=== PATIENT | female | born 1950 | race Caucasian/White ===

== ENCOUNTER 2025-02-17 14:26 | Outpatient (CLI) | payer MEDICARE, MEDICAID, SELFPAY ==
--- NOTE | ~2025-02-17 | XR_ITS ---
XR hip BI 2V w AP pelvis 02/17/2025 15:16 Indication: Radiculopathy and hip pain Procedure: AP pelvis and 2 views each hip Comparison: No prior studies for comparison. Findings: There is mild symmetric osteoarthritis of the hips. No fracture, subluxation or dislocation . Pelvic rings are intact. Sacral foramen are symmetric. Impression: 1: Mild bilateral symmetric osteoarthritis of the hips. Reviewed, dictated and finalized at location A. Impression: 1: Mild bilateral symmetric osteoarthritis of the hips.
--- NOTE | ~2025-02-17 | XR_ITS ---
EXAMINATION: XR lumbar spine 2-3V DATE: 02/17/2025 15:16 INDICATION: Lumbar radiculopathy. TECHNIQUE: 3 views of lumbar spine were obtained. COMPARISON: None. FINDINGS: There is 4 degrees levocurvature of lumbar spine. There are chronic compression fractures o f T12 and L1 with 2/5 loss of height. There is mildly decreased disc height at L3-L4. There are endpl ate osteophytes at all levels. There is multilevel facet joint osteoarthritis, severe in lower lumbar spine. IMPRESSION: 1. Mild lumbar spondylosis. Reviewed, dictated and finalized at location A. IMPRESSION: 1. Mild lumbar spondylosis.
--- NOTE | ~2025-02-17 | XR_ITS ---
HISTORY: Radiculopathy/pain in hips COMPARISON: None TECHNIQUE: 2 views of the cervical spine were performed. FINDINGS: Visualization of the cervical spine to the inferior endplate of T1. Anterior fixation is identified at the levels of C4 through C7. No prevertebral soft tissue swelling is appreciated. The dens is equidistant between the pillars, without asymmetry. Air column within the trachea is midline. The visualized portions of the bilateral upper lung rausch are unremarkable. IMPRESSION: Anterior fixation of the cervical spine, as detailed above. Reviewed, dictated and finalized at location A.
--- OUTSIDE RECORDS SUMMARY | 2025-02-17 15:58 | XMS_ITS | Encounter Summary ---
Author Organization [facility] Address [address] [place] [address] Care Team Providers Care Propagator Laborer Name Role Phone Doretha Quiros MD Primary Care Provider [phone] Encounter Details Date Type Department Care Team (Late st Contact Info) Description 07/25/2006 Orders Only [facility] Internal Medicine Medical [place] [facility] [address] [facility] [address] [address] Doretha Quiros MD [address] [place] [address] [address] [place] [address] Social History Tobacco Use Types Packs/Day Years Used Date Smoking Tobacco: Never Assessed Comments Unknown Sex and Gender Information Value Date Recorded Sex Assigned at Not on file Legal Sex Female 3:37 AM BATHROOM TILING PROFESSIONAL Gender Identity Not on file Sexual Orientation Not on file documented as of this encounter Progress Notes * Doretha Quiros MD - 09/02/2008 4:46 PM CDT TIME:09:05 am PATIENT`S HOME PHONE: PATIENT`S WORK PHONE: PATIENT`S INSURANCE: [facility] Open Lending [facility] WHO TOOK THE CALL: Angela Mckeon I GENERAL INFORMATION WHO CALLED: Patient called. CURRENT ALLERGY LIST: NKDA PHARMACY NUMBER: mail to pt PROBLEMS: celebrex not covered and needs to get something else mailed out to her today SECTION 1: DOCTOR`S RESPONSE: al 07/25/06 at 09:11 am MEDICATIONS: Call in to Pharmacy CELEBREX ORAL CAPSULE CONVENTIONAL 200 MG, 1 Every Day, 90 Dispensed, 3 Fills, status: DISCONTINUED, 07/25/2006. PIROXICAM ORAL CAPSULE CONVENTIONAL 20 MG, 1 Every Day, 90 Dispensed, 3 Fills, status: NEW PRESCRIPTION, 07/25/2006. FINAL ACTION: raymlm 07/25/06 at 09:[address] caballero printer to be mailed. ADDITIONAL COMMENTS: done Electronically Signed by: Angela Mckeon on Tuesday, July 25, 2006 documented in this encounter Plan of Treatment Not on file documented as of this encounter Visit Diagnoses Not on filedocumented in this encounter Care Teams Propagator Laborer Relationship Specialty Start Date End Date Doretha Quiros MD PCP - General 11/27/06 12/24/24 NO DME 08/13/18 documented as of this encounter
--- OUTSIDE RECORDS SUMMARY | 2025-02-17 15:58 | XMS_ITS | Encounter Summary ---
Author Organization [facility] Address [address] [place] [address] Care Team Providers Care Air Gun Operator Name Role Phone Doretha Quiros MD Primary Care Provider [phone] Encounter Details Date Type Department Care Team (Latest Contact Info) Description 07/06/2007 Outpatient Historical [facility] Internal Medicine Medical [place] [facility] [address] [facility] [address] [address] Doretha Quiros MD [address] [place] [address] [address] [place] [address] Cellulitis and Abscess of Upper Arm and Forearm (Primary Dx) Social History Tobacco Use Types Packs/Day Years Used Date Smoking Tobacco: Never Assessed Comments Unknown Sex and Gender Information Value Date Recorded Sex Assigned at Not on file Legal Sex Female 3:37 AM PATHOLOGY LABORATORY AIDE Gender Identity Not on file Sexual Orientation Not on file documented as of this encounter Plan of Treatment Not on file documented as of this encounter Visit Diagnoses Diagnosis Cellulitis and abscess of upper arm and forearm- Primary documented in this encounter Care Teams Air Gun Operator Relationship Specialty Start Date End Date Doretha Quiros MD PCP - General 11/27/06 12/24/24 NO DME 08/13/18 documented as of this encounter
--- OUTSIDE RECORDS SUMMARY | 2025-02-17 15:58 | XMS_ITS | Clinical Summary ---
Author Organization [facility] Address [address] [place] [address] Care Team Providers Care Loom Doffer Name Role Phone Doretha Quiros MD Primary Care Provider [phone] Source Comments [facility],non-owned Affiliates and Associated Physician Practices is amultiple site organization consisting of ambulatory clinics and hospital sitesin [place], [place], [place] and [place]. This disclosure is being madepursuant to the Care Everywhere program and may not contain all information available regarding this patient. Last updated 18.[facility] Allergies No known active allergies Medications * Be aware that medications may not be up to date on this document. Alwaysverify current medications with the patient. Medication Sig Dispensed Refills Start Date End Date Status lisinopril-hydroCHLOR Othiazide (PRINZIDE; ZESTORETIC) 20-12.5 MG tablet 01/27/2017 Active baclofen (LIORESAL) 10 MG tablet 02/27/2017 Active raNITIdine (ZANTAC) 150 MG tablet 01/27/2017 Active omeprazole (PRILOSEC) 20 MG capsule 01/22/2017 Active HYDROcodone-acetamino phen (NORCO) 10-325 MG tablet TK 1-2 TS PO Q 4-6 H PRN P 0 08/21/2018 Active metoprolol succinate XL 24hr (TOPROL XL) 100 MG tablet 08/13/2018 Active simvastatin (ZOCOR) 40 MG tablet 08/14/2018 Active traMADol (ULTRAM) 50 MG tablet Take 100 mg by mouth every 6 hours as needed Active Calcium Carbonate-Vit D-Min (CALCIUM 1200 PO) Active amLODIPine (NORVASC) 5 MG tablet 02/01/2019 Active anastrozole (ARIMIDEX) 1 MG tablet TAKE 1 TABLET BY MOUTH DAILY. START AFTER RADIATION IS COMPLETED.. 02/07/2019 Active traZODone (DESYREL) 100 MG tablet Take 100 mg by mouth at bedtime Active Active Problems Problem Noted Date Diagnosed Date Mixed conductive and sensori neural hearing loss of both ears 02/22/2019 Retraction of tympanic membrane of right ear 03/2019 Disturbance of skin sensation 08/31/2018 Acute pain of right knee 08/31/2018 Bilateral low back pain without sciatica 018 Cervicalgia 08/31/2018 Complex tear of medial menis cus of right knee as current injury 08/31/2018 Diffuse pain 08/31/2018 Enthesopathy of hip region 08/31/2018 Ganglion of joint 08/31/2018 Inflammatory polyarthropathy 08/31/2018 Low back pain 08/31/2018 Myopathy 08/31/2018 Other chronic postoperative pain 08/31/2018 Other internal derangements of right knee 2017 Other meniscus derangements, posterior horn of medial meniscus, right knee 08/31/2018 Pain, chronic postoperative 08/31/2018 Primary osteoarthritis of fi rst carpometacarpal joint of left hand 08/31/2018 Primary osteoarthritis of right knee 08/31/2018 Spinal stenosis in cervical region 08/31/2018 Spinal stenosis of cervical region 08/31/2018 Spinal stenosis of lumbar region 08/31/2018 Spondylosis of cervical brian 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 08/31/2018 Status post arthroscopy of right knee 08/31/2018 Strain of other muscle(s) an d tendon(s) at lower leg level, right leg, initial encounter 08/31/2018 Primary osteoarthritis of left knee 08/13/2018 Invasive ductal carcinoma of breast, stage 1, le ft 02/22/2018 Overview (08/31/2018): Overview: PATHOLOGY: Date: 02/08/18 bx; 02/19/18 lump with SLN Breast: Left Cell type: IDC, 1.1 cm ER: (+) 8/8 MT: (+) 8/8 Her2 homa: (not) amplified Grade: IG (NH7) Lymph node status:(-) 0/3 LVI: (-) not present Staging: T1c N0 Mx Stage: 1 Body mass index (bmi) 29.0-29.9, adult 8 Conductive hearing loss of r ight ear with restricted hearing of left ear 04/05/2017 Hyperparathyroidism, primary 01/16/2017 Chronic right mastoiditis 09/16/2016 Gastroesophageal reflux disease without esophagi tis 05/06/2016 PEDERSON (nonalcoholic steatohepatitis) 05/06/2016 Other specified disorders of eustachian tube, bi lateral 03/23/2016 Other specified disorders of tympanic membrane, bilateral 03/23/2016 ETD (Eustachian tube dysfunction), bilateral 02/2016 Retracted tympanic membrane, bilateral 6 Wet senile macular degeneration 10/21/2014 Spondylosis without myelopat hy or radiculopathy, lumbar region 12/26/2013 Overview (08/31/2018): Overview: Dr Canchola status post RFN lumbar nerves 2011. Allergic rhinitis 09/06/2010 Glaucoma of both eyes 01/29/2008 Essential hypertension 08/19/2005 Generalized osteoarthrosis, unspecified site Hypercholesteremia 08/19/2005 Prediabetes 08/19/2005 Immunizations Name Administration Dates Next Due PNEUMOCOCCAL PPSV23 08/01/2017,12/26/2013 Pneumococcal Pcv13 Conj 04/22/2015 Family History Medical History Relation Name Comments Arthritis - Rheumatoid Brother Cancer Father Hearing Loss Father High Cholesterol Father Arthritis - Rheumatoid Mother Diabetes Mother Glaucoma Mother Hypertension Mother Osteoporosis Mother Peptic Ulcer Disease Mother Relation Name Status Comments Brother Father Mother Social History Tobacco Use Types Packs/Day Years Used Date Smoking Tobacco: Never Smokeless Tobacco: Never Alcohol Use Standard Drinks/Week Comments No 0 (1 standard drink = 0.6 oz pur e alcohol) Sex and Gender Information Value Date Recorded Sex Assigned at Not on file Gender Identity Not on file Sexual Orientation Not on file Last Filed Vital Signs Vital Sign Reading Time Taken Comments Blood Pressure 118/70 02/22/2019 1:36 PM CDT Pulse 60 02/22/2019 1:36 PM CDT Temperature - - Respiratory Rate - - Oxygen Saturation - - Inhaled Oxygen Concentration - - Weight 74.8 kg (165 lb) 02/22/2019 1:36 PM CDT Height 157.5 cm (5' 2 ) 02/22/2019 1:36 PM CDT Body Mass Index 30.18 02/22/2019 1:36 PM CDT Plan of Treatment Health Maintenance Due Date Last Done Comments BONE DENSITY TESTING 1948 COLOGUARD (AGES 45-75) - COL ON CA SCREENING 1948 COLON MONITORING 1948 COLONOSCOPY - COLON CA SCREENING 1948 CT COLONOGRAPHY - COLON CA SCREENING 1950 Colorectal Cancer Screening 1948 FIT - COLON CA SCREENING 1948 FLEX SIG - COLON CA SCREENING 1948 MAMMOGRAM 1950 01/22/2019, 07/24/2018 HEPATITIS C SCREENING 11/20/1966 DTAP/TDAP/TD VACCINES (1 - Tdap) 1967 ZOSTER VACCINE (1 of 2) 1998 SCREENING FOR DIABETES 02/22/2019 Respiratory Syncytial Virus (RSV) Vaccine Pt: or over 60 yrs (1 - 1-dose 75+ series) 2023 COVID-19 VACCINE ( - 2023-2 5 season) 2024 INFLUENZA VACCINE (#1) 2024 DEPRESSION SCREENING 11/20/2024 MEDICARE AWV CALENDAR YEAR 2024 PNEUMOCOCCAL VACCINE 50+ Completed 017, 04/22/2015, 12/26/2013 HEPATITIS B VACCINE Aged Out No longe r eligible based on patient's age to complete this topic HIB VACCINE Aged Out No longer eligi ble based on patient's age to complete this topic HPV VACCINE Aged Out No longer eligi ble based on patient's age to complete this topic MENINGOCOCCAL (Group B) VACCINE SHARED DECISION-MAKING Aged Out No longer eligible based on patient's age to complete this topic MENINGOCOCCAL GROUPS A/C/Y/W VACCINE Aged Out No longer eligible b ased on patient's age to complete this topic Care Teams Loom Doffer Relationship Specialty Start Date End Date Doretha Quiros MD [address] [place] [address] PCP - General 03/16/16
--- OUTSIDE RECORDS SUMMARY | 2025-02-17 15:58 | XMS_ITS | Encounter Summary ---
Author Organization [facility] Address [address] [place] [address] Care Team Providers Care Correction Officer [place] Name Role Phone Doretha Quiros MD Primary Care Provider [phone] Encounter Details Date Type Department Care Team (Latest Contact Info) Description 09/09/2008 Outpatient Historical [facility] Doretha Morrison MD [address] [place] [address] Restless Legs Syndrome (RLS) Social History Tobacco Use Types Packs/Day Years Used Date Smoking Tobacco: Never Assessed Comments No Sex and Gender Information Value Date Recorded Sex Assigned at Not on file Legal Sex Female 3:37 AM RN PROCEDURE Gender Identity Not on file Sexual Orientation Not on file documented as of this encounter Plan of Treatment Not on file documented as of this encounter Visit Diagnoses Diagnosis Restless legs syndrome (RLS) documented in this encounter Care Teams Correction Officer [place] [facility] Relationship Specialty Start Date End Date Doretha Quiros MD PCP - General 11/27/06 12/24/24 NO DME 08/13/18 documented as of this encounter
--- OUTSIDE RECORDS SUMMARY | 2025-02-17 15:58 | XMS_ITS | Encounter Summary ---
Author Organization [facility] Address [address] [place] [address] Care Team Providers Care Associate Professor Of Art Name Role Phone Doretha Quiros MD Primary Care Provider [phone] Encounter Details Date Type Department Care Team (Late st Contact Info) Description 12/04/2006 Outpatient Historical [facility] Internal Medicine Medical [place] [facility] [address] [facility] [address] [address] Doretha Quiros MD [address] [place] [address] [address] [place] [address] Social History Tobacco Use Types Packs/Day Years Used Date Smoking Tobacco: Never Assessed Comments Unknown Sex and Gender Information Value Date Recorded Sex Assigned at Not on file Legal Sex Female 3:37 AM SENIOR LINUX UNIX ENGINEER Gender Identity Not on file Sexual Orientation Not on file documented as of this encounter Last Filed Vital Signs Vital Sign Reading Time Taken Comments Blood Pressure 140/70 12/04/2006 10:15 AM SENIOR LINUX UNIX ENGINEER Pulse 76 12/04/2006 10:15 AM SENIOR LINUX UNIX ENGINEER Temperature 36.4 C (97.6 F) 12/04/2006 10:15 AM SENIOR LINUX UNIX ENGINEER Respiratory Rate - - Oxygen Saturation - - Inhaled Oxygen Concentration - - Weight 90.7 kg (200 lb) 12/04/2006 10:15 AM SENIOR LINUX UNIX ENGINEER Height - - Body Mass Index 36.58 07/18/2006 1:00 PM CDT documented in this encounter Plan of Treatment Not on file documented as of this encounter Visit Diagnoses Not on filedocumented in this encounter Care Teams Associate Professor Of Art Relationship Specialty Start Date End Date Doretha Quiros MD PCP - General 11/27/06 12/24/24 NO DME 08/13/18 documented as of this encounter
--- OUTSIDE RECORDS SUMMARY | 2025-02-17 15:58 | XMS_ITS | Encounter Summary ---
Author Organization [facility] Address [address] [place] [address] Care Team Providers Care Plumbing Installer Name Role Phone Doretha Quiros MD Primary Care Provider [phone] Encounter Details Date Type Department Care Team (Late st Contact Info) Description 01/29/2007 Outpatient Historical [facility] Internal Medicine Medical [place] [employer] [facility] [address] [facility] [address] [address] Doretha Quiros MD [address] [place] [address] [address] [place] [address] Social History Tobacco Use Types Packs/Day Years Used Date Smoking Tobacco: Never Assessed Comments Unknown Sex and Gender Information Value Date Recorded Sex Assigned at Not on file Legal Sex Female 3:37 AM INSURANCE BUSINESS ANALYST Gender Identity Not on file Sexual Orientation Not on file documented as of this encounter Last Filed Vital Signs Vital Sign Reading Time Taken Comments Blood Pressure 140/70 01/29/2007 10:15 AM CDT Pulse 64 01/29/2007 10:15 AM CDT Temperature 36.7 C (98 F) 01/29/2007 10:15 AM CDT Respiratory Rate - - Oxygen Saturation - - Inhaled Oxygen Concentration - - Weight 83.5 kg (184 lb) 01/29/2007 10:15 AM CDT Height - - Body Mass Index 33.65 07/18/2006 1:00 PM CDT documented in this encounter Plan of Treatment Not on file documented as of this encounter Visit Diagnoses Not on filedocumented in this encounter Care Teams Plumbing Installer Relationship Specialty Start Date End Date Doretha Quiros MD PCP - General 11/27/06 12/24/24 NO DME 08/13/18 documented as of this encounter
--- OUTSIDE RECORDS SUMMARY | 2025-02-17 15:58 | XMS_ITS | Encounter Summary ---
Author Organization [facility] Address [address] [place] [address] Care Team Providers Care Tire Finisher Name Role Phone Doretha Quiros MD Primary Care Provider [phone] Encounter Details Date Type Department Care Team (Latest Contact Info) Description 12/15/2008 Outpatient Historical [facility], [address] Doretha Quiros MD [address] [place] [address] Routine Gynecological Examination Social History Tobacco Use Types Packs/Day Years Used Date Smoking Tobacco: Never Alcohol Use Standard Drinks/Week Comments Not Asked 0 (1 standard drink = 0.6 oz pur e alcohol) Comments No Sex and Gender Information Value Date Recorded Sex Assigned at Not on file Legal Sex Female 3:37 AM LAMP ASSEMBLER Gender Identity Not on file Sexual Orientation Not on file documented as of this encounter Plan of Treatment Not on file documented as of this encounter Procedures Procedure Name Priority Date/Time Associated Diagnosis Comments CERV/VAG CYTOPATH, THIN PREP MATERIALS MANAGEMENT CLERK AND HPV Routine 12/15/2008 8:45 AM LAMP ASSEMBLER documented in this encounter Results * CERV/VAG CYTOPATH, THIN PREP MATERIALS MANAGEMENT CLERK AND HPV (12/15/2008 8:45 AM LAMP ASSEMBLER) SOURCE Information not provided [facility] LAST MENSTRUAL PERIOD Information not provided [facility] HPV HIGH RISK DNA DETECTION NOT DETECTED [facility] Comment: REFERENCE RANGE: NOT DETECTED TESTED FOR HIGH RISK TYPES 16,18,31,33,35,39,45,51,52, 56,58,59,68. THE ANALYTICAL PERFORMANCE CHARACTERISTICS OF THIS ASSAY, WHEN USED TO TEST SUREPATH OR VAGINAL SPECIMENS, HAVE BEEN DETERMINED BY [facility]. METHODOLOGY: HYBRID CAPTURE WITH SIGNAL AMPLIFICATION Lab test performed by: [facility] [place] [address] [employer] [place] [address] JAMILA BALDWIN MD PREV BX: Information not provided [facility] ENTERPRISE SECURITY ARCHITECT: LM, CT(ASCP) [facility] Comment: Lab test performed by: [facility] [address] [place] [address] JAMILA BALDWIN MD PAP INTERP Negative for intraepithelial lesion or malignancy. Atrophic pattern; predominantly parabasal cells [facility] REPORT STATUS FINAL [facility] PREV PAP: Information not provided [facility] Concrete Mixing Plant Laborer Pap Comment This Pap test has been evaluated with computer assisted technology. [facility] CLINICAL INFORMATION Information not provided [facility] ADEQUACY: SATISFACTORY FOR EVALUATION [facility] Specimen from uterine cervix (specimen) 12/15/2008 8:45 AM LAMP ASSEMBLER 12/16/2008 8:51 AM LAMP ASSEMBLER us Doretha Quiros MD PATHOLOGY/CYTOLOGY ORDERABLE S Edited INTERFACE SYSTEM Refer to clinic/hospital department [facility] CLIA# [id number] [address] [facility] [address] documented in this encounter Visit Diagnoses Diagnosis Routine gynecological examination documented in this encounter Care Teams Tire Finisher Relationship Specialty Start Date End Date Doretha Quiros MD PCP - General 11/27/06 12/24/24 NO DME 08/13/18 documented as of this encounter
--- OUTSIDE RECORDS SUMMARY | 2025-02-17 15:58 | XMS_ITS | Encounter Summary ---
Author Organization [facility] Address [address] [place] [address] Care Team Providers Care Family Support Worker Name Role Phone Doretha Quiros MD Primary Care Provider [phone] Encounter Details Date Type Department Care Team (Late st Contact Info) Description 09/06/2007 Outpatient Historical [facility] Internal Medicine Medical [place] [facility] [address] [facility] [address] [address] Jovon Fernandes MD [address] [place] [address] Social History Tobacco Use Types Packs/Day Years Used Date Smoking Tobacco: Never Assessed Comments Unknown Sex and Gender Information Value Date Recorded Sex Assigned at Not on file Legal Sex Female 3:37 AM CUTTER AND PASTER PRESS CLIPPINGS Gender Identity Not on file Sexual Orientation Not on file documented as of this encounter Last Filed Vital Signs Vital Sign Reading Time Taken Comments Blood Pressure 130/72 09/06/2007 2:00 PM CDT Pulse 88 09/06/2007 2:00 PM CDT Temperature 36.8 C (98.2 F) 09/06/2007 2:00 PM CDT Respiratory Rate - - Oxygen Saturation - - Inhaled Oxygen Concentration - - Weight 80.7 kg (178 lb) 09/06/2007 2:00 PM CDT Height - - Body Mass Index 32.56 07/06/2007 9:45 AM CDT documented in this encounter Plan of Treatment Not on file documented as of this encounter Visit Diagnoses Not on filedocumented in this encounter Care Teams Family Support Worker Relationship Specialty Start Date End Date Doretha Quiros MD PCP - General 11/27/06 12/24/24 NO DME 08/13/18 documented as of this encounter
--- OUTSIDE RECORDS SUMMARY | 2025-02-17 15:58 | XMS_ITS | Encounter Summary ---
Author Organization [facility] Address [address] [place] [address] Care Team Providers Care Oracle Business Analyst Name Role Phone Doretha Quiros MD Primary Care Provider [phone] Encounter Details Date Type Department Care Team (Latest Contact Info) Description 11/28/2007 Outpatient Historical [facility] Doretha Morrison MD [address] [place] [address] Other Screening Mammogram Social History Tobacco Use Types Packs/Day Years Used Date Smoking Tobacco: Never Assessed Comments Unknown Sex and Gender Information Value Date Recorded Sex Assigned at Not on file Legal Sex Female 3:37 AM HOST/HOSTESS HEAD Gender Identity Not on file Sexual Orientation Not on file documented as of this encounter Plan of Treatment Not on file documented as of this encounter Visit Diagnoses Diagnosis Other screening mammogram documented in this encounter Care Teams Oracle Business Analyst Relationship Specialty Start Date End Date Doretha Quiros MD PCP - General 11/27/06 12/24/24 NO DME 08/13/18 documented as of this encounter
--- OUTSIDE RECORDS SUMMARY | 2025-02-17 15:58 | XMS_ITS | Encounter Summary ---
Author Organization [facility] Address [address] [place] [address] Care Team Providers Care Ship'S Carpenter Name Role Phone Doretha Quiros MD Primary Care Provider [phone] Encounter Details Date Type Department Care Team (Late st Contact Info) Description 06/17/2008 Outpatient Historical [facility] Iveth Cool MD [address] [place] [address] Social History Tobacco Use Types Packs/Day Years Used Date Smoking Tobacco: Never Assessed Comments Unknown Sex and Gender Information Value Date Recorded Sex Assigned at Not on file Legal Sex Female 3:37 AM REGIONAL GUIDE Gender Identity Not on file Sexual Orientation Not on file documented as of this encounter Plan of Treatment Not on file documented as of this encounter Procedures Procedure Name Priority Date/Time Associated Diagnosis Comments PATHOLOGY Routine 06/17/2008 3:18 PM CDT documented in this encounter Results * PATHOLOGY (06/17/2008 3:18 PM CDT) FINAL REPORT [address] [address] Patient: YESENIA REILLY : 1950 Procedure Date: 06/17/2008 Accession Date: 06/17/2008 Case No: [id number] Ordering Dr: IVETH COOL Case types AW, BW, FW, NW and SH are performed by [facility], [place], [place] SURGICAL PATHOLOGY & NON-GYNECOLOGIC CYTOPATHOLOGY REPORT DIAGNOSIS STOMACH, BIOPSY: - MILDLY ACTIVE CHRONIC GASTRITIS. Specimen Description: Gastric biopsy. Operative Procedure: Colonoscopy. Patient Information/History/Di agnosis: Gastritis. Rule out H. pylori infection. Duodenal ulcer. Gross: Received in one container labeled Yesenia Reilly., gastric biopsy are three briggs tissue fragments ranging from 0.2 to 0.4 cm in greatest dimension, which are submitted in block A1. [facility] 06.17.2008 07:03 pm Microscopic: The slides are labeled [id number], Yesenai Reilly. Sections of the gastric biopsy show gastric mucosa with diffuse, mild lamina propria of chronic inflammation, associated with elongation, tortuosity, and mucin depletion of the foveolae. Neutrophils are rare, and H. pylori organisms are not identified on H&E; immunohistochemical stain for H. pylori is negative. Note on use of immunocytochemistry reagents: This test was developed and its performance characteristic determined by [facility], Department of Laboratory Medicine. It has not been cleared or approved by the U.S. Food and Drug Administration. The FDA has determined that such clearance or approval is not necessary. The test is used for clinical purpose. It should not be regarded as investigational or for research. This laboratory is certified to perform high complexity clinical testing. /[facility] 06.18.2008 01:26 pm Staging Form: No. ELECTRONIC SIGNATURE FOR AJEL BRAVO MD- 06/18/08 03:30 pm INTERFACE SYSTEM 06/17/2008 3:18 PM CDT us Iveth Cool MD PATHOLOGY/CYTOLOGY ORDERABLE S Final Result INTERFACE SYSTEM Refer to clinic/hospital department documented in this encounter Visit Diagnoses Not on filedocumented in this encounter Care Teams Ship'S Carpenter Relationship Specialty Start Date End Date Doretha Quiros MD PCP - General 11/27/06 12/24/24 NO DME 08/13/18 documented as of this encounter
--- OUTSIDE RECORDS SUMMARY | 2025-02-17 15:58 | XMS_ITS | Encounter Summary ---
Author Organization [facility] Address [address] [place] [address] Care Team Providers Care Installment Loan Collector Name Role Phone Doretha Quiros MD Primary Care Provider [phone] Encounter Details Date Type Department Care Team (Late st Contact Info) Description 07/31/2007 Orders Only [facility] Internal Medicine Medical [place] [facility] [address] [address] Doretha Quiros MD [address] [place] [address] [address] [place] [address] Social History Tobacco Use Types Packs/Day Years Used Date Smoking Tobacco: Never Assessed Comments Unknown Sex and Gender Information Value Date Recorded Sex Assigned at Not on file 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
--- OUTSIDE RECORDS SUMMARY | 2025-02-17 15:58 | XMS_ITS | Encounter Summary ---
Author Organization [facility] Address [address] [place] [address] Care Team Providers Care Associate Justice Name Role Phone Doretha Quiros MD Primary Care Provider [phone] Encounter Details Date Type Department Care Team (Latest Contact Info) Description 12/19/2006 Outpatient Historical [facility] Doretha Quiros MD [address] [place] [address] Observation for Other Specified Suspected Conditions (Primary Dx) Social History Tobacco Use Types Packs/Day Years Used Date Smoking Tobacco: Never Assessed Comments Unknown Sex and Gender Information Value Date Recorded Sex Assigned at Not on file Legal Sex Female 3:37 AM SAW BOSS Gender Identity Not on file Sexual Orientation Not on file documented as of this encounter Plan of Treatment Not on file documented as of this encounter Visit Diagnoses Diagnosis Observation for other specified suspected conditions- Primary documented in this encounter Care Teams Associate Justice Relationship Specialty Start Date End Date Doretha Quiros MD PCP - General 11/27/06 12/24/24 NO DME 08/13/18 documented as of this encounter
--- OUTSIDE RECORDS SUMMARY | 2025-02-17 15:58 | XMS_ITS | Encounter Summary ---
Author Organization [facility] Address [address] [place] [address] Care Team Providers Care Residential Treatment Staff Name Role Phone Doretha Quiros MD Primary Care Provider [phone] Reason for Visit * Reason Comments Medication Refill Encounter Details Date Type Department Care Team (Late st Contact Info) Description 03/09/2020 Refill [facility] Internal Medicine Medical [facility] [address] [address] Doretha Quiros MD [facility] [address] [place] [address] Essential hypertension; Primary insomnia Social History Tobacco Use Types Packs/Day Years Used Date Smoking Tobacco: Never Smokeless Tobacco: Never Alcohol Use Standard Drinks/Week Comments No 0 (1 standard drink = 0.6 oz pur e alcohol) Comments No Sex and Gender Information Value Date Recorded Sex Assigned at Not on file Legal Sex Female 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 If so would change simvastatin to rosuvastatin or atorvastatin Also needs 6 mo f/u done as video visit please schedule- suggest JF or I can do documented in this encounter Plan of Treatment Not on file documented as of this encounter Visit Diagnoses Diagnosis Essential hypertension Unspecified essential hypertension Primary insomnia Persistent disorder of initiating or maintaining sleep documented in this encounter Additional Health Concerns Assessment Noted Time PHQ-9 Depression Total Score: 2 08/09/20 19 10:00 AM CDT documented as of this encounter Care Teams Residential Treatment Staff Relationship Specialty Start Date End Date Doretha Quiros MD PCP - General 11/27/06 12/24/24 NO DME 08/13/18 documented as of this encounter
--- OUTSIDE RECORDS SUMMARY | 2025-02-17 15:58 | XMS_ITS | Encounter Summary ---
Author Organization [facility] Address [address] [place] [address] Care Team Providers Care Cyber Workforce Developer And Manager Name Role Phone Doretha Quiros MD Primary Care Provider [phone] Reason for Visit * Reason Comments Medication Refill Encounter Details Date Type Department Care Team (Late st Contact Info) Description 05/20/2018 Refill [facility] Internal Medicine Medical [place] [facility] [address] [address] Leigha Long, ANP [address] [place] [address] Gastroesophageal reflux disease without esophagitis; Essential hypertension Social History Tobacco Use Types Packs/Day Years Used Date Smoking Tobacco: Never Smokeless Tobacco: Never Alcohol Use Standard Drinks/Week Comments No 0 (1 standard drink = 0.6 oz pur e alcohol) Comments No Sex and Gender Information Value Date Recorded Sex Assigned at Not on file Legal Sex Female 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 Gender Identity Not on file Sexual Orientation Not on file Occupation Industry Job Start Date Job End Date Not on file Not on file Not on file Not on file documented as of this encounter Plan of Treatment Not on file documented as of this encounter Visit Diagnoses Diagnosis Gastroesophageal reflux disease without esophagitis Esophageal reflux Essential hypertension Unspecified essential hypertension documented in this encounter Additional Health Concerns Assessment Noted Time PHQ-9 Depression Total Score: 2 01/19/20 18 10:00 AM BALL 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 documented as of this encounter Care Teams Cyber Workforce Developer And Manager Relationship Specialty Start Date End Date Doretha Quiros MD PCP - General 11/27/06 12/24/24 NO DME 08/13/18 documented as of this encounter
--- OUTSIDE RECORDS SUMMARY | 2025-02-17 15:58 | XMS_ITS | Encounter Summary ---
Author Organization [facility] Address [address] [place] [address] Care Team Providers Care Senior Portfolio Manager Name Role Phone Doretha Quiros MD Primary Care Provider [phone] Encounter Details Date Type Department Care Team (Late st Contact Info) Description 01/29/2008 Outpatient Historical [facility] Internal Medicine Medical [place] [facility] [address] [address] Doretha Quiros MD [address] [place] [address] [address] [place] [address] Social History Tobacco Use Types Packs/Day Years Used Date Smoking Tobacco: Never Assessed Comments Unknown Sex and Gender Information Value Date Recorded Sex Assigned at Not on file 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
--- OUTSIDE RECORDS SUMMARY | 2025-02-17 15:58 | XMS_ITS | Encounter Summary ---
Author Organization [facility] Address [address] [place] [address] Care Team Providers Care Hospital Superintendent Name Role Phone Doretha Quiros MD Primary Care Provider [phone] Encounter Details Date Type Department Care Team (Late st Contact Info) Description 07/18/2006 Outpatient Historical [facility] Internal Medicine [facility] [place] [facility] [address] [address] Doretha Quiros MD [address] [place] [address] [address] [place] [address] Social History Tobacco Use Types Packs/Day Years Used Date Smoking Tobacco: Never Assessed Comments Unknown Sex and Gender Information Value Date Recorded Sex Assigned at Not on file 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 Gender Identity Not on file Sexual Orientation Not on file documented as of this encounter Last Filed Vital Signs Vital Sign Reading Time Taken Comments Blood Pressure 140/80 07/18/2006 1:00 PM CDT Pulse 80 07/18/2006 1:00 PM CDT Temperature - - Respiratory Rate - - Oxygen Saturation - - Inhaled Oxygen Concentration - - Weight 90.7 kg (200 lb) 07/18/2006 1:00 PM CDT Height 157.5 cm (5' 2 ) 07/18/2006 1:00 PM CDT Body Mass Index 36.58 07/18/2006 1:00 PM CDT documented in this encounter Plan of Treatment Not on file documented as of this encounter Visit Diagnoses Not on filedocumented in this encounter Care Teams Hospital Superintendent Relationship Specialty Start Date End Date Doretha Quiros MD PCP - General 11/27/06 12/24/24 NO DME 08/13/18 documented as of this encounter
--- OUTSIDE RECORDS SUMMARY | 2025-02-17 15:58 | XMS_ITS | Encounter Summary ---
Author Organization [facility] Address 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
--- OUTSIDE RECORDS SUMMARY | 2025-02-17 15:58 | XMS_ITS | Clinical Summary ---
Author Organization [facility] Address [address] [place] [address] Care Team Providers Care Brand Communications Manager Name Role Phone Doretha Quiros MD Primary Care Provider [phone] Social History Tobacco Use Types Packs/Day Years Used Date Smoking Tobacco: Never Assessed Comments Unknown Sex and Gender Information Value Date Recorded Sex Assigned at Not on file Legal Sex Female 4:17 PM CDT Gender Identity Not on file Sexual Orientation Not on file Plan of Treatment Health Maintenance Due Date Last Done Comments Hepatitis C 1966 DTaP, Tdap and Td Vaccines ( 1 - Tdap) 1967 Zoster Vaccines (1 of 2) 1998 Annual Medicare Wellness Visit 2013 Dexa Scan (General) 2013 Pneumococcal Vaccine: 65+ Ye ars (1 of 1 - PCV) 2013 RSV Immunization or 60+ Years (1 - 1-dose 75+ series) 2023 COVID-19 Vaccine ( - 2023-2 5 season) 2024 Meningococcal B Vaccine Aged Out No l onger eligible based on patient's age to complete this topic Meningococcal Vaccine Aged Out No addy annie eligible based on patient's age to complete this topic RSV Immunizations Under 20 Months Aged Out No longer eligible based on patient's age to complete this topic Insurance [facility] Care Teams Brand Communications Manager Relationship Specialty Start Date End Date Doretha Quiros MD PCP - General INTERNAL MEDICINE 11/20/22
--- OUTSIDE RECORDS SUMMARY | 2025-02-17 15:58 | XMS_ITS | Encounter Summary ---
Author Organization [facility] Address 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 Gender Identity Not on file Sexual Orientation Not on file documented as of this encounter Plan of Treatment Not on file documented as of this encounter Procedures Procedure Name Priority Date/Time Associated Diagnosis Comments XR ESOPHAGUS BARIUM SWALLOW Timed Study 02/11/2008 8:30 AM CDT documented in this encounter Results * XR ESOPHAGUS BARIUM SWALLOW (02/11/2008 8:30 AM CDT) Anatomical Region Laterality Modality Abdomen Other 02/11/2008 8:30 AM CDT Narrative 02/11/2008 11:48 AM CDT [address] [address] Admit Date: 02/11/2008 YESENIA REILLY Sex: F Admit Prov: MARK CEVALLOS Date: 1950 Primary Care Prov: MARK CEVALLOS CMRN: [id number] [facility] [address] [place] [address] IMAGING SERVICES Ordering Prov: N/A Accession Number: [id number] Interpretation Esophagram barium swallow 02/11/2008 Clinical history: History of gastroesophageal reflux disease, chest pain Barium evaluation of the esophagus demonstrates normal deglutition. The esophagus is normal in caliber and smooth in outline but shows a moderate degree of distal presbyesophageal change in motility with tertiary waves observed. The esophagus is somewhat slow to clear with air swallowing. However definite reflux was not observed at the time of the exam. Anatomical abnormality of the gastroesophageal junction is not seen and there is no evidence of stricture or obstruction. No extrinsic abnormalities are present. Impression: Moderate distal presbyesophageal change in motility with some tertiary waves observed and otherwise negative esophageal findings. . Dictated by: JULI CABRERA 02/11/2008 09:20 Electronically signed by: JULI CABRERA 02/11/2008 11:48 Transcribed: 02/11/2008 11:47 AMK Procedure Note Provider, Historical - 02/11/2008 [facility] [address] [place], [place] [address] Admit Date: 02/11/2008 YESENIA REILLY Sex: F Admit Prov: MARK CEVALLOS Date: 1950 Primary Care Prov: MARK CEVALLOS CMRN: [id number] [facility] [address] [place] [address] IMAGING SERVICES Ordering Prov: N/A Interpretation Esophagram barium swallow 02/11/2008 Clinical history: History of gastroesophageal reflux disease, chestpain Barium evaluation of the esophagus demonstrates normal deglutition.The esophagus is normal in caliber and smooth in outline but shows amoderate degree of distal presbyesophageal change in motility with tertiarywaves observed. The esophagus is somewhat slow to clear with airswallowing. However definite reflux was not observed at the time of the exam. Anatomical abnormality of the gastroesophageal junction is not seenand there is no evidence of stricture or obstruction. No extrinsic abnormalities are present. Impression: Moderate distal presbyesophageal change in motility withsome tertiary waves observed and otherwise negative esophageal findings. . Dictated by: JULI CABRERA 02/11/2008 09:20 Electronically signed by: JULI CABRERA 02/11/2008 11:48 Transcribed: 02/11/2008 11:47 AMK us Mark Cevallos MD DIAGNOSTIC IMAGING ORDERABLE S Final Result documented in this encounter Visit Diagnoses Diagnosis Abdominal pain, right upper quadrant documented in this encounter Care Teams Sales And Marketing Associate Relationship Specialty Start Date End Date Mark Cevallos MD PCP - General 11/27/06 12/24/24 NO DME 08/13/18 documented as of this encounter
--- OUTSIDE RECORDS SUMMARY | 2025-02-17 15:58 | XMS_ITS | Encounter Summary ---
Author Organization [facility] Address [address] [place] [address] Care Team Providers Care Spray Gun Operator Name Role Phone Doretha Quiros MD Primary Care Provider [phone] Encounter Details Date Type Department Care Team (Latest Contact Info) Description 01/28/2008 Outpatient Historical HIS [facility] Doretha Morrison MD [facility] [address] Other and Unspecified Hyperlipidemia Social History Tobacco Use Types Packs/Day Years Used Date Smoking Tobacco: Never Assessed Comments Unknown Sex and Gender Information Value Date Recorded Sex Assigned at Not on file Legal Sex Female 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 Gender Identity Not on file Sexual Orientation Not on file documented as of this encounter Plan of Treatment Not on file documented as of this encounter Procedures Procedure Name Priority Date/Time Associated Diagnosis Comments TSH Routine 01/28/2008 8:25 AM CDT HEMOGLOBIN A1C Routine 01/28/2008 8:25 AM CDT LIPID PANEL Routine 01/28/2008 8:25 AM CDT COMPREHENSIVE METABOLIC PANEL Routine 01/28/2008 8:25 AM CDT documented in this encounter Results * (ABNORMAL) LIPID PANEL (01/28/2008 8:25 AM CDT) CHOL/HDL RATIO 3.6 2.0 - 5.0 [facility] HDL 35(L) 40 - 59 mg/dL [facility] CHOLESTEROL 125 100 - 199 mg/dL [facility] TRIGLYCERIDE 90 10 - 149 mg/dL [facility] LDL CALCULATED 72 <=99 mg/dL [facility] LIPID PANEL COMMENT See Below [facility] Comment: The adult ATP and pediatric NCEP classifications for lipids are available on the [facility] Intranet at: [email or web address] Select: Lab Policies and Procedures,Current Select: Lipid Panel Interpretation Blood specimen (specimen) 01/28/2008 8:25 AM CDT 01/28/2008 8:45 AM CDT Narrative [facility] - 01/29/2008 4:53 PM CDT add on blood in lab Doretha Quiros MD CHEMISTRY ORDERABLES Edited [facility] [address] [place], [place] [address] * (ABNORMAL) COMPREHENSIVE METABOLIC PANEL (01/28/2008 8:25 AM CDT) GLUCOSE 112(H) 65 - 99 mg/dL [facility] ALKALINE PHOSPHATASE 57 35 - 104 U/L [facility] CO2 26 22 - 30 mmol/L [facility] BILIRUBIN TOTAL 0.4 0.2 - 1.0 mg/dL [facility] POTASSIUM 3.6 3.5 - 4.9 mmol/L [facility] TOTAL PROTEIN 7.4 6.3 - 8.6 g/dL [facility] CREATININE 0.74 0.51 - 0.95 mg/dL [facility] AST 21 12 - 32 U/L [facility] BUN 23(H) 6 - 20 mg/dL [facility] CALCIUM 8.9 8.4 - 10.2 mg/dL [facility] ALBUMIN 4.4 3.4 - 4.8 g/dL [facility] CHLORIDE 106 96 - 108 mmol/L [facility] ALT 21 0 - 31 U/L [facility] SODIUM 142 135 - 145 mmol/L [facility] GFR, >60 >=60 mL/min/1. 7 sq meter [facility] GFR >60 >=60 mL/min/1. 7 sq meter [facility] Comment: Estimated GFR rate interpretative information for both Americans and non- Americans is available on the [facility] Intranet at: [email or web address] Select: Lab Policies and Procedures Select: Reference Ranges - GFR Blood specimen (specimen) 01/28/2008 8:25 AM CDT 01/28/2008 8:45 AM CDT us Doretha Quiros MD CHEMISTRY ORDERABLES Edited [facility] [address] [place] [address] * HEMOGLOBIN A1C (01/28/2008 8:25 AM CDT) GLUCOSE, MEAN BLOOD 140 mg/dL [facility] HEMOGLOBIN A1C 6.1 4.1 - 6.1 % of Hgb [facility] Blood specimen (specimen) 01/28/2008 8:25 AM CDT 01/28/2008 8:45 AM CDT us Doretha Quiros MD CHEMISTRY ORDERABLES Final R esult Performing Organization Address City/[facility]/ZIP Co de Phone Number [facility] [address] [place] [address] * TSH (01/28/2008 8:25 AM CDT) TSH 2.48 0.27 - 4.20 uU/mL [facility] Blood specimen (specimen) 01/28/2008 8:25 AM CDT 01/28/2008 8:45 AM CDT us Doretha Quiros MD CHEMISTRY ORDERABLES Final R esult [facility] [address] [place] [address] documented in this encounter Visit Diagnoses Diagnosis Other and unspecified hyperlipidemia documented in this encounter Care Teams Spray Gun Operator Relationship Specialty Start Date End Date Doretha Quiros MD PCP - General 11/27/06 12/24/24 NO DME 08/13/18 documented as of this encounter
--- OUTSIDE RECORDS SUMMARY | 2025-02-17 15:58 | XMS_ITS | Encounter Summary ---
Author Organization [facility] Address [address] [place] [address] Care Team Providers Care Public Health Officer Name Role Phone Doretha Quiros MD Primary Care Provider [phone] Encounter Details Date Type Department Care Team (Late st Contact Info) Description 07/06/2007 Outpatient Historical [facility] Internal Medicine Medical [place] A [facility] [address] [address] Doretha Quiros MD [address] [place] [address] [address] [place] [address] Social History Tobacco Use Types Packs/Day Years Used Date Smoking Tobacco: Never Assessed Comments Unknown Sex and Gender Information Value Date Recorded Sex Assigned at Not on file Legal 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 Female 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 SUPERVISOR 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 Gender Identity Not on file Sexual Orientation Not on file documented as of this encounter Last Filed Vital Signs Vital Sign Reading Time Taken Comments Blood Pressure 150/90 07/06/2007 9:45 AM CDT Pulse 64 07/06/2007 9:45 AM CDT Temperature - - Respiratory Rate - - Oxygen Saturation - - Inhaled Oxygen Concentration - - Weight 78.5 kg (173 lb) 07/06/2007 9:45 AM CDT Height 157.5 cm (5' 2 ) 07/06/2007 9:45 AM CDT Body Mass Index 31.64 07/06/2007 9:45 AM CDT documented in this encounter Plan of Treatment Not on file documented as of this encounter Visit Diagnoses Not on filedocumented in this encounter Care Teams Public Health Officer Relationship Specialty Start Date End Date Doretha Quiros MD PCP - General 11/27/06 12/24/24 NO DME 08/13/18 documented as of this encounter
--- OUTSIDE RECORDS SUMMARY | 2025-02-17 15:58 | XMS_ITS | Encounter Summary ---
Author Organization [facility] Address [address] [place] [address] Care Team Providers Care Blocking Machine Operator Second Name Role Phone Doretha Quiros MD Primary Care Provider [phone] Encounter Details Date Type Department Care Team (Late st Contact Info) Description 12/04/2006 Orders Only [facility] Internal Medicine Medical [place] A [facility] [address] [address] Doretha Quiros MD [address] [place] [address] [address] [place] [address] Social History Tobacco Use Types Packs/Day Years Used Date Smoking Tobacco: Never Assessed Comments Unknown Sex and Gender Information Value Date Recorded Sex Assigned at Not on file Legal Sex Female 3:37 AM DUCK 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 MEDICATIONS: Medication list current. CHIEF COMPLAINT Seen for a PAP smear. HISTORY: Here for pap. No problems- just had mammogram. CURRENT PROBLEM LIST: 244.9 HYPOTHYROIDISM 272.4 HYPERLIPIDEMIA 401.9 HYPERTENSION, UNSPECIFIED 462 PHARYNGITIS 571.8 CHRONIC LIVER DISEASE AND CIRRHOSIS 599.0 URINARY TRACT INFECTION 715.00 OSTEOARTHROSIS AND ALLIED DISORDERS 780.52 INSOMNIA 790.21 ABNORMAL FASTING BLOOD GLUCOSE 794.8 ELEVATED LFT V72.31 ROUTINE GYNECOLOGICAL EXAMINATION CURRENT MEDICATION LIST: LISINOPRIL-HYDROCHLOROTHIAZIDE ORAL TABLET 20-12.5 MG, 1 Every Day PIROXICAM ORAL CAPSULE CONVENTIONAL 20 MG, 1 Every Day CURRENT ALLERGY LIST: NKDA ROS: : She is postmenopausal, no postmenopausal bleeding noted. PHYSICAL EXAMINATION: CONSTITUTIONAL: GENERAL APPEARANCE: Healthy appearing patient in no distress. BREAST/CHEST: Breasts without tenderness, discharge or masses. No axillary adenopathy. GENITOURINARY: EXTERNAL/VAGINAL: Normal in appearance with good hair distribution. No vulvar irritation or discharge. Normal clitoris and labia. Mucosa clear without lesions. Pelvic support normal. CERVIX: The cervix is clear, firm and closed. No visible lesions. No abnormal discharge. ADNEXA/PARAMETRIA: No masses, organomegaly or local guarding. ASSESSMENT/PLAN: 244.9-HYPOTHYROIDISM LAB ORDERS: Order number: [id number] Test Ordered: TSH 1720 272.4-HYPERLIPIDEMIA LAB ORDERS: Order number: [id number] Test Ordered: LIPID PANEL 1078 401.9-HYPERTENSION, UNSPECIFIED LAB ORDERS: Order number: [id number] Test Ordered: COMPREHENSIVE METABOLIC PANEL & GFR 1112 790.21-ABNORMAL FASTING BLOOD GLUCOSE LAB ORDERS: Order number: [id number] Test Ordered: HEMOGLOBIN A1C 1814 V72.31-ROUTINE GYNECOLOGICAL EXAMINATION ASSESSMENT: no problems found- will order BMD given family history and see back for check up next month. LAB ORDERS: Order number: [id number] Test Ordered: THINPREP RFX HPV 02577 V76.10-SCREENING FOR CA OF BREAST LAB ORDERS: Order number: [id number] Test Ordered: MAMMOGRAM BI-LATERAL (2 VIEWS) V82.81-SPECIAL SCREENING FOR OTHER CONDITIONS LAB ORDERS: Order number: [id number] Test Ordered: BONE DENSITY (HIP & SPINE) HEALTH MAINTENANCE: LAST PAP DATE: 11/26. LAST MAMMOGRAM DATE: 11/26. RETURN VISIT : Patient instructed to return in 1 month. Electronically Signed by: Doretha Quiros MD on Monday, December 04, 2006 documented in this encounter Plan of Treatment Not on file documented as of this encounter Visit Diagnoses Not on filedocumented in this encounter Care Teams Blocking Machine Operator Second Relationship Specialty Start Date End Date Doretha Quiros MD PCP - General 11/27/06 12/24/24 NO DME 08/13/18 documented as of this encounter
--- OUTSIDE RECORDS SUMMARY | 2025-02-17 15:58 | XMS_ITS | Encounter Summary ---
Author Organization [facility] Address [address] [place] [address] Care Team Providers Care Army Manager Name Role Phone Doretha Quiros MD Primary Care Provider [phone] Encounter Details Date Type Department Care Team (Late st Contact Info) Description 01/29/2008 Orders Only [facility] Internal Medicine Medical [place] A [facility] [address] [place] [phone] Nikos Recinos MD [address] [place] [address] [address] [place] [address] Social History Tobacco Use Types Packs/Day Years Used Date Smoking Tobacco: Never Assessed Comments Unknown Sex and Gender Information Value Date Recorded Sex Assigned at Not on file Legal Sex Female 3:37 AM HOME SERVICE DEMONSTRATOR Gender Identity Not on file Sexual Orientation Not on file documented as of this encounter Plan of Treatment Not on file documented as of this encounter Visit Diagnoses Not on filedocumented in this encounter Care Teams Army Manager Relationship Specialty Start Date End Date Doretha Quiros MD PCP - General 11/27/06 12/24/24 NO DME 08/13/18 documented as of this encounter
--- OUTSIDE RECORDS SUMMARY | 2025-02-17 15:58 | XMS_ITS | Encounter Summary ---
Author Organization [facility] Address [address] [place] [address] Care Team Providers Care Lighting Fixture Installer Name Role Phone Doretha Quiros MD Primary Care Provider [phone] Encounter Details Date Type Department Care Team (Late st Contact Info) Description 02/28/2018 Chart Note [facility] Radiation Therapy [address] [place] [address] [place] [address] [place] [address] Social History Tobacco Use Types Packs/Day Years Used Date Smoking Tobacco: Never Smokeless Tobacco: Never Alcohol Use Standard Drinks/Week Comments No 0 (1 standard drink = 0.6 oz pur e alcohol) Comments No Sex and Gender Information Value Date Recorded Sex Assigned at Not on file Legal Sex Female 3:37 AM BUSINESS CONTINUITY STRATEGY DIRECTOR Gender Identity Not on file Sexual Orientation Not on file Occupation Industry Job Start Date Job End Date Not on file Not on file Not on file Not on file documented as of this encounter Plan of Treatment Not on file documented as of this encounter Visit Diagnoses Not on filedocumented in this encounter Additional Health Concerns Assessment Noted Time PHQ-9 Depression Total Score: 2 01/19/20 18 10:00 AM BUSINESS CONTINUITY STRATEGY DIRECTOR documented as of this encounter Care Teams Lighting Fixture Installer Relationship Specialty Start Date End Date Doretha Quiros MD PCP - General 11/27/06 12/24/24 NO DME 08/13/18 documented as of this encounter
--- OUTSIDE RECORDS SUMMARY | 2025-02-17 15:58 | XMS_ITS | Encounter Summary ---
Author Organization [facility] Address [address] [place] [address] Care Team Providers Care Furnace Combustion Analyst Name Role Phone Mark Cevallos MD Primary Care Provider [phone] Encounter Details Date Type Department Care Team (Latest Contact Info) Description 12/15/2008 Outpatient Historical HIS [facility] Mark Morrison MD [facility] [address] Other Screening Mammogram Social History Tobacco Use Types Packs/Day Years Used Date Smoking Tobacco: Never Alcohol Use Standard Drinks/Week Comments Not Asked 0 (1 standard drink = 0.6 oz pur e alcohol) Comments No Sex and Gender Information Value Date Recorded Sex Assigned at Not on file Legal Sex Female 3:37 AM SPECIALIZED DEVELOPER Gender Identity Not on file Sexual Orientation Not on file documented as of this encounter Plan of Treatment Not on file documented as of this encounter Procedures Procedure Name Priority Date/Time Associated Diagnosis Comments MAMMO SCREEN BILAT W OR WO CAD Routine 12/15/2008 9:00 AM SPECIALIZED DEVELOPER documented in this encounter Results * MAMMO DIGITAL SCREEN BILAT (12/15/2008 9:00 AM SPECIALIZED DEVELOPER) Anatomical Region Laterality Modality Breast Bilateral Other 12/15/2008 9:00 AM SPECIALIZED DEVELOPER Narrative 12/15/2008 9:46 AM SPECIALIZED DEVELOPER [address] [address] Admit Date: 12/15/2008 YESENIA REILLY Sex: F Admit Prov: MARK CEVALLOS Date: 1950 Primary Care Prov: MARK CEVALLOS CMRN: [id number] Room: Carlita N: [address] [place] [address] IMAGING SERVICES Ordering Prov: MARK CEVALLOS Accession Number: [id number] Interpretation DIGITAL SCREENING MAMMOGRAM WITH COMPUTER-ASSISTED DIAGNOSIS Findings: The breasts were imaged with digital mammographic technique. The breasts are almost entirely fat. No significant mass, malignant calcification or architectural distortion is noted. The CAD system does not highlight any suspicious areas. Summary: No mammographic evidence of malignancy. There has been no significant change from prior study of 11/27. Recommendations: Bilateral yearly screening mammogram is recommended. Assessment BIRADS: 1-Negative Recommendation: Normal interval follow-up Dictated by: KIERRA SAWYER Electronically signed by: KIERRA SAWYER 12/15/2008 09:46 Transcribed: 12/15/2008 09:46 CXZ Procedure Note Kierra Sawyer - 12/15/2008 [facility] [address] [place], [place] [address] Admit Date: 12/15/2008 YESENIA REILLY Sex: F Admit Prov: MARK CEVALLOS Date: 1950 Primary Care Prov: MARK CEVALLOS CMRN: [id number] [facility] [address] [place] [address] IMAGING SERVICES Ordering Prov: MARK CEVALLOS Interpretation DIGITAL SCREENING MAMMOGRAM WITH COMPUTER-ASSISTED DIAGNOSIS Findings: The breasts were imaged with digital mammographictechnique. The breasts are almost entirely fat. No significant mass, malignant calcification or architectural distortion is noted. The CAD system does not highlight any suspicious areas. Summary: No mammographic evidence of malignancy. There has been no significant change from prior study of 11/27. Recommendations: Bilateral yearly screening mammogram is recommended. Assessment BIRADS: 1-Negative Recommendation: Normal interval follow-up Dictated by: KIERRA SAWYER Electronically signed by: KIERRA SAWYER 12/15/2008 09:46 Transcribed: 12/15/2008 09:46 CXZ us Mark Cevallos MD MAMMO ORDERABLES Final Resul t documented in this encounter Visit Diagnoses Diagnosis Other screening mammogram documented in this encounter Care Teams Furnace Combustion Analyst Relationship Specialty Start Date End Date Mark Cevallos MD PCP - General 11/27/06 12/24/24 NO DME 08/13/18 documented as of this encounter
--- OUTSIDE RECORDS SUMMARY | 2025-02-17 15:58 | XMS_ITS | Encounter Summary ---
Author Organization [facility] Address [address] [place] [address] Care Team Providers Care Boat Driver Name Role Phone Doretha Quiros MD Primary Care Provider [phone] Encounter Details Date Type Department Care Team (Latest Contact Info) Description 11/27/2006 Outpatient Historical HIS [facility] RUDDY Lu, Ирина Lee MD NO ADDRESS ON FILE Other Screening Mammogram (Primary Dx) Social History Tobacco Use Types Packs/Day Years Used Date Smoking Tobacco: Never Assessed Comments Unknown Sex and Gender Information Value Date Recorded Sex Assigned at Not on file Legal Sex Female 3:37 AM BAND AID MACHINE OPERATOR Gender Identity Not on file Sexual Orientation Not on file documented as of this encounter Plan of Treatment Not on file documented as of this encounter Visit Diagnoses Diagnosis Other screening mammogram- Primary documented in this encounter Care Teams Boat Driver Relationship Specialty Start Date End Date Doretha Quiros MD PCP - General 11/27/06 12/24/24 NO DME 08/13/18 documented as of this encounter
--- OUTSIDE RECORDS SUMMARY | 2025-02-17 15:58 | XMS_ITS | Encounter Summary ---
Author Organization [facility] Address [address] [place] [address] Care Team Providers Care Endocrinology Specialist Name Role Phone Doretha Quiros MD Primary Care Provider [phone] Encounter Details Date Type Department Care Team (Late st Contact Info) Description 01/29/2008 Outpatient Historical [facility] Internal Medicine Medical [place] A [facility] [address] [address] Doretha Quiros MD [address] [place] [address] [address] [place] [address] Social History Tobacco Use Types Packs/Day Years Used Date Smoking Tobacco: Never Assessed Comments Unknown Sex and Gender Information Value Date Recorded Sex Assigned at Not on file Legal Sex Female 3:37 AM CHIEF ORTHOPTIST Gender Identity Not on file Sexual Orientation Not on file documented as of this encounter Plan of Treatment Not on file documented as of this encounter Visit Diagnoses Not on filedocumented in this encounter Care Teams Endocrinology Specialist Relationship Specialty Start Date End Date Doretha Quiros MD PCP - General 11/27/06 12/24/24 NO DME 08/13/18 documented as of this encounter
--- OUTSIDE RECORDS SUMMARY | 2025-02-17 15:58 | XMS_ITS | Encounter Summary ---
Author Organization [facility] Address [address] [place] [address] Care Team Providers Care Felt Machine Mechanic Name Role Phone Doretha Quiros MD Primary Care Provider [phone] Encounter Details Date Type Department Care Team (Late st Contact Info) Description 03/24/2006 Outpatient Historical [facility] Internal Medicine Medical [place] A [facility] [address] [address] Doretha Quiros MD [address] [place] [address] [address] [place] [address] Social History Tobacco Use Types Packs/Day Years Used Date Smoking Tobacco: Never Assessed Comments Unknown Sex and Gender Information Value Date Recorded Sex Assigned at Not on file Legal Sex Female 3:37 AM CONTROLLER MECHANIC Gender Identity Not on file Sexual Orientation Not on file documented as of this encounter Plan of Treatment Not on file documented as of this encounter Visit Diagnoses Not on filedocumented in this encounter Care Teams Felt Machine Mechanic Relationship Specialty Start Date End Date Doretha Quiros MD PCP - General 11/27/06 12/24/24 NO DME 08/13/18 documented as of this encounter
--- OUTSIDE RECORDS SUMMARY | 2025-02-17 15:59 | XMS_ITS | Encounter Summary ---
Author Organization [facility] Address [address] [place] [address] Care Team Providers Care Watch Train Assembler Name Role Phone Doretha Quiros MD Primary Care Provider [phone] Encounter Details Date Type Department Care Team (Late st Contact Info) Description 12/01/2005 Orders Only [facility] Internal Medicine Medical [place] A [facility] [address] [address] Doretha Quiros MD [facility]5 [facility] [address] [place] [address] Social History Tobacco Use Types Packs/Day Years Used Date Smoking Tobacco: Never Assessed Comments Unknown Sex and Gender Information Value Date Recorded Sex Assigned at Not on file Legal Sex Female 3:37 AM JEWELRY CUTTER Gender Identity Not on file Sexual Orientation Not on file documented as of this encounter Progress Notes * Doretha Quiros MD - 08/28/2008 11:14 AM CDT WEIGHT: 200lbs BLOOD PRESSURE: 140/78 Left Arm Sitting TEMPERATURE: 97.8??f Oral PULSE: 72 Left Radial, Regular LAST EJECTION FRACTION VALUE: normal ( 08/22 stress echo) NURSE NAME: Sue Jose A ALLERGIES: No known drug allergies. MEDICATIONS: RN/MA reviewed medications. CHIEF COMPLAINT BILAT ANKLE/LEG EDEMA BP UP AND DOWN HISTORY: HISTORY: 401.9-HYPERTENSION, UNSPECIFIED The blood pressure readings taken outside the office since the lastvisit are as follows: the systolic range has been 160's to 120's. The patient has pedal edema. HISTORY OF PRESENT ILLNESS: notices lexi LE edema last few days. no other symptoms. Denies excess salt but has been drinking more water. Had mammo and pap. Mammo abnormal and u/s results inconclusive. Need breast bx CURRENT PROBLEM LIST: 244.9 HYPOTHYROIDISM 272.4 HYPERLIPIDEMIA 401.9 HYPERTENSION, UNSPECIFIED 599.0 URINARY TRACT INFECTION 715.00 OSTEOARTHROSIS AND ALLIED DISORDERS 790.21 ABNORMAL FASTING BLOOD GLUCOSE CURRENT MEDICATION LIST: HYDROCHLOROTHIAZIDE ORAL CAPSULE CONVENTIONAL 12.5 MG, 1 Every Day LIPITOR ORAL TABLET 20 MG, 1 Every Day PROCARDIA XL ORAL TABLET 24 HR 30 MG, 1qd NAPROXEN ORAL TABLET 500 MG, 1 Two Times A Day, As Needed CURRENT ALLERGY LIST: NKDA ROS: GENERAL: Normal activity and energy level, no change in appetite. No major weight gain or loss. No malaise, chills, fever, diaphoresis. ENT: SNORES. CARDIAC: No chest discomfort noted, EDEMA NOTED. RESPIRATORY: No dyspnea, cough, hemoptysis or wheezing. : No frequency, urgency, hematuria or dysuria. GI: HAS ABDOMINAL PAIN WHICH IS LOCATED IN THE RIGHT UPPER QUADRANT, HAS CHRONIC ABDOMINAL PAIN, nochange in bowel movements, no heartburn. PSYCHIATRIC: No depressive symptoms, AWAKENS IN THE MIDDLE OF THE NIGHT. FAMILY HISTORY: GENERAL FAMILY ILLNESS: No history of ischemic heart disease. SOCIAL HISTORY: TOBACCO USE: Has no significant smoking history. ALCOHOL: Does not give any significant history of alcohol usage. PHYSICAL EXAMINATION: CONSTITUTIONAL: GENERAL APPEARANCE: Healthy appearing patient in no distress. NECK/THYROID: Trachea midline. No thyroid enlargement, tenderness, or mass. No supraclavicular or cervical adenopathy. RESPIRATORY: Clear to auscultation and percussion. Normal respiratory effort. CARDIOVASCULAR: CARDIAC: Regular rhythm. No murmurs, rubs, or gallops. ARTERIAL: Aortic pulses of normal amplitude with no bruits. EDEMA/VARICOSITIES OF EXTREMITIES: TRACE EDEMA BILATERALLY. GASTROINTESTINAL: ABDOMEN: Soft, non-tender, without masses. Bowel sounds active. LIVER/SPLEEN/KIDNEY: MILD LIVER TENDERNESS. PSYCHIATRIC: Judgment appropriate. Oriented. Normal memory. Mood and affect appropriate. ASSESSMENT/PLAN: 244.9-HYPOTHYROIDISM TSH up and down but w/ symptoms LAB ORDERS: Order number: [id number] Test Ordered: TSH W/REFLEX TO FT4 53978 Order number: [id number] Test Ordered: THYROID PEROXIDASE ANTIBODIES 5081 401.9-HYPERTENSION, UNSPECIFIED +edema , ? From procardia ASSESSMENT: The blood pressure has worsened. Will increase medication dosage, current medication iscausing side effects, will change medication. Will check laboratory. MEDICATIONS: HYDROCHLOROTHIAZIDE ORAL CAPSULE CONVENTIONAL 12.5 MG, 1 Every Day, 90 Dispensed, 3 Fills, 90 Duration/Days Supply, status: DISCONTINUED, 12/01/2005. PROCARDIA XL ORAL TABLET 24 HR 30 MG, 1qd, 90 Dispensed, 3 Fills, 90 Duration/Days Supply, status: DISCONTINUED, 12/01/2005. LISINOPRIL-HYDROCHLOROTHIAZIDE ORAL TABLET 20-12.5 MG, 1 Every Day, 90 Dispensed, 3 Fills, status: NEW PRESCRIPTION, 12/01/2005. LAB ORDERS: 794.8-ELEVATED LFT thought 2/2 fatty liver by bx- LAB ORDERS: Order number: [id number] Test Ordered: COMPREHENSIVE METABOLIC PANEL 94508 Order number: [id number] Test Ordered: FERRITIN 457 780.52-INSOMNIA some signs of MARY ANN LAB ORDERS: Order number: [id number] Test Ordered: SLEEP STUDY SPECIALTY REFERRAL: GENERAL SURGERY Dr. Ирина Lu ph: [phone]. HEALTH MAINTENANCE: LAST PAP DATE: 09.24. LAST MAMMOGRAM DATE: 09.24. LAST DATE COLONOSCOPY: 10.21. ( 10y) Electronically Signed by: Doretha Quiros MD on November documented in this encounter Plan of Treatment Not on file documented as of this encounter Visit Diagnoses Not on filedocumented in this encounter Care Teams Watch Train Assembler Relationship Specialty Start Date End Date Doretha Quiros MD PCP - General 11/27/06 12/24/24 NO DME 08/13/18 documented as of this encounter
--- OUTSIDE RECORDS SUMMARY | 2025-02-17 15:59 | XMS_ITS | Encounter Summary ---
Author Organization [facility] Address [address] [place] [address] Care Team Providers Care Quartz Miner Name Role Phone Doretha Quiros MD Primary Care Provider [phone] Encounter Details Date Type Department Care Team (Late st Contact Info) Description 03/24/2006 Outpatient Historical [facility] Internal Medicine Medical [place] A [facility] [address] [address] Doretha Quiros MD [address] [place] [address] [address] [place] [address] Social History Tobacco Use Types Packs/Day Years Used Date Smoking Tobacco: Never Assessed Comments Unknown Sex and Gender Information Value Date Recorded Sex Assigned at Not on file Legal Sex Female 3:37 AM TREKKING GUIDE Gender Identity Not on file Sexual Orientation Not on file documented as of this encounter Plan of Treatment Not on file documented as of this encounter Visit Diagnoses Not on filedocumented in this encounter Care Teams Quartz Miner Relationship Specialty Start Date End Date Doretha Quiros MD PCP - General 11/27/06 12/24/24 NO DME 08/13/18 documented as of this encounter
--- OUTSIDE RECORDS SUMMARY | 2025-02-17 16:01 | XMS_ITS ---
Author Organization [facility] Address [address] [place] [address] Phone Care Team Providers Care Linotypist Name Role Phone Unavailable Primary Care Provider Unavailabl e Active Problems Patient Care Coordination No te Formatting of this note migh t be different from the original. Primary Care: Doretha Quiros MD Referring Provider: No referring provider defined for this encounter. Other: Dr. Cayla Sarabia MD Ophthalmology Dr Loyola PMR- Dr Canchola Problem Noted Date Diagnosed Date Complication of surgical procedure 05/23/2022 Type 2 diabetes mellitus wit h diabetic peripheral angiopathy without gangrene, without long-term current use of insulin 02/18/2021 Overview (08/16/2021): Based on [facility] Home viist results 07/2021 Moderate episode of recurrent major depressive d isorder 10/20/2020 Age-related osteoporosis wit h current pathological fracture with routine healing 01/30/2020 Overview (03/16/2023): 02/09- fragility fracture spine on Arimidex till 05/12 Spine: +1.0 Left Femoral Neck: -1.1 Right Femoral Neck: -1.1 FRAX: Major: 9%; Hip: 1.1% Mixed conductive and sensori neural hearing loss of both ears 02/22/2019 Primary osteoarthritis of left knee 08/13/2018 Invasive ductal carcinoma of breast, stage 1, le ft 02/22/2018 Overview (03/01/2018): PATHOLOGY: Date: 02/08/18 bx; 02/19/18 lump with SLN Breast: Left Cell type: IDC, 1.1 cm ER: (+) 88 NH: (+) 06/27 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 Allergic rhinitis 09/06/2010 Glaucoma of both eyes 01/29/2008 Primary insomnia 12/01/2005 Essential hypertension 08/19/2005 Generalized osteoarthrosis, unspecified site Hypercholesteremia 08/19/2005 Current Treatment and Therapy Plans No current plan information found. Past Treatment and Therapy Plans No past plan information found. Lifetime Dose Tracking * Chemical Lifetime Dose Automatic Entry Manual Entr y Effective Dose 3.2 mSv 3.2 mSv 0 mSv Total DLP 1,002 DLP 1,002 DLP 0 DLP CTDIvol Max 150 mGy 150 mGy 0 mGy CTDIvol Min 150 mGy 150 mGy 0 mGy Resolved Problems Problem Noted Date Diagnosed Date Resolved Date Sacroiliitis, not elsewhere classified 03/13/2020 05/24/2022 Peptic ulcer 06/25/2008 11/07/2012 Abdominal pain, right upper quadrant 01/29/2008 01/08/2010 Synovial cyst, unspecified 09/06/2007 1 01/08/2012 Cellulitis and abscess of up per arm and forearm 07/06/2007 09/09/2008 Rash and other nonspecific skin eruption 01/29/2007 09/09/2008 Routine gynecological examination 12/04/2006 01/08/2010 Breast screening, unspecified 12/04/2006 01/08/2010 Special screening for osteoporosis 12/04/2006 01/08/2010 Acute pharyngitis 03/24/2006 09/09/2008 Nonspecific abnormal results of liver function study 12/01/2005 08/03/2011 CHRONIC LIVER DIS NEC 12/01/20052011 HYPOTHYROIDISM NOS 08/30/2005 2 Urinary tract infection, site not specified 08/19/2005 01/08/2010 Prediabetes 08/19/2005 10/20/2020
--- OUTSIDE RECORDS SUMMARY | 2025-02-17 16:01 | XMS_ITS | Encounter Summary ---
Author Organization [facility] Address [address] [place] [address] Care Team Providers Care Filing Machine Operator Name Role Phone Doretha Quiros MD Primary Care Provider [phone] Encounter Details Date Type Department Care Team (Late st Contact Info) Description 08/11/2003 Outpatient Historical [facility] Internal Medicine Medical [place] A [facility] [address] [address] Jace Greenwood MD [address] [place], [place] [id number] Social History Tobacco Use Types Packs/Day Years Used Date Smoking Tobacco: Never Assessed Comments Unknown Sex and Gender Information Value Date Recorded Sex Assigned at Not on file 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
--- OUTSIDE RECORDS SUMMARY | 2025-02-17 16:01 | XMS_ITS | Encounter Summary ---
Author Organization [facility] Address 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
--- OUTSIDE RECORDS SUMMARY | 2025-02-17 16:01 | XMS_ITS | Encounter Summary ---
Author Organization [facility] Address 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
--- OUTSIDE RECORDS SUMMARY | 2025-02-17 16:01 | XMS_ITS | Encounter Summary ---
Author Organization [facility] [employer] [facility] Address [address] [place] [address] Care Team Providers Care Retail Selling Specialist Name Role Phone Doretha Quiros MD Primary Care Provider [phone] Encounter Details Date Type Department Care Team (Latest Contact Info) Description 12/20/2002 Outpatient Historical [facility] CARD SLOT SHIFT SUPERVISOREleuterio Rogel MD Department of Radiology [address] [place] [address] Nic Cool MD [address] [place] [address] [address] [place] [address] CHRONIC LIVER DIS NEC (Primary Dx) Social History Tobacco Use Types Packs/Day Years Used Date Smoking Tobacco: Never Assessed Comments Unknown Sex and Gender Information Value Date Recorded Sex Assigned at Not on file Legal 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
--- OUTSIDE RECORDS SUMMARY | 2025-02-17 16:01 | XMS_ITS | Encounter Summary ---
Author Organization [facility] Address 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
--- OUTSIDE RECORDS SUMMARY | 2025-02-17 16:01 | XMS_ITS | Encounter Summary ---
Author Organization [facility] Address [address] [place] [address] Care Team Providers Care Retoucher Photoengraving Name Role Phone Doretha Quiros MD Primary Care Provider [phone] Encounter Details Date Type Department Care Team (Late st Contact Info) Description 10/10/2003 Outpatient Historical [facility] Internal Medicine Medical [place] A [facility] [address] [address] Jace Greenwood MD [address] [place], [place] [id number] Social History Tobacco Use Types Packs/Day Years Used Date Smoking Tobacco: Never Assessed Comments Unknown Sex and Gender Information Value Date Recorded Sex Assigned at Not on file Legal 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
--- OUTSIDE RECORDS SUMMARY | 2025-02-17 16:01 | XMS_ITS | Encounter Summary ---
Author Organization [facility] Address [address] [place] [address] Care Team Providers Care Riveting Machine Operator Tape Control Name Role Phone Doretha Quiros MD Primary Care Provider [phone] Encounter Details Date Type Department Care Team (Late st Contact Info) Description 08/19/2005 Outpatient Historical [facility] Internal Medicine Medical [place] A [facility] [address] [address] Doretha Quiros MD [address] [place] [address] [address] [place] [address] Social History Tobacco Use Types Packs/Day Years Used Date Smoking Tobacco: Never Assessed Comments Unknown Sex and Gender Information Value Date Recorded Sex Assigned at Not on file 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
--- OUTSIDE RECORDS SUMMARY | 2025-02-17 16:01 | XMS_ITS | Data Portability ---
Author Organization [facility], Main Office Address [address] [place] [address] Care Team Providers Care Electric Melt Operator Name Role Phone MARK CEVALLOS Primary Care Provider Unavailabl e MARK CEVALLOS Referring Provider Unavailable Assessment Encounter Date Assessment Date Assessment LastModified by Organization Details LastModified Time 04/28/2023 04/28/2023 The impression: Patient has moderate medial compartment osteoarthritis of her right knee. She has had 3 prior arthroscopic meniscal debridements. 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 I showed her the x-rays and explained the findings to her. She states she is asymptomatic and therefore observation is appropriate. She does not feel that any treatment is necessary at this point. I am happy to see her back if she has further problems. 30 minutes were spent in total care this patient with more than half of this time spent in zizu-no-caay care. [email or web address] Not available 05/21/2023 10:25:26 05/30/2023 05/30/2023 BLE varicocities . Has tried compression stockings for years, aching pain worsening in BLEs, L > R. Will order venous duplex US bilaterally and rx new compression socks. f/u here after US. Not available 05/30/2023 11:44:50 06/27/2023 06/27/2023 Duplex showed no reflux, but R SFJ diameter is 0.6cm and L SFJ diameter of 0.8 cm. Continuing to have aching lower extremities, L > R despite compression stockings. Patient wishes to undergo ambulatory phlebectomies. Not available 06/27/2023 11:36:06 Plan of Treatment Reminders Order Date Submit Date Provider Last Modified By Organization Details Last Modified Time Details Appointments None record ed. Lab None record ed. Referral None record ed. Procedures None record ed. Surgeries None record ed. Imaging None record ed. Medication Orders None record ed. Patient TargetsNo targets recorded. Patient InstructionsNo instructions recorded. Reason for Referral None Reported. Results Created Date Observation Date Name Description Value Unit Range Abnormal Flag Note LastModifiedBy Organization Detail LastModifiedTime 01/20/20 22 10/08/2021 zahraa tavarez am No observ ation record ed. [id number] Not Available 01/18/2023 22:05:49 04/28/20 23 01/16/2023 XR, knee No observ ation record ed. [email or web address] Not Available 2022 15:31:18 Result Notes None recorded. Problems Name Problem SNOMED Code Status Onset Date Resolution Date Notes Provider Name and Address Organization Details Recorded Time Pain of right knee joint 33677320652396 0 Active 2022 LELE Dunaway null, [place] [employer] [facility] 3 11:38:52 Pain due to varicose veins of lower extremity 156862472 Active 2022 Omid blanc MD [address] [facility], [address], [address], [facility] 3 13:57:40 Varicose veins of lower extremity 34869243 Active 2022 Omid blanc MD [address] [facility], [address], [address], [facility] 3 14:02:41 Problem Notes None recorded. Procedures Surgical History Date Name Laterality Status Provider Name and Address Organization Details Recorded Time Breast Surgery completed Not Available [facility] 01/18/2023 22:04:44 Neck Surgeries completed Not Available [facility] 01/18/2023 22:04:44 Knee Surgery completed Not Available [facility] 01/18/2023 22:04:44 operation on retina completed Not Available [facility] 01/18/2023 22:04:44 procedure on skin completed Not Available [facility] 01/18/2023 22:04:44 Knee Replacement completed Not Available [facility] 01/18/2023 22:04:44 Knee Surgery completed Not Available [facility] 22:04:44 Imaging Results Imaging Date Name Status LastModified by Organization Details LastModified Time 10/08/2021 electrocardiogram completed [id number] Information not available 01/18/2023 22:05:49 01/16/2023 XR, knee completed [email or web address] Information no t available 04/28/2023 15:31:18 Procedure Notes None recorded. Medical Equipment None Reported. Allergies No known drug allergies Medications Name Sig Start Date Stop Date Status Note LastModified by Organization Details LastModified Time latanoprost 0.005 % eye drops INSTILL 1 DROP IN BOTH EYES EVERY DAY AT BEDTIME active Not Available Not Available No t Available atorvastati n 40 mg tablet TAKE 1 TABLET BY MOUTH DAILY active Not Available Not Available No t Available anastrozole 1 mg tablet TAKE 1 TABLET BY MOUTH EVERY DAY active Not Available Not Available No t Available lisinopril 20 mg-hydrochl orothiazide 12.5 mg tablet Take 1 tablet every day by oral route. 2020 active Not Available Not Available Not Avai lable metoprolol succinate ER 100 mg tablet,exte nded release 24 hr 04/28 completed Not Available Not Available Not Available sertraline 100 mg tablet active Not Available Not Available Not Available hydrocodone 10 mg-acetamin ophen 325 mg tablet TAKE 1 TABLET BY MOUTH FOUR TIMES DAILY NEEDED active Not Available Not Available No t Available tramadol 50 mg tablet TAKE 2 TABLETS BY MOUTH THREE TIMES DAILY NEEDED active Not Available Not Available No t Available trazodone 100 mg tablet Take 1 tablet twice a day by oral route. active Not Available Not Available No t Available Kenalog 10 mg/mL suspension for injection In office injection administe red by the provider 04/[address] [facility]: 0003- [phone]- [phone] Not Available Not Available Not Available amlodipine 10 mg tablet TAKE 1 TABLET BY MOUTH DAILY active Not Available Not Available No t Available cephalexin 500 mg capsule TAKE 1 CAPSULE BY MOUTH EVERY 6 HOURS 04/28 completed Not Available Not Available Not Available pantoprazol e 40 mg tablet,raquel yed release Take 1 tablet every day by oral route. active Not Available Not Available No t Available omeprazole 20 mg capsule,del ayed release 07/22 completed Not Available Not Available Not Available escitalopra m 10 mg tablet 04/28 completed Not Available Not Available Not Available duloxetine 30 mg capsule,del ayed release TAKE ONE CAPSULE BY MOUTH DAILY. TAKE WHILE STARTING SERTRALIN E 04/28 completed Not Available Not Available Not Available duloxetine 60 mg capsule,del ayed release 04/28 completed Not Available Not Available Not Available trazodone 50 mg once daily 10/28 completed Not Available Not Available Not Available lidocaine (PF) 10 mg/mL (1 %) injection solution In office injection administe red by the provider 04/[address] [facility]: [phone]- [phone]- [phone] Not Available Not Available Not Available amlodipine besylate (bulk) 25 mg once daily 07/22 completed Not Available Not Available Not Available metoprolol suc 100 mg-hydrochl orothiazide 12.5 mg tablet,ext. rel 24 hr Take 1 tablet every day by oral route. 07/22 completed Not Available Not Available Not Available Calci-Max 600 mg-1 mg-500 unit-30 unit capsule Take by oral route. 04/28 completed Not Available Not Available Not Available omeprazole 20 mg delayed release,dis integrating tablet Take by oral route. 07/22 completed Not Available Not Available Not Available Vitals Date Recorded Body height Provider Name an d Address Organization Details Last Updated DateTime 10/28/2021 152.4 cm Not Available [facility] 3 22:05:01 Date Recorded Body height Provider Name an d Address Organization Details Last Updated DateTime 11/18/2021 152.4 cm Not Available [facility] 3 22:05:01 Date Recorded Body height Body mass index (BMI) Body weight Provider Name and Address Organization Details Last Updated DateTime 04/28/2023 154.94 cm 24.2 kg/m2 77371.82 g LELE Dunaway [place] [employer] [facility] 04/28/2023 12:03:16 Date Recorded Body height Body mass index (BMI) Body weight Heart rate Body temperature Respiratory rate Oxygen saturation Oxygen saturation in Arterial blood by Pulse oximetry Systolic blood pressure Diastolic blood pressure Provider Name and Address Organization Details Last Updated DateTime 3 154.94 cm 24.2 kg/m2 66773.8 2 g 100 /min 97.9 [degF] 14 /min 97 % 97 % 130 mm[Hg] 78 mm[Hg] Cindy Bishop [facility] Rewarding Return [facility] 3 11:11:49 Date Recorded Body height Body mass index (BMI) Body weight Body temperature Respiratory rate Oxygen saturation Oxygen saturation in Arterial blood by Pulse oximetry Systolic blood pressure Diastolic blood pressure Provider Name and Address Organization Details Last Updated DateTime 3 154.94 cm 24.2 kg/m2 47073.8 2 g 98.6 [degF] 14 /min 98 % 98 % 130 mm[Hg] 76 mm[Hg] Jenny Jackson [place] - [facility] [employer] Return [facility] 3 10:27:23 Social History Question Answer Notes LastModified by Kwestr ion Details LastModified Time Tobacco Smoking Status Never Smoker Not Available [facility] 01/18/2023 22:04:43 What Is Your Level Of Alcohol Consumption? None [id number] Information not available 01/18/2023 Sex: Unknown Functional Status None recorded. Mental Status None recorded. Family History Relationship Description Onset Age of this Age Resolved Age Notes LastModified by Organization Details LastModified Time Unspecified Relation Family history of malignant neoplasm [id number] Not available 01/18/2023 22:04:45 Unspecified Relation Hypertensive disorder [id number] Not available 01/18/2023 22:04:45 Medical History Condition Response BLINDNESS N KIDNEY STONES N MRSA N CARPAL TUNNEL SYNDROME N LUNG DISEASE/DISORDER N HISTORY OF DRUG ABUSE N RADIATION / CHEMOTHERAPY N COPD N SPORTS INJURY N ANKLE PAIN N BLOOD DISEASES N PAST SPINAL SURGERY N SCHIZOPHRENIA N SHINGLES N SHOULDER PAIN N DEPRESSION (INCLUDING POST ) N BOWEL PROBLEMS N FAILED BACK SYNDROME N STROKE/TIA N ULCERS N OTHER MODALITIES N KNEE PAIN N BENIGN PROSTATIC HYPERPLASIA N OBESITY N GERD/NAUSEA N ANEURYSM N URINARY/BLADDER/KIDNEY PROBLEMS N CORONARY ARTERY DISEASE (CAD) N Do you have Advance directive? N ADDICTION CONCERNS N USE OF BLOOD THINNERS N SKIN PROBLEMS N EMPHYSEMA N MUSCLE,JOINT OR BONE PROBLEMS N DVT N STOMACH ULCERS N BLOOD CLOTS N PAST HISTORY OF VEHICULAR ACCIDENT N USE OF NSAIDS N CONCUSSION OR SPINAL TRAUMA N ARTERIAL INSUFFICIENCY N NEUROPATHY N AIDS/HIV N FRACTURES N HYPERTENSION Y ELBOW PAIN N TOURETTE'S N Metal allergy N ANXIETY DISORDER N BLOOD TRANSFUSION N ANEMIA/BLOOD DISORDER N BIPOLAR DISORDER N BRONCHITIS N OSTEOARTHRITIS N TUBERCULOSIS N FOOT PROBLEM N HEART VALVE DISORDERS N SLEEP APNEA N SOFT TISSUE INJURY N BACK INJECTIONS N ALLERGIES/HAYFEVER N INFECTIOUS DISEASE N HEART ARRHYTHMIA N INSOMNIA N ESRD N PAST INTERVENTIONAL PAIN MANAGEMENT HIST ORY N RHEUMATOID ARTHRITIS N PAST MEDICATION HISTORY N HIGH CHOLESTEROL / HYPERLIPIDEMIA Y PVD N EDEMA N CHRONIC PAIN SYNDROME N CAROTID BLOCKAGE N BACK / NECK PROBLEMS N HAVE YOU BEEN HOSPITALIZED OR SEEN IN [facility] ER IN THE PAST YEAR ? N BURSITIS N HERNIATED DISC N DIALYSIS N POLYCYSTIC OVARIES N FIBROMYALGIA N OSTEOPOROSIS N ARTHRITIS Y RESPIRATORY PROBLEMS N PAST HISTORY OF FALL N NO SIGNIFICANT PAST MEDICAL HISTORY N PERIPHERAL NEUROPATHY N DIABETES, TYPE N VON WILLIBRAND'S DISEASE N HEARTBURN / REFLUX N POST LAMINECTOMY SYNDROME N HEPATITIS / LIVER DISEASE N GOUT N SLEEP DISORDER N ALZHEIMER'S DISEASE N HERPES N SEIZURES/EPILEPSY N HEADACHES/MIGRAINES N VASCULAR DISEASE N HIP PAIN N Blood Disorder N DIZZINESS N HEAD TRAUMA OR INJURY N HEART DISEASE/HEART PROBLEMS N MULTIPLE SCLEROSIS N NEUROPSYCHOLOGICAL N CARDIAC ARRHYTHMIA N CANCER: SPECIFY Y ANESTHESIA COMPLICATIONS N ATRIAL FIBRILLATION N AUTOIMMUNE DISEASE N Gynecological HistoryNo gynecological history recorded. Obstetrics History GPAL:G 0 P 0 0 0 0 Past Encounters Encounter ID Performer Location Encounter Start Date Encounter Closed Date Diagnosis/Indication Diagnosis SNOMED-CT Code Diagnosis ICD10 Code Diagnosis Note [id number] [facility] [address] [address] 07/22/2021 00:00:00 07/22/2021 11:03:36 [id number] [facility] [address] [address] 08/19/2021 00:00:00 08/29/2021 20:46:49 [id number] [facility] [address] [address] 10/28/2021 00:00:00 11/28/2021 18:55:28 [id number] [facility] [address] [address] 11/18/2021 00:00:00 11/18/2021 14:22:39 [id number] Felipe Cantrell MD [facility] Ortho Rajendra Rai [address] [place] [address] 04/28/2023 11:11:22 05/22/2023 09:28:17 Pain of right knee joint 4037272071 78138 M25.561 [id number] Omid crawford MD [facility] General Surgery [address] [facility] [address] [place] [address] 05/30/2023 10:55:04 05/30/2023 13:41:17 Pain due to varicose veins of lower extremity 176813580 I83.813 Bilateral Legs [id number] Omid crawford MD [facility] General Surgery [address] [address] 06/27/2023 10:25:46 06/28/2023 10:34:08 Varicose veins of lower extremity 38432744 I83.893 Bilat Legs Health Concerns Section Related Observation LastModified by Organization Detai ls LastModified Time None Recorded Concern Status LastModified by Organization Details LastModified Time None Recorded Advance Directives Directive None Recorded Payers Encounter Date Sequence Insurance Name Policy Number Policy Hansen Covered Member ID Hansen Member ID Guarantor Name 04/28/2023 1 [facility] (MEDICARE REPLACEMENT/A DVANTAGE - HMO) [id number] Daniela E Yosefee [id number] Daniela Ozjuan 04/28/2023 2 [place]ARE OR MEDICARE REPLACEMENT PRIMARY) Daniela Ozjuan [id number] Daniela Ozee 05/30/2023 1 [facility] (MEDICARE REPLACEMENT/A DVANTAGE - HMO) [id number] Daniela E Ozee [id number] Daniela Ozee 05/30/2023 2 [place] OR MEDICARE REPLACEMENT PRIMARY) Daniela Ozjuan [id number] Daniela Ozee 06/27/2023 1 [facility] (MEDICARE REPLACEMENT/A DVANTAGE - HMO) [id number] Daniela E Ozee [id number] Daniela Wells 06/27/2023 2 [place]ARE OR MEDICARE REPLACEMENT PRIMARY) Daniela Wells [id number] Dnaiela Wells Notes Date Note Type Note Provider Name and Address Organization Details Recorded Time 04/28/2023 text/html Patient returns at this time for evaluation of her right knee. We performed an arthroscopic debridement of a synovial curtain getting caught in her left knee replacement back in July 2021 and she did well with that. She still has mild symptoms of soreness in the left knee is not experiencing the patellar clunk problem anymore. She has been seeing Dr. garcía to put he for pain management. She had x-rays both knees on 01/16/2023 showed left total knee arthroplasty without radiographic complication and showed right knee medial and patellofemoral marginal osteophytes with moderate joint space narrowing of the medial compartment as well as an ovoid Ossified mass approximately 9 x 12 mm projecting in the region of the right infrapatellar fat pad region likely anterior to the anterior cruciate ligament insertion and this location might block full extension. It has the appearance heterotopic ossification with corticated margin. The radiologist noted in his report that orthopedic surgery consultation was recommended on a nonemergent basis and that is why she is here today. However, she is having no symptoms in her right knee this time. She filled out the questionnaire and said no pain. She is only here because of the concern by the radiologist. She does have soreness in her hips and lower back and left knee. She gets injections in her neck and back for pain management With Dr. Dove. She does report that she has had 3 prior arthroscopic surgeries in the right knee for meniscus trimming in the past. Felipe Cantrell MD [address], [place] [address], [place], [address], [facility] 05/21/2023 10:25:41 05/30/2023 text/html Presents to clin ic to discuss bilateral lower leg aching. States she thinks she has varicose veins, notices bulging veins on BLEs. L > R. Wears compression stockings without relief. Omid Arroyo MD [address], [facility] [address], [place], [address], [facility] 05/30/2023 13:57:59 06/27/2023 text/html Presents to clin ic to discuss bilateral lower leg aching. States she thinks she has varicose veins, notices bulging veins on BLEs. L > R. Wears compression stockings without relief. No reflux on US, but she does have diameter of 0.6 cm of R SFJ and 0.8 cm of L SFJ Omid Arroyo MD [address] [place] [address], [place], [address], [place] [facility] 06/27/2023 14:02:57 OBGyn Episode No OBEpisode recorded.
--- OUTSIDE RECORDS SUMMARY | 2025-02-17 16:01 | XMS_ITS | Encounter Summary ---
Author Organization [employer] Address 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
--- OUTSIDE RECORDS SUMMARY | 2025-02-17 16:01 | XMS_ITS | Encounter Summary ---
Author Organization [facility] Address 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
--- OUTSIDE RECORDS SUMMARY | 2025-02-17 16:01 | XMS_ITS | Encounter Summary ---
Author Organization [facility] Address 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
--- OUTSIDE RECORDS SUMMARY | 2025-02-17 16:01 | XMS_ITS | Encounter Summary ---
Author Organization [facility] Address [address] [place] [address] Care Team Providers Care Tube Puller Name Role Phone Doretha Quiros MD Primary Care Provider [phone] Encounter Details Date Type Department Care Team (Late st Contact Info) Description 08/26/2002 Outpatient Historical [facility] Internal Medicine Medical [place] A [address] [facility] [address] [address] Jace Greenwood MD [address] [place], [place] [id number] Social History Tobacco Use Types Packs/Day Years Used Date Smoking Tobacco: Never Assessed Comments Unknown Sex and Gender Information Value Date Recorded Sex Assigned at Not on file 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
--- OUTSIDE RECORDS SUMMARY | 2025-02-17 16:01 | XMS_ITS | Encounter Summary ---
Author Organization [facility] Address 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
--- OUTSIDE RECORDS SUMMARY | 2025-02-17 16:01 | XMS_ITS | Encounter Summary ---
Author Organization [facility] Address [address] [place] [address] Care Team Providers Care Bid Manager Name Role Phone Doretha Quiros MD Primary Care Provider [phone] Encounter Details Date Type Department Care Team (Late st Contact Info) Description 03/10/2003 Outpatient Historical [facility] Internal Medicine Medical [place] A 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
--- OUTSIDE RECORDS SUMMARY | 2025-02-17 16:01 | XMS_ITS | Encounter Summary ---
Author Organization [employer] Address [address] [place] [address] Care Team Providers Care Insulation Professional Name Role Phone Doretha Quiros MD Primary Care Provider [phone] Encounter Details Date Type Department Care Team (Late st Contact Info) Description 08/19/2003 Outpatient Historical [facility] 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
--- OUTSIDE RECORDS SUMMARY | 2025-02-17 16:01 | XMS_ITS | Encounter Summary ---
Author Organization [facility] Address 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
--- OUTSIDE RECORDS SUMMARY | 2025-02-17 16:01 | XMS_ITS | Encounter Summary ---
Author Organization [facility] Address 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
--- OUTSIDE RECORDS SUMMARY | 2025-02-17 16:01 | XMS_ITS | Encounter Summary ---
Author Organization [facility] Address [address] [place] [address] Care Team Providers Care Surveillance Investigator Name Role Phone Doretha Quiros MD Primary Care Provider [phone] Encounter Details Date Type Department Care Team (Late st Contact Info) Description 04/30/2003 Outpatient Historical [facility] Internal Medicine Medical [place] [address] [address] Jace Greenwood MD [address] [place], [place] [id number] Social History Tobacco Use Types Packs/Day Years Used Date Smoking Tobacco: Never Assessed Comments Unknown Sex and Gender Information Value Date Recorded Sex Assigned at Not on file 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
--- OUTSIDE RECORDS SUMMARY | 2025-02-17 16:01 | XMS_ITS | Encounter Summary ---
Author Organization [facility] Address [address] [place] [address] Care Team Providers Care Oxyhydrogen Welder Name Role Phone Doretha Quiros MD Primary Care Provider [phone] Encounter Details Date Type Department Care Team (Late st Contact Info) Description 12/01/2005 Outpatient Historical [facility] Internal Medicine Medical [place] A [facility] [address] [address] Doretha Quiros MD [facility] [facility] [address] [place] [address] Social History Tobacco Use Types Packs/Day Years Used Date Smoking Tobacco: Never Assessed Comments Unknown Sex and Gender Information Value Date Recorded Sex Assigned at Not on file Legal 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 Gender Identity Not on file Sexual Orientation Not on file documented as of this encounter Last Filed Vital Signs Vital Sign Reading Time Taken Comments Blood Pressure 140/78 12/01/2005 9:00 AM SCROLL MACHINE OPERATOR Pulse 72 12/01/2005 9:00 AM SCROLL MACHINE OPERATOR Temperature 36.6 C (97.8 F) 12/01/2005 9:00 AM SCROLL MACHINE OPERATOR Respiratory Rate - - Oxygen Saturation - - Inhaled Oxygen Concentration - - Weight 90.7 kg (200 lb) 12/01/2005 9:00 AM SCROLL MACHINE OPERATOR Height - - Body Mass Index - - documented in this encounter Plan of Treatment Not on file documented as of this encounter Visit Diagnoses Not on filedocumented in this encounter Care Teams Oxyhydrogen Welder Relationship Specialty Start Date End Date Doretha Quiros MD PCP - General 11/27/06 12/24/24 NO DME 08/13/18 documented as of this encounter
--- OUTSIDE RECORDS SUMMARY | 2025-02-17 16:01 | XMS_ITS | Encounter Summary ---
Author Organization [facility] Address [address] [place] [address] Care Team Providers Care Rural Carrier Associate Name Role Phone Doretha Quiros MD Primary Care Provider [phone] Encounter Details Date Type Department Care Team (Late st Contact Info) Description 08/19/2005 Outpatient Historical [facility] Internal Medicine Medical [place] A 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
--- OUTSIDE RECORDS SUMMARY | 2025-02-17 16:01 | XMS_ITS | Encounter Summary ---
Author Organization [employer] Address 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
--- OUTSIDE RECORDS SUMMARY | 2025-02-17 16:01 | XMS_ITS | Encounter Summary ---
Author Organization [facility] Address [address] [place] [address] Care Team Providers Care House Visitor Name Role Phone Doretha Quiros MD Primary Care Provider [phone] Encounter Details Date Type Department Care Team (Latest Contact Info) Description 10/19/2002 Outpatient Historical [facility] Greenwood, Jace Zazueta MD [address] [place] [address] SCREENING MAMM-MAILG NEOPL-OTHER (Primary Dx) Social History Tobacco Use Types Packs/Day Years Used Date Smoking Tobacco: Never Assessed Comments Unknown Sex and Gender Information Value Date Recorded Sex Assigned at Not on file Legal Sex Female 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
--- OUTSIDE RECORDS SUMMARY | 2025-02-17 16:01 | XMS_ITS | Encounter Summary ---
Author Organization [facility] Address 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
--- OUTSIDE RECORDS SUMMARY | 2025-02-17 16:01 | XMS_ITS | Encounter Summary ---
Author Organization [facility] Address [address] [place] [address] Care Team Providers Care Supply Manager Name Role Phone Doretha Quiros MD Primary Care Provider [phone] Encounter Details Date Type Department Care Team (Late st Contact Info) Description 06/10/2004 Outpatient Historical [facility] Internal Medicine Medical [place] A [address] [facility] [address] [address] Jace Greenwood MD [address] [place], [place] [id number] Social History Tobacco Use Types Packs/Day Years Used Date Smoking Tobacco: Never Assessed Comments Unknown Sex and Gender Information Value Date Recorded Sex Assigned at Not on file Legal Sex Female 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
--- OUTSIDE RECORDS SUMMARY | 2025-02-17 16:01 | XMS_ITS | Encounter Summary ---
Author Organization [facility] Address 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
--- OUTSIDE RECORDS SUMMARY | 2025-02-17 16:01 | XMS_ITS | Encounter Summary ---
Author Organization [facility] Address [address] [place] [address] Care Team Providers Care Small Brake Form Operator Name Role Phone Doretha Quiros MD Primary Care Provider [phone] Encounter Details Date Type Department Care Team (Latest Contact Info) Description 10/10/2003 Outpatient Historical [facility] Greenwood, Jace Zazueta MD [address] [place] [address] JOINT PAIN-UNSPEC (Primary Dx) Social History Tobacco Use Types Packs/Day Years Used Date Smoking Tobacco: Never Assessed Comments Unknown Sex and Gender Information Value Date Recorded Sex Assigned at Not on file Legal Sex Female 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
--- OUTSIDE RECORDS SUMMARY | 2025-02-17 16:01 | XMS_ITS | Encounter Summary ---
Author Organization [facility] Address 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
--- OUTSIDE RECORDS SUMMARY | 2025-02-17 16:02 | XMS_ITS | Continuity of Care Document ---
Author Organization [facility] Address [address] Teja Noel [address] [place] [address] Phone Care Team Providers Care Youtuber Name Role Phone Jonel Rios MD Unavailable Unavailable Allergies, Adverse Reactions, Alerts Substance Reaction Status Criticality No Known Allergies Active No Inform ation Medications Medication Instructions Dosage Effective Dates (start - stop) Status Comments hydrocodone 10 mg-acetaminophen 325 mg tablet take 1-2 tablet by oral route every 4 - 6 hours as needed for pain - Active tramadol 50 mg tablet take 1 Tablet by oral route every 4 hours as needed - Active baclofen 10 mg tablet TAKE ONE-HALF TABLET BY MOUTH EVERY 6 HOURS AND 1 TABLET BY MOUTH AT BEDTIME NEEDED - Active Narcan 4 mg/actuation nasal spray spray 0.1mL by nasal route in 1 nostril may repeat dose q2-3 minutes as needed alternating nostrils with each PRN only for overdose symptoms - Active fluocinonide 0.05 % topical cream apply by topical route to affected area in Physical Therapy during Phonopheresis- dispense 60 gram tube - Active anastrozole 1 mg tablet take 1 tablet by oral route every day 1 MG - Active hydrocodone 10 mg-acetaminophen 325 mg tablet take 1 tablet by oral route every 4 - 6 hours as needed for pain 1.00 tablet - Active trazodone 50 mg tablet take 1 tablet by oral route 3 times every day after meals 50 MG - Active omeprazole 20 mg capsule,delayed release take 1 capsule by oral route every day before a meal 20 MG - Active metoprolol succinate ER 50 mg tablet,extended release 24 hr take 1 tablet by oral route every day 50 MG - Active simvastatin 40 mg tablet take 1 tablet by oral route every day in the evening 40 MG - Active lisinopril 20 mg-hydrochlorothiaz hugo 25 mg tablet take 1 tablet by oral route every day 1.00 tablet - Active hydrocodone 10 mg-acetaminophen 325 mg tablet take 1-2 tablet by oral route every 4 - 6 hours as needed for pain - No Longer Active tramadol 50 mg tablet take 1 Tablet by oral route every 4 hours as needed - No Longer Active Procedures Procedure Date OFFICE/OUTPATIENT VISIT EST OFFICE/OUTPATIENT VISIT EST OFFICE/OUTPATIENT VISIT EST OFFICE/OUTPATIENT VISIT EST OFFICE/OUTPATIENT VISIT EST OFFICE/OUTPATIENT VISIT EST OFFICE/OUTPATIENT VISIT EST OFFICE/OUTPATIENT VISIT EST OFFICE/OUTPATIENT VISIT EST POSTOP FOLLOW-UP VISIT POSTOP FOLLOW-UP VISIT POSTOP FOLLOW-UP VISIT FIXATION OF KNEE JOINT POSTOP FOLLOW-UP VISIT POSTOP FOLLOW-UP VISIT OFFICE/OUTPATIENT VISIT EST OFFICE/OUTPATIENT VISIT EST OFFICE/OUTPATIENT VISIT EST OFFICE/OUTPATIENT VISIT EST OFFICE/OUTPATIENT VISIT EST OFFICE/OUTPATIENT VISIT NEW POSTOP FOLLOW-UP VISIT OFFICE/OUTPATIENT VISIT EST OFFICE/OUTPATIENT VISIT EST OFFICE/OUTPATIENT VISIT EST OFFICE/OUTPATIENT VISIT NEW OFFICE/OUTPATIENT VISIT EST OFFICE/OUTPATIENT VISIT EST OFFICE/OUTPATIENT VISIT EST OFFICE/OUTPATIENT VISIT EST OFFICE/OUTPATIENT VISIT EST OFFICE/OUTPATIENT VISIT EST OFFICE/OUTPATIENT VISIT EST OFFICE/OUTPATIENT VISIT EST OFFICE/OUTPATIENT VISIT EST OFFICE/OUTPATIENT VISIT NEW OFFICE/OUTPATIENT VISIT EST OFFICE/OUTPATIENT VISIT EST POSTOP FOLLOW-UP VISIT OFFICE/OUTPATIENT VISIT NEW OFFICE/OUTPATIENT VISIT EST OFFICE/OUTPATIENT VISIT NEW OFFICE/OUTPATIENT VISIT EST OFFICE/OUTPATIENT VISIT EST OFFICE/OUTPATIENT VISIT EST OFFICE/OUTPATIENT VISIT EST Advance Directives Directive Yes / No Effective Date File Name No Information Encounters Encounter Description Practice Location Reason(s) For Visit Diagnoses Date Provider Providers Copied on Encounter OFFICE/OUTPA TIENT VISIT EST [facility], [address] [address], [place], [address], tel:[phone] [facility] Spinal stenosis, lumbar region without neurogenic claudication Spondylosis of lumbosacral region without myelopathy or radiculopath yLong term (current) use of opiate analgesicCer vicalgiaPost laminectomy syndrome, not elsewhere classified 1 Gabriel Remy. [address], [place], [place], [id number]. tel:[phone] [facility], [address], [address], [place] tel:[phone] [facility] No Information 1 Gabriel Remy. [address], [place], [place], [id number]. tel:[phone] OFFICE/OUTPA TIENT VISIT EST [facility], [address] [address], [place], [address], [place] tel:[phone] [facility] Postlaminect get syndrome, not elsewhere classifiedCe rvicalgiaSpo ndylosis of lumbosacral region without myelopathy or radiculopath yPain, chronic postoperativ eLong term (current) use of opiate analgesicSpi nal stenosis, lumbar region without neurogenic claudication 0 Gabriel Remy. [address], [place], [place], [id number]. tel:[phone] [facility], [address], [address], [place] tel:[phone] [facility] No Information 0 Gabriel Remy. [address], [place], [place], [address]. tel:[phone] OFFICE/OUTPA TIENT VISIT EST [facility], [address], [address], [place] tel:[phone] [facility] Pain, chronic postoperativ eSpondylosis of lumbosacral region without myelopathy or radiculopath yCervicalgia Postlaminect get syndrome, not elsewhere classifiedLo ng term (current) use of opiate analgesic 0 Gabriel Remy. [address], [place], [place], [address]. tel:[phone] OFFICE/OUTPA TIENT VISIT EST [facility], [address], [address], [place] tel:[phone] [facility] Spondylosis of lumbosacral region without myelopathy or radiculopath yPostlaminec alexandra syndrome, not elsewhere classifiedLu mbar facet arthropathyS lita stenosis, lumbar region with neurogenic claudication Apr- 0 Gabriel Remy. [address], [place], [place], [address]. tel:[phone] [facility], [address], [address], [place] tel:[phone] [facility] CervicalgiaS pondylosis of lumbosacral region without myelopathy or radiculopath y 0 Gabriel Remy. [address], [place], [place], [address]. tel:[phone] OFFICE/OUTPA TIENT VISIT EST [facility], [address], [address], [place] tel:[phone] [facility] Other specified dorsopathies , cervical regionCervic algiaBilater al low back pain without sciaticaSpon dylosis of lumbosacral region without myelopathy or radiculopath yPain, chronic postoperativ e 9-202 0 Rolando Loni. [address] [facility] [address], [place], [place], [address]. tel:[phone] [facility], [address] [address], [place], [address], [place] tel:[phone] [facility] Sacroiliitis Spondylosis of lumbosacral region without myelopathy or radiculopath y 0- 9 Gabriel Urbinaian. [address], [place], [place], [id number]. tel:[phone] [facility], [address] [address], [place], [address], [place] tel:[phone] [facility] Sacroiliitis 9 Rolando Loni. [address] [facility] [address], [place], [place], [address]. tel:[phone] OFFICE/OUTPA TIENT VISIT EST [facility], [address] [address], [place], [address], [place] tel:[phone] [facility] Sacroiliitis Bilateral low back pain without sciaticaSpin al stenosis, lumbar region without neurogenic claudication 9 Rolando Loni. [address] [facility] [address], [place], [place], [id number]. tel:[phone] Referring Provider: Doretha Nolan, [address], [place], [address] . tel:[phone] OFFICE/OUTPA TIENT VISIT EST [facility], [address] [facility] [address], [place], [address], [place] tel:[phone] [facility] History of total left knee replacement (TKR) 9 Aniyah Simmons. [address] [place], [place], [id number]. tel:[phone] OFFICE/OUTPA TIENT VISIT EST [facility], [address] [facility] [address], [place], [address], [place] tel:[phone] [facility] Spinal stenosis of lumbar region without neurogenic claudication Bilateral low back pain without sciaticaSacr oiliitis 9 Rolando Loni. [address] [facility] [address], [place], [place], [address]. tel:[phone] OFFICE/OUTPA TIENT VISIT EST [facility], [address] [facility] [address], [place], [address], [place] tel:[phone] [facility] Pain, chronic postoperativ eBilateral low back pain without sciaticaSpin al stenosis of lumbar region without neurogenic claudication CervicalgiaO ther specified dorsopathies , cervical region 9 Rolando Loni. [address] [facility] [address], [place], [place], [address]. tel:[phone] [facility], [address], [address], [place] tel:[phone] [facility] Status post total left knee replacement 9 Aniyah Simmons. [address] [place], [place], [id number]. tel:[phone] [facility], [address] [place] [address], [address], [place] tel:[phone] [facility] Status post total left knee replacement 9 Aniyah Simmons. [address] [place], [place], [address]. tel:[phone] Referring Provider: Doretha Nolan, [address], [place], [address] . tel:[phone] [facility], [address] [facility] [address], [place], [address], [place] tel:[phone] [facility] Status post total left knee replacementF ibrosis due to internal orthopedic prosthetic devices, implants and grafts, initial encounter 9 Aniyah Troy. [address] [place], [place], [address]. tel:[phone] [facility], [address] [place] [address], [address], [place] tel:[phone] [facility] Status post total left knee replacement 8 Aniyah Simmons. [address] [place] [address], [id number]. tel:[phone] [facility], [address] [place] [address], [address], [place] tel:[phone] [facility] Status post total left knee replacement 8 Aniyah Simmons. [address] [place] [address], [id number]. tel:[phone] [facility], [address] [place] [address], [place], [address], [place] tel:[phone] [facility] [address] Primary osteoarthrit is of left kneePrimary osteoarthrit is of both knees Sep-0 6- 8 Aniyah John. [address] [place] [address], [id number]. tel:[phone] OFFICE/OUTPA TIENT VISIT [facility], [address] [place] [address], [place], [address], [place] tel:[phone] [facility] Primary osteoarthrit is of left knee Sep-0 6- 8 Aniyahanastasia Simmons. [address] [place] [address], [id number]. tel:[phone] Referring Provider: Doretha Nolan, [address], [place], [address] . tel:[phone] OFFICE/OUTPA TIENT VISIT [facility], [address] [place] [address], [address], [place] tel:[phone] [facility] CervicalgiaB ilateral low back pain without sciaticaPain , chronic postoperativ e 8 Rolando Ivey. [address] [place], [place] [address], [place], [place], [address]. tel:[phone] Specialist : Troy Dill, [address] [place] [address], [address] . tel:[phone] OFFICE/OUTPA TIENT VISIT [facility], [address] [place] [address], [address], tel:[phone] [facility] Primary osteoarthrit is of left knee 8 Aniyah Simmons. [address] [place] [address], [id number]. tel:[phone] Specialist : Troy Dill, [address] [place] [address], [address] . tel:[phone] OFFICE/OUTPA TIENT VISIT [facility], [address] [place] [address], [address], [place] tel:[phone] [facility] Primary osteoarthrit is of first carpometacar pal joint of left hand Feb-3 0-201 8 Barry Amaya. [address] [place] [address], [id number]. tel:[phone] OFFICE/OUTPA TIENT VISIT [facility], [address] [place] [address], [address], [place] tel:[phone] [facility] Bilateral low back pain without sciaticaCerv icalgiaPain, chronic postoperativ e 8 Sushant Mccormick. [address] [place] [address], [id number]. tel:[phone] Specialist : Troy Dill, [address] [place] [address], [address] . tel:[phone] OFFICE/OUTPA TIENT VISIT [facility], [address] [place] [address] [place], [address], [place] tel:[phone] [facility] Primary osteoarthrit is of first carpometacar pal joint of left handBody mass index (BMI) 29.0-29.9, adult 8 Barry Amaya. [address] [place], [place], [address]. tel:[phone] [facility], [address] [place] [address], [address], [place] tel:[phone] [facility] Status post arthroscopy of right kneePrimary osteoarthrit is of right knee 7 Aniyah Simmons. [address] [place], [place], [address]. tel:[phone] [facility], [address] [place] [address], [address], [place] tel:[phone] [facility] Status post arthroscopy of right knee 7 Aniyah Simmons. [address] [place], [place], [id number]. tel:[phone] [facility], [address] [place] [address], [address], [place] tel:[phone] [facility] Complex tear of medial meniscus of right knee as current injury, subsequent encounterOth er meniscus derangements , posterior horn of medial meniscus, right knee 7 Aniyah Simmons. [address] [place] [address], [id number]. tel:[phone] OFFICE/OUTPA TIENT VISIT EST [facility], [address] [place] [address], [address], [place] tel:[phone] [facility] tear of medial meniscus of right knee as current injury, subsequent encounter 7 Patrice Mccrary. [address], [id number]. tel:[phone] Referring Provider: Troy Dill, [address], [place], [address]. tel:[phone] OFFICE/OUTPA TIENT VISIT [facility], [address] [facility] [address], [place], [address], [place] tel:[phone] [facility] Bilateral low back pain without sciaticaSpin al stenosis of lumbar regionCervic algiaSpinal stenosis of cervical regionPain, chronic postoperativ e 7 Rolando Loni. [address] [facility] [address], [place], [place], [address]. tel:[phone] OFFICE/OUTPA TIENT VISIT [facility], [address] [facility] [address], [place], [address], [place] tel:[phone] [facility] Acute pain of right kneeOther internal derangements of right kneeStrain of other muscle(s) and tendon(s) at lower leg level, right leg, initial encounter Patrice Mccrary. [address] [facility] [address], [place], [address]. tel:[phone] OFFICE/OUTPA TIENT VISIT [facility], [address] [facility] [address], [place], [address], [place] tel:[phone] [facility] LT KNEE PAIN (chief complaint) Body mass index (BMI) 29.0-29.9, adultPrimary osteoarthrit is of left knee 7 Aniyah Simmons. [address] [place] [address], [id number]. tel:[phone] OFFICE/OUTPA TIENT VISIT [facility], [address] [facility] [address], [place], [address], [place] tel:[phone] [facility] Pain, chronic postoperativ eBilateral low back pain without sciaticaSpin al stenosis of lumbar regionCervic algiaSpinal stenosis of cervical region Feb-0 7 Rolando Loni. [address] [facility] [address], [place], [place], [address]. tel:[phone] OFFICE/OUTPA TIENT VISIT [facility], [address] [facility] [address], [place], [address], [place] tel:[phone] [facility] CervicalgiaS lita stenosis of lumbar regionBilate ral low back pain without sciaticaPain , chronic postoperativ e 7 Sushant Jace. [address] [place], [place], [id number]. tel:[phone] OFFICE/OUTPA TIENT VISIT [facility], [address] [facility] [address], [place], [address], [place] tel:[phone] [facility] Bilateral low back pain without sciaticaSpin al stenosis of lumbar region 6 Sushant Jace. [address] [place], [place], [address]. tel:[phone] OFFICE/OUTPA TIENT VISIT [facility], [address] [facility] [address], [place], [address], [place] tel:[phone] [facility] Spinal stenosis of lumbar regionCervic algiaBilater al low back pain without sciaticaSpon dylosis of cervical region without myelopathy or radiculopath ySpondylosis of lumbar region without myelopathy or radiculopath yPain, chronic postoperativ eDiffuse painInflamma tory polyarthropa thyMyopathy 6 Rolando Ivey. [address] [facility] [address], [place], [place], [id number]. tel:[phone] OFFICE/OUTPA TIENT VISIT [facility], [address] [facility] [address], [place], [address], [place] tel:[phone] [facility] Spondylosis of lumbar region without myelopathy or radiculopath ySpondylosis of cervical region without myelopathy or radiculopath yBilateral low back pain without sciaticaCerv icalgiaSpina l stenosis of lumbar region Feb- 6 Rolando Ivey. [address] [facility] [address], [place], [place], [address]. tel:[phone] OFFICE/OUTPA TIENT VISIT [facility], [address], [address], tel:[phone] [facility] Pain, chronic postoperativ eSpondylosis of lumbar region without myelopathy or radiculopath yCervicalgia Spinal stenosis of lumbar regionBilate ral low back pain without sciatica 6 Sushant Mccormick. [address] [place], [place], [address]. tel:[phone] [facility], [address] [place] [address], [address], tel:[phone] [facility] Low back painSpondylo sis without myelopathy or radiculopath y, lumbar regionSpinal stenosis, lumbar region 5 Sushant Mccormick. [address] [place] [address], [id number]. tel:[phone] Referring Provider: Jace Canchola, [address] [place], [address] . tel:[phone] OFFICE/OUTPA TIENT VISIT [facility], [address] [place] [address], [address], [place] tel:[phone] [facility] Low back painLumbosac ral spondylosis without myelopathyEn thesopathy of hip region 5 Rolando Loni. [address] [facility] [address], [place], [place], [address]. tel:[phone] OFFICE/OUTPA TIENT VISIT [facility], [address] [place] [address], [address], [place] tel:[phone] [facility] CervicalgiaL ow back painOther chronic postoperativ e painLumbosac ral spondylosis without myelopathy 5 Rolando Loni. [address] [facility] [address], [place], [place], [address]. tel:[phone] OFFICE/OUTPA TIENT VISIT EST [facility], [address] [address], [place], [address], [place] tel:[phone] [facility] 3 MOS FOLLOW UP (chief complaint) CervicalgiaL ow back painOther chronic postoperativ e pain Jan-2 - 5 Sushant Mccormick. [address] [place], [place], [address]. tel:[phone] OFFICE/OUTPA TIENT VISIT [facility], [address] [place] [address], [address], [place] tel:[phone] [facility] right wrist (chief complaint) Ganglion of wrist Oct- 4 Murtaza Alvarez. [address] [place] [address] [address], [place], [place], [id number], [place]. tel:[phone] OFFICE/OUTPA TIENT VISIT [facility], [address] [place] [address], [address], [place] tel:[phone] [facility] RFN FOLLOW UP (chief complaint)50 -75% IMPRVOEMENT (chief complaint) Other chronic postoperativ e painLumbosac ral spondylosis without myelopathyCe rvicalgiaLow back pain Oct-2 - 4 Sushantankit Mccormick. [address] [place], [place], [id number]. tel:[phone] [facility], [address] [place] [address], [address], [place] tel:[phone] [facility] CervicalgiaL ow back pain Oct-0 - 4 Sushant Mccormick. [address] [place], [place], [address]. tel:[phone] [facility], [address] [place] [address], [address], [place] tel:[phone] [facility] Low back painCervical dashawn Sep- 4 Sushant Mccormick. [address] [place], [place], [address]. tel:[phone] OFFICE/OUTPA TIENT VISIT EST [facility], [address], [address], [place] tel:[phone] [facility] Lumbosacral spondylosis without myelopathyCe rvicalgiaLow back painOther chronic postoperativ e pain 3 4 Sushant Mccormick. [address] [place], [place], [address]. tel:[phone] [facility], [address] [place] [address], [address], [place] tel:[phone] [facility] Spinal stenosis in cervical region 4 Curylo Jose. [address] [place], [place], [address]. tel:[phone] OFFICE/OUTPA TIENT VISIT [facility], [address] [place] [address], [address], tel:[phone] [facility] Spinal stenosis in cervical region 2 4 Curylo Jose. [address] [place], [place], [address]. tel:[phone] [facility], [address] [place] [address], [address], [place] tel:[phone] [facility] cervical spine (chief complaint) Spinal stenosis in cervical region 4 Curylo Jose. [address] [place], [place], [address]. tel:[phone] OFFICE/OUTPA TIENT VISIT [facility], [address] [place] [address], [address], [place] tel:[phone] [facility] CervicalgiaS lita stenosis in cervical regionLumbos acral spondylosis without myelopathyLo w back pain - 4 Sushant Mccormick. [address] [place] [address], [id number]. tel:[phone] OFFICE/OUTPA TIENT VISIT [facility], [address] [place] [address], [address], [place] tel:[phone] [facility] CervicalgiaS lita stenosis in cervical region 4-201 4 Allison Garcia. [address] [place] [address], [id number]. tel:[phone] Referring Provider: Jace Canchola, [address] [place], [address] . tel:[phone] OFFICE/OUTPA TIENT VISIT [facility] Orthopa[facility] Surgery, [address] [place] [address], [id number], [place] tel:[phone] [facility] CervicalgiaL ow back painSpinal stenosis in cervical region Fe 2 4 Sushant Mccormick. [address] [place] [address], [id number]. tel:[phone] OFFICE/OUTPA TIENT VISIT [facility], [address] [place] [address], [id number], [place] tel:[phone] [facility] CervicalgiaL ow back pain 3 Sushant Mccormick. [address] [place] [address], [id number]. tel:[phone] OFFICE/OUTPA TIENT VISIT [facility], [address] [place] [address], [id number], [place] tel:[phone] [facility] Lumbosacral spondylosis without myelopathyLu mbago 0 3 Sushant Mccormick. [address] [place] [address], [id number]. tel:[phone] OFFICE/OUTPA TIENT VISIT [facility], [address] [place] [address], [id number], [place] tel:[phone] [facility] Abnormal sensation of legLumbosacr al spondylosis without myelopathyLu mbago Nov-0 1-201 3 Rolando Ivey. [address], [place], [place], [id number]. tel:[phone] Family History Family Member Type Diagnosis Age At Onset Father Problem (finding) malignant neoplasm of u rinary bladder Brother Problem (finding) Alive and well Father Problem (finding) malignant neoplasm of u rinary bladder Father Problem (finding) malignant neoplasm of u rinary bladder Immunizations Vaccine Date Status Comments Pneumo (2 yrs or older)(PPV) administered Source: Other Provider Payers Payer name Insurance type Covered alliance party ID Authoriza tipradeep(s) AARP Medicare Complete HMO-POS [id number] Social History Type Description Quantity Date Captured Comments Alcohol Use Details Unknown Caffeine Use Details Unknown Tobacco Use Status Never smoked tobacco 2020 Smoking Status Never smoker Sex Female Chief Complaint And Reason For Visit No Information Reason For Referral Reason For Referral No Information Plan Of Treatment Date Type Action Status Referral Ordered: MRI SPI CANAL&CNTS CRV C-MATRL spine, cervical Appointment date/timeframe: 03/24/2020 ordered Referral Ordered: INJECT SACROILIAC JOINT ordered Referral Ordered: RADEX KNE 1/2 VIEWS LT ordered Referral Ordered: RADEX FNGR MINIMUM 2 VIEWS LT ordered Referral Ordered: ELECTROCARDIOGRAM COMPLETE ordered Referral Ordered: RADEX KNE COMPL 4/MORE VIEWS RT ordered Referral Ordered: MRI ANY JT LXTR C-MATRL ordered Referral Ordered: Synvisc or Synvisc-One LT knee Appointment date/timeframe: 05/10/2017 ordered Referral Ordered: RADEX KNE COMPL 4/MORE VIEWS LT ordered Referral Ordered: MRI SPI CANAL&CNTS LMBR C-MATRL spine, lumbar Appointment date/timeframe: 08/24/2015 ordered Referral Ordered: RADEX PELVIS 1/2 VIEWS ordered Referral Ordered: RADEX WRST COMPL MINIMUM 3 VIEWS RT ordered Referral Ordered: DESTROY LUMB/SAC FACET JNT Appointment date/timeframe: 10/23/2014 ordered Referral Ordered: RADEX SPI CRV MINIMUM 4 VIEWS ordered Referral Ordered: CT CRV SPI C+ MATRL (CV CT Myelogram) spine, cervical Appointment date/timeframe: 03/21/2014 ordered Referral Ordered: RADEX SPI CRV 2/3 VIEWS ordered Referral Ordered: MRI SPI CANAL&CNTS CRV C-MATRL Bilateral spine, cervical Appointment date/timeframe: 10/03/2013 ordered Referral Ordered: DESTROY LUMB/SAC FACET JNT Bilateral spine, lumbar ordered Referral Ordered: [facility]C TEST DONE W/N TEST COMP (EMG/NCS) Bilateral Appointment date/timeframe: 09/27/2013 ordered History Of Present Illness Encounter Date Complaint History Of Prese nt Illness LT KNEE PAIN 3 MOS FOLLOW UP right wrist RFN FOLLOW UP 50-75% IMPRVOEMENT cervical spine Functional Status Date Functional Assessmen t No Information Instructions Date Instruction Additional Infor mation Activity as tolerated. Related t o Bilateral low back pain without sciatica Avoid prolonged bed rest. Relate d to Bilateral low back pain without sciatica Fall risk home exerc ise program handout provided activity as tolerated Related to Primary osteoarthritis of left knee apply heating pad or ice as tolerated Related to Primary osteoarthritis of left knee elevate higher than your heart R elated to Primary osteoarthritis of left knee immobilize if directed Related t o Primary osteoarthritis of left knee home exercise program Related to Primary osteoarthritis of left knee Activity as tolerated. Related t o Pain, chronic postoperative Avoid prolonged bed rest. Relate d to Pain, chronic postoperative Take medication as prescribed. R elated to Pain, chronic postoperative apply heating pad or ice as tolerated Related to Primary osteoarthritis of first carpometacarpal joint of left hand elevate higher than your heart R elated to Primary osteoarthritis of first carpometacarpal joint of left hand Giving encouragement to exercise Related to Body mass index (BMI) 29.0-29.9, adult Giving encouragement to exercise Related to Body mass index (BMI) 29.0-29.9, adult Immobilize as directed. Related to Strain of right knee, initial encounter Home exercise program Related to Strain of right knee, initial encounter Activity as tolerated Related to Strain of right knee, initial encounter Giving encouragement to exercise Related to Body mass index (BMI) 29.0-29.9, adult activity as tolerated Related to Primary osteoarthritis of left knee Apply ice as instructed. Related to Ganglion of wrist Activity as tolerated. Related t o Ganglion of wrist Take medications as directed. Re lated to Ganglion of wrist Activity as tolerated. Related t o Low back pain Avoid prolonged bed rest. 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
--- OUTSIDE RECORDS SUMMARY | 2025-02-17 16:02 | XMS_ITS | Clinical Summary ---
Author Organization [facility] Address [address] [place] [address] Phone Care Team Providers Care Slitting Machine Feeder Name Role Phone Unavailable Primary Care Provider Unavailabl e Allergies Active Allergy Reactions Criticality Noted Date Comments Metformin Diarrhea Low 02/18/2021 Medications calcium carbonate + vitamin D (CALTRATE+D) 600 mg-10 mcg (400 unit) Tablet Take 1 Tab by mouth 2 times daily. 10/04/20 10 Active baclofen (LIORESAL) 10 mg tablet Muscle spasm 09/01/20 20 Active latanoprost (XALATAN) 0.005 % solution INSTILL 1 DROP BOTH EYES EVERY NIGHT AT BEDTIME 12/11/19 22 Active traMADoL (ULTRAM) 50 mg tabletIndicatio ns:Lumbosacral spondylosis without myelopathy Take 1 Tablet (50 mg) by mouth every 8 hours as needed for Pain. 01/13/20 22 Active omega-3 fatty acids-fish oil 300 mg-1,000 mg capsule Take 1 Capsule by mouth daily. Active naloxone (NARCAN) 4 mg/spray [place], Non-Aerosol EMERGENCY USE ONLY: Administer 1 spray (4 mg) in one nostril one time. May repeat in alternating nostrils every 2-3 min until responsive or EMS arrives. 2 Each 3 03/16/20 23 Active acetaminophen-c odeine (TYLENOL #4) 300-60 mg tablet Take 1 Tablet by mouth 3 times daily. 08/25/20 23 Active oxyCODONE-aceta minophen (PERCOCET) 7.5-325 mg Tablet Take 1 Tablet by mouth every 6 hours. 09/28/20 23 Active lisinopril-hydr oCHLOROthiazide (ZESTORETIC) 20-12.5 mg tabletIndicatio ns:Essential hypertension Take 1 Tablet by mouth daily. 180 Tablet 3 10/24/20 23 Active metoprolol succinate (TOPROL XL) 100 mg Extended Release 24 hour tabletIndicatio ns:Essential hypertension TAKE 1 TABLET BY MOUTH DAILY 90 Tablet 3 10/24/20 23 Active pantoprazole (PROTONIX) 40 mg Tablet, Delayed Release (E.C.)Indicatio ns:Gastroesopha geal reflux disease without esophagitis Take 1 Tablet (40 mg) by mouth daily. 90 Tablet 2 10/24/20 23 Active sertraline (ZOLOFT) 100 mg tabletIndicatio ns:Moderate episode of recurrent major depressive disorder (CMS/HCC) Take 1 Tablet (100 mg) by mouth daily. 90 Tablet 3 10/24/20 23 Active traZODone (DESYREL) 100 mg tabletIndicatio ns:Primary insomnia TAKE 1 TABLET BY MOUTH DAILY AT BEDTIME 90 Tablet 3 10/24/20 23 Active amLODIPine (NORVASC) 10 mg tabletIndicatio ns:Essential hypertension TAKE 1 TABLET BY MOUTH DAILY 90 Tablet 2 10/24/20 23 Active alendronate (FOSAMAX) 70 mg tabletIndicatio ns:Age-related osteoporosis with current pathological fracture with routine healing TAKE 1 TABLET BY MOUTH EVERY 7 DAYS. TAKE ON AN EMPTY STOMACH BEFORE OTHER MEDICATIONS. TAKE WITH 8 OUNCES OF WATER. STAY UPRIGHT FOR 30 MINUTES. 12 Tablet 3 07/03/20 24 Active atorvastatin (LIPITOR) 40 mg tabletIndicatio ns:Hypercholest eremia TAKE 1 TABLET(40 MG) BY MOUTH DAILY 30 Tablet 01/25/20 25 Active atorvastatin (LIPITOR) 40 mg tabletIndicatio ns:Hypercholest eremia Take 1 Tablet (40 mg) by mouth daily. 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 Internal Medicine [facility] [address] [place] [id number] Doretha Quiros MD Needs Appointment; Patient Communication 01/24/[address] [facility] Internal Medicine [facility] [address] [address] Marley Aguilera FNP Hypercholesteremia 01/07/2025 External Device Data STL ABSTRACTION Provider, Abstract 12/11/2024 External Device Data STL ABSTRACTION Provider, Abstract 12/10/2024 External Device Data STL ABSTRACTION Provider, Abstract 12/04/2024 External Device Data STL ABSTRACTION Provider, Abstract from Last 3 Months Immunizations Immunization Administration Dates Next Due (PFIZER)(12 YR UP) COVID-19 VACCINE - EMERGENCY USE AUTHORIZATION, MRNA, [id number](PF) 30 MCG/0.3 ML IM SUSP 07/01/2021,06/03/2021 (PNEUMOVAX 23)(50 YRS UP) PN EUMOCOCCAL POLYSACCHARIDE (PPV23) 0.5 ML, IM 12/26/2013 (PREVNAR 13)(6 WKS UP) PNEUM OCOCCAL CONJUGATE (PCV13) 0.5 ML, IM 04/22/2015 Hepatitis B Vaccine 09/20/1996 Pneumococcal Polysaccharide Vacc 23-aroldo IM SCHIP 08/01/2017 Family History Medical History Relation Name Comments No Known Problems Brother Cancer Father bladder and pro state, esophageal- smoker Esophageal Cancer Father Prostate Cancer Father Osteoporosis Mother Diabetes Other many materal re latives Breast Cancer Paternal Cousin Diabetes Paternal Grandfather Diabetes Son Colon Cancer Neg Hx Heart Disease Neg Hx Ovarian Cancer Neg Hx Thyroid Disease Neg Hx Relation Name Status Comments Brother Alive Father Mother Other Paternal Cousin Paternal Grandfather Son Alive Social History Tobacco Use Types Packs/Day Years Used Date Smoking Tobacco: Never Smokeless Tobacco: Never Tobacco Cessation:Counseling Given: No Alcohol Use Standard Drinks/Week Comments No 0 (1 standard drink = 0.6 oz pur e alcohol) Financial Resource Strain Answer Date R ecorded How hard is it for you to pa y for the very basics like food, housing, medical care, and heating? Somewhat hard 08/19/2022 Food Insecurity Answer Date Recorded In the past 12 months, have you worried that your food would run out before you had money to buy more? Never true 08/19/2022 In the past 12 months, did y ou run out of food and didn't have money to buy more? Never true 08/19/2022 Transportation Needs Answer Date Record ed In the past 12 months, has l ack of transportation kept you from medical appointments or from getting medications? No 08/19/2022 Lack of Transportation (Non-Medical) Not on file 08/19/2022 Comments No Sex and Gender Information Value Date Recorded Sex Assigned at Not on file Legal Sex Female 3:37 AM WIRE SAW OPERATOR Gender Identity Not on file Sexual Orientation Not on file Occupation Industry Job Start Date Job End Date Not on file Not on file Not on file Not on file Last Filed Vital Signs Vital Sign Reading Time Taken Comments Blood Pressure 146/76 10/24/2023 8:41 AM WIRE SAW OPERATOR Pulse 75 10/24/2023 8:41 AM WIRE SAW OPERATOR Temperature 36.7 C (98 F) 10/24/2023 8:41 AM WIRE SAW OPERATOR Respiratory Rate 12 10/24/2023 8:41 AM WIRE SAW OPERATOR Oxygen Saturation 98% 10/24/2023 8:41 AM WIRE SAW OPERATOR Inhaled Oxygen Concentration - - Weight 54.9 kg (121 lb) 10/24/2023 8:41 AM WIRE SAW OPERATOR Height 157.5 cm (5' 2 ) 10/24/2023 8:41 AM WIRE SAW OPERATOR Body Mass Index 22.13 10/24/2023 8:41 AM WIRE SAW OPERATOR Plan of Treatment Health Maintenance Due Date Last Done Comments DTAP/TDAP/TD VACCINES (1 - Tdap) 1967 ZOSTER VACCINE (1 of 2) 1998 DIABETES MICROALBUMIN ANNUAL SCREEN 08/09/2022 08/09/2021, 10/20/2020 LDL CHOLESTEROL ANNUAL 08/09/2022 1, 08/09/2021, 07/16/2020, Additional history exists DIABETES HBA1C Q 6 MONTHS 09/15/20222021, 08/09/2021, 02/18/2021, Additional history exists DIABETES ANNUAL RETINAL EXAM 05/24/202303/2022, 10/21/2020, 06/15/2020 RSV VACCINE (60+ or ) (1 - 1-dose 75+ series) 2023 DIABETES ANNUAL FOOT EXAM 03/16/2024 03/16/2023, 11/2020 INFLUENZA VACCINE (#1) 2024 2, 08/14/2020, 08/09/2019 COVID-19 Vaccine (3 - 2023-2 5 season) 2024 07/01/2021, 06/03/2021 [place] Preventative Visit/Annual Wellness Visit 11/20/2024 08/16/2021, 08/14/2020, 08/09/2019, Additional history exists COLORECTAL SCREENING Discontinued 10/10/2013, 10/10/2013, 11/15/2002 PNEUMOCOCCAL VACCINE 50+ YEARS Completed 0 08/01/2017, 04/22/2015, 12/26/2013 OSTEOPOROSIS SCREENING Completed 0, 10/27/2014, 09/14/2010, Additional history exists Colorectal Cancer Screening Discontinued FIT/FOBT Q 1 year Discontinued 04/16/2021, , 10/25/2016 FIT-DNA Q 3 years Discontinued Flex Sig/CT Colonography Q 5 years Discontinued Medical Devices Implanted Type Area Ui Programmer Device Identifier Shelf Expiration Date Model / Serial / Lot Infuse Protein Kit [id number] - [id number] Implanted:Qt y: 1 on 05/09/2014 by Jose Cooper MD at [facility] Biological N/A: Spine Cervical Anterior [employer]- SOFAMOR DANEK 02/19/2016 [id number] / / [id number] Cement Rally Hv 40gm 7151-1229 - [id number] Implanted:Qt y: 2 on 09/21/2018 by Troy Dill MD at [facility] Cement Left: Knee JIMENEZ NEPHEW ORTHO 02/17/2023 [id number] / / [id number] Description:REQUISITION # [id number]. Hemostatic Surgicel 4x8in 1953 - [id number] Implanted:Qt y: 1 on 02/19/2018 by Cayla Sarabia MD at [facility] Left: Breast [employer]- [employer] 08/19/20221951 / / [id number] Comp Fem Jrny2 Oxnm Sz4 Lt 9179-3542 - [id number] Implanted:Qt y: 1 on 09/21/2018 by Troy Dill MD at [facility] Knee Left: Knee JIMENEZ NEPHEW ORTHO [id number] 02/24/2028 [id number] / / [id number] Patella Jrny Resurf Std 7306-4149 - [id number] Implanted:Qt y: 1 on 09/21/2018 by Troy Dill MD at [facility] Knee Left: Knee JIMENEZ NEPHEW ORTHO 07/15/2028 [id number] / / [id number] Comp Tib Jrny Bcs Npor Sz4 Lt [id number] - [id number] Implanted:Qt y: 1 on 09/21/2018 by Troy Dill MD at [facility] Knee Left: Knee JIMENEZ NEPHEW ORTHO [id number] 05/08/2028 [id number] / / [id number] Ins Jrny2 Sz3-4 Lt 9mm 2428-5112 - [id number] Implanted:Qt y: 1 on 09/21/2018 by Troy Dill MD at [facility] Knee Left: Knee JIMENEZ NEPHEW ORTHO 07/01/2028 [id number] / / [id number] Assure Plate Implanted:Qt y: 1 on 05/09/2014 by Jose Cooper MD at [facility] Plate N/A: Spine Cervical Anterior [facility] 110.234 / / Description:load # 210 Apr 202013 Assure Screw Implanted:Qt y: 4 on 05/09/2014 by Jose Cooper MD at [facility] Screw N/A: Spine Cervical Anterior [facility] 110.812 / / Description:load # 210 Apr 202013 Sealant Floseal W/ Adptr 10ml [id number] - [id number] Implanted:Qt y: 1 on 05/09/2014 by Jose Cooper MD at [facility] Sealant N/A: Spine Cervical Anterior GORE- BIOSCIENCE 06/19/2015 [id number] / / [id number] Sealant Floseal W/ Adptr 10ml [id number] - [id number] Implanted:Qt y: 1 on 05/09/2014 by Jose Cooper MD at [facility] Sealant N/A: Spine Cervical Anterior GORE- BIOSCIENCE 07/19/2015 [id number] / / [id number] Fortify 12mm Core, Height 19-25mm Implanted:Qt y: 1 on 05/09/2014 by Jose Cooper MD at [facility] N/A: Spine Cervical Anterior 151.051 / / Description:LOAD # 210; STER ILIZED 05-08-2014 Fortify 12mm Upper Endplate, [id number] Footprint Implanted:Qt y: 1 on 05/09/2014 by Jose Cooper MD at [facility] N/A: Spine Cervical Anterior 151.701 / / Description:LOAD # 210; STER ILIZED 05/08/2014 Fortify 12mm Lower Endplate, [id number] Footprint Implanted:Qt y: 1 on 05/09/2014 by Jose Cooper MD at [facility] N/A: Spine Cervical Anterior 151.751 / / Description:LOAD #210, STERI LIZED 05/08/2014 Procedures Procedure Name Priority Date/Time Associated Diagnosis Comments HEMOGLOBIN A1C Routine 03/16/2022 MICROALBUMIN/CREATIN INE RATIO, RANDOM UR Routine 08/09/2021 9:39 AM CDT Type 2 diabetes mellitus without complication, without long-term current use of insulin ([facility]) LIPID PANEL Routine 08/09/2021 9:39 AM CDT Hypercholesteremia OCCULT BLOOD IMMUNOASSAY, COLORECTAL SCREEN Routine 04/16/2021 5:37 PM CDT Screen for colon cancer HM DIABETES EYE EXAM Routine 10/21/2020 XR DEXA BONE DENSITY AXIAL 1 OR MORE SITES Routine 01/20/2020 10:35 AM WIRE SAW OPERATOR Hyperparathyroidism , primary Menopause ENDOSCOPY, COLON, DIAGNOSTIC Routine 10/10/2013 from Last 3 Months or Most Recently Relevant to Health Maintenance Results * HEMOGLOBIN A1C (03/16/2022) ABSTRACTED HGB A1C 5.6 Blood us Abstract Provider CHEMISTRY ORDERABLES Edited Re sult - Final * (ABNORMAL) MICROALBUMIN/CREATININE RATIO, RANDOM UR (08/09/2021 9:39 AM CDT) MICROALBUMIN/C REAT RATIO, UR 7.0 <=25.0 mg/g [facility] CREATININE, URINE 398.2(A) 29.0 - 226.0 mg/dL [facility] MICROALBUMIN, URINE 29.8(A) 0.0 - 16.6 mg/dL [facility] Urine URINE SPECIMEN OBTAINED BY CLEAN CATCH PROCEDURE / Unknown 08/09/2021 9:39 AM CDT us Doretha Quiros MD URINE ORDERABLES Final Resul t [facility] [address] [place] [address] * (ABNORMAL) LIPID PANEL (08/09/2021 9:39 AM CDT) CHOLESTEROL 159 <=200 mg/dL [facility] TRIGLYCERIDE 60 <=150 mg/dL [facility] HDL 44 40 - 59 mg/dL [facility] LDL CALCULATED 103(A) <=100 mg/dL [facility] Blood 08/09/2021 9:39 AM CDT Doretha Quiros MD CHEMISTRY ORDERABLES Final R esult Performing Organization Address City/[facility]/ZIP Co de Phone Number [facility] [address] [place] [address] * OCCULT BLOOD IMMUNOASSAY, COLORECTAL SCREEN (04/16/2021 5:37 PM CDT) Pathologist [facility] OCCULT BLOOD, STOOL Negative Negative 04/28/2021 6:41 PM CDT [facility] Stool STOOL SPECIMEN / Unknown Collection / Unknown 04/16/2021 5:37 PM CDT 04/28/2021 5:37 PM CDT Doretha Quiros MD BODY FLUIDS AND STOOLS Final Result Performing Organization Address [facility] Co de Phone Number [facility] [email or web address] [facility] CLIA# [id number] [address] [place] [address] * DIABETES EYE EXAM (10/21/2020) [facility] Other HEALTH MAINTENANCE Edited Result - Final Performing Organization Address [facility] Co de Phone Number [facility] MD CLIA# [id number] [address] [address] * XR DEXA BONE DENSITY AXIAL 1 OR MORE SITES (01/20/2020 10:35 AM WIRE SAW OPERATOR) Anatomical Region Laterality Modality Digital Radiogra phy 01/20/2020 10:3 5 AM WIRE SAW OPERATOR Narrative 01/20/2020 11:09 AM WIRE SAW OPERATOR XR DEXA BONE DENSITY AXIAL 1 OR MORE SITES DATE: 01/20/2020 10:35 AM HISTORY: 69 years old Female with post menopausal symptoms. PROCEDURE: Planar images of the lumbar spine and hip(s) using a Peakos DEXA scanner for bone mineral density determination (BMD). Comparison is made with the prior bone density performed 10/27/2014 FINDINGS: Lumbar Spine (L1-L4) 1.304 gm/cm2, T-score: +1.0 Prior: 1.320 gm/cm2, -1.2% change Left femoral neck 0.880 gm/cm2, T-score: -1.1 Prior: 0.933 gm/cm2, -5.7% change Right femoral neck 0.879 gm/cm2, T-score: -1.1 Prior: 0.910 gm/cm2, -3.4% change Comments: None IMPRESSION Osteopenic bone mineral density. STATISTICAL CHANGE: Significant decrease in bone mineral density of the left femoral neck since the prior study. A statistically significant change is defined as a change of greater than 2.5 standard deviations in the least significant difference from the prior study. Least significant differences are defined as follows: Lumbar spine: +/- 0.010 g/cm2 Femoral neck: +/- 0.014 g/cm2 Forearm radius 33%: +/- 0.020 g/cm2 DEFINITIONS: Normal: T-score above -1.0 Osteopenia T-score less than -1.0 and above -2.5 Osteoporosis: T-score < -2.5 FRAX FRACTURE RISK ASSESSMENT: Risk factors: Secondary osteoporosis 10 Year Probability Of Fracture -Major Osteoporotic: 9.0% -Hip: 1.1% -Comparison population: [place], A major osteoporotic fracture is defined as a fracture of the spine, forearm, hip or shoulder. FOLLOW-UP RECOMMENDATIONS: Patients without high risk factors for osteoporosis: T-score -1.0 to -1.5 - Consider repeat BMD in 5-10 years T-score -1.5 to -2.0 - Consider repeat BMD in 3-5 years T-score -2.0 to - 2.5 - Consider repeat BMD every 2 years Patients on treatment for osteoporosis: 1-2 years after initiation of treatment and every 2 years [address] Crow Paredes DO DICTATION LOCATION: Location 1 - [facility] Procedure Note Crow Paredes DO - 01/20/2020 XR DEXA BONE DENSITY AXIAL 1 OR MORE SITES DATE: 01/20/2020 10:35 AM HISTORY: 69 years old Female with post menopausal symptoms. PROCEDURE: Planar images of the lumbar spine and hip(s) using a Peakos DEXA scanner for bone mineral density determination (BMD). Comparison is made with the prior bone density performed 10/27/2014 FINDINGS: Lumbar Spine (L1-L4) 1.304 gm/cm2, T-score: +1.0 Prior: 1.320 gm/cm2, -1.2% change Left femoral neck 0.880 gm/cm2, T-score: -1.1 Prior: 0.933 gm/cm2, -5.7% change Right femoral neck 0.879 gm/cm2, T-score: -1.1 Prior: 0.910 gm/cm2, -3.4% change Comments: None IMPRESSION Osteopenic bone mineral density. STATISTICAL CHANGE: Significant decrease in bone mineral density of the left femoral neck since the prior study. A statistically significant change is defined as a change of greater than 2.5 standard deviations in the least significant difference from the prior study. Least significant differences are defined as follows: Lumbar spine: +/- 0.010 g/cm2 Femoral neck: +/- 0.014 g/cm2 Forearm radius 33%: +/- 0.020 g/cm2 DEFINITIONS: Normal: T-score above -1.0 Osteopenia T-score less than -1.0 and above -2.5 Osteoporosis: T-score < -2.5 FRAX FRACTURE RISK ASSESSMENT: Risk factors: Secondary osteoporosis 10 Year Probability Of Fracture -Major Osteoporotic: 9.0% -Hip: 1.1% -Comparison population: [place], A major osteoporotic fracture is defined as a fracture of the spine, forearm, hip or shoulder. FOLLOW-UP RECOMMENDATIONS: Patients without high risk factors for osteoporosis: T-score -1.0 to -1.5 - Consider repeat BMD in 5-10 years T-score -1.5 to -2.0 - Consider repeat BMD in 3-5 years T-score -2.0 to - 2.5 - Consider repeat BMD every 2 years Patients on treatment for osteoporosis: 1-2 years after initiation of treatment and every 2 [address] Crow Paredes, DO DICTATION LOCATION: Location 1 - [facility] Doretha Quiros MD DIAGNOSTIC IMAGING ORDERABLE S Final Result * ENDOSCOPY, COLON, DIAGNOSTIC (10/10/2013) us Doretha Quiros MD GI PROCEDURE ORDERABLES Nancy l Result [facility] from Last 3 Months or Most Recently Relevant to Health Maintenance Insurance MEDICAID [place] RX [employer] RX Member Subscriber Plan / Payer (Ef fective for All Dates) Name:Daniela Wells [place] Relation to Subscriber:Self Name:YosefRohit martinezjustus Corrales Subscriber ID:Not on file Payer ID:Not on file Group ID:[id number] Type:RX Medicare Part D Address: [place] [employer] RX Member Subscriber Plan / Payer (Ef fective for All Dates) Name:Daniela Wells Relation to Subscriber:Self Name:Daniela Wells Payer ID:Not on file Group ID:[id number] Type:RX Medicare Part D Address: [place] [employer] PL[employer] (INTERNAL) [facility] Internal Plans Advance Directives For more information, please contact: [phone] * Full Code (Latest Code Status on File) Date Activated Date Inactivated Comments 09/21/2018 6:19 PM 09/23/2018 4:32 PM * Full Code Date Activated Date Inactivated Comments 09/21/2018 2:08 PM 09/21/2018 6:18 PM * Full Code Date Activated Date Inactivated Comments 09/21/2018 11:46 AM 09/21/2018 2:08 PM * Full Code Date Activated Date Inactivated Comments 02/19/2018 11:03 AM 02/19/2018 5:20 PM * Full Code Date Activated Date Inactivated Comments 05/09/2014 12:10 PM 05/11/2014 1:07 PM Care Teams Slitting Machine Feeder Relationship Specialty Start Date End Date NO DME 08/13/18
== END 2025-02-17 14:27 | disposition home or self-care (01) ==
PROVIDERS: PCP Nurse Practitioner Family; Visit Provider Pain Medicine Interventional Pain Medicine
DX: M47.26 Other spondylosis with radiculopathy, lumbar region (principal); M47.22 Other spondylosis with radiculopathy, cervical region; M16.0 Bilateral primary osteoarthritis of hip; F33.1 Major depressive disorder, recurrent, moderate; F41.1 Generalized anxiety disorder; G89.4 Chronic pain syndrome; M17.9 Osteoarthritis of knee, unspecified; M25.569 Pain in unspecified knee
CPT/HCPCS: 72040; 72100; 73521

== ENCOUNTER 2025-06-04 12:01 | Outpatient (CLI) | payer MEDICARE, MEDICAID, SELFPAY ==
--- NOTE | ~2025-06-04 | XR_ITS ---
Thoracic spine: Clinical Indication: Radiculopathy AP and lateral views were performed. Mild to moderate compression fracture deformity of T12 noted. Mild compression deformity of L1 also n oted. The intervertebral disc spaces appear normal. Paravertebral soft tissues appear normal. Impression: Compression deformities of T12 and L1, age-indeterminate. Reviewed, dictated and finalized at location . Impression: Compression deformities of T12 and L1, age-indeterminate.
--- NOTE | ~2025-06-04 | XR_ITS ---
Lumbosacral Spine: AP and lateral views Clinical History: Pain COMPARISON: 02/17/2025 Findings: The normal lordotic curve is maintained. Mild L1 compression fracture deformity present. No subluxation. There is moderate facet arthropathy throughout the lumbar spine. The sacroiliac joints are normally outlined. Impression: Mild L1 compression fracture, unchanged. Facet arthropathy. Reviewed, dictated and finalized at location . Impression: Mild L1 compression fracture, unchanged. Facet arthropathy.
--- OUTSIDE RECORDS SUMMARY | 2025-06-04 12:15 | XMS_ITS | Encounter Summary ---
Author Organization [facility] Address [address] [place] [address] Care Team Providers Care Network Engineering Advisor Name Role Phone Doretha Quiros MD Primary Care Provider [phone] Encounter Details Date Type Department Care Team (Latest Contact Info) Description 01/28/2008 Outpatient Historical HIS [facility] Doretha Morrison MD [facility] [address] Other and Unspecified Hyperlipidemia Social History Tobacco Use Types Packs/Day Years Used Date Smoking Tobacco: Never Assessed Comments Unknown Sex and Gender Information Value Date Recorded Sex Assigned at Not on file Legal Sex Female 3:37 AM EXTRUDER TENDER Gender Identity Not on file Sexual [...] CDT) CHOL/HDL RATIO 3.6 2.0 - 5.0 [facility] HDL 35(L) 40 - 59 mg/dL [facility] CHOLESTEROL 125 100 - 199 mg/dL [facility] TRIGLYCERIDE 90 10 - 149 mg/dL [facility] LDL CALCULATED 72 <=99 mg/dL [facility] LIPID PANEL COMMENT See Below [facility] Comment: The adult ATP and pediatric NCEP classifications for lipids are available on the [facility] Intranet at: [email or web address] Select: Lab Policies and Procedures,Current Select: Lipid Panel Interpretation Blood specimen (specimen) 01/28/2008 8:25 AM CDT 01/28/2008 8:45 AM CDT Narrative [facility] - 01/29/2008 4:53 PM CDT add on blood in lab Doretha Quiros MD CHEMISTRY ORDERABLES Edited [facility] [address] [place], [place] [address] * (ABNORMAL) COMPREHENSIVE METABOLIC PANEL (01/28/2008 8:25 AM CDT) GLUCOSE 112(H) 65 - 99 mg/dL [facility] ALKALINE PHOSPHATASE 57 35 - 104 U/L [facility] CO2 26 22 - 30 mmol/L [facility] BILIRUBIN TOTAL 0.4 0.2 - 1.0 mg/dL [facility] POTASSIUM 3.6 3.5 - 4.9 mmol/L [facility] TOTAL PROTEIN 7.4 6.3 - 8.6 g/dL [facility] CREATININE 0.74 0.51 - 0.95 mg/dL [facility] AST 21 12 - 32 U/L [facility] BUN 23(H) 6 - 20 mg/dL [facility] CALCIUM 8.9 8.4 - 10.2 mg/dL [facility] ALBUMIN 4.4 3.4 - 4.8 g/dL [facility] CHLORIDE 106 96 - 108 mmol/L [facility] ALT 21 0 - 31 U/L [facility] SODIUM 142 135 - 145 mmol/L [facility] GFR, >60 >=60 mL/min/1. 7 sq meter [facility] GFR >60 >=60 mL/min/1. 7 sq meter [facility] Comment: Estimated GFR rate interpretative information for both Americans and non- Americans is available on the [facility] Intranet at: [email or web address] Select: Lab Policies and Procedures Select: Reference Ranges - GFR Blood specimen (specimen) 01/28/2008 8:25 AM CDT 01/28/2008 8:45 AM CDT us Doretha Quiros MD CHEMISTRY ORDERABLES Edited [facility] [address] [place] [address] * HEMOGLOBIN A1C (01/28/2008 8:25 AM CDT) GLUCOSE, MEAN BLOOD 140 mg/dL [facility] HEMOGLOBIN A1C 6.1 4.1 - 6.1 % of Hgb [facility] Blood specimen (specimen) 01/28/2008 8:25 AM CDT 01/28/2008 8:45 AM CDT us Doretha Quiros MD CHEMISTRY ORDERABLES Final R esult Performing Organization Address City/[facility]/ZIP Co de Phone Number [facility] [address] [place] [address] * TSH (01/28/2008 8:25 AM CDT) TSH 2.48 0.27 - 4.20 uU/mL [facility] Blood specimen (specimen) 01/28/2008 8:25 AM CDT 01/28/2008 8:45 AM CDT us Doretha Quiros MD CHEMISTRY ORDERABLES Final R esult [facility] [address] [place] [address] documented in this encounter Visit Diagnoses Diagnosis Other and unspecified hyperlipidemia documented in this encounter Care Teams Network Engineering Advisor Relationship Specialty Start Date End Date Doretha Quiros MD PCP - General 11/27/06 12/24/24 NO DME 08/13/18 documented as of this encounter
--- OUTSIDE RECORDS SUMMARY | 2025-06-04 12:15 | XMS_ITS | Encounter Summary ---
Author Organization [facility] Address [address] [place] [address] Care Team Providers Care Door Builder Name Role Phone Doretha Quiros MD Primary Care Provider [phone] Encounter Details Date Type Department Care Team (Late st Contact Info) Description 01/29/2008 Outpatient Historical [facility] Internal Medicine Medical [place] [facility] [address] [facility] [address] [address] Doretha Quiros MD [address] [place] [address] [address] [place] [address] Social History Tobacco Use Types Packs/Day Years Used Date Smoking Tobacco: Never Assessed Comments Unknown Sex and Gender Information Value Date Recorded Sex Assigned at Not on file Legal Sex Female 3:37 AM FIRE CONTROL TECHNICIAN Gender Identity Not on file Sexual Orientation Not on file documented as of this encounter Plan of Treatment Not on file documented as of this encounter Visit Diagnoses Not on filedocumented in this encounter Care Teams Door Builder Relationship Specialty Start Date End Date Doretha Quiros MD PCP - General 11/27/06 12/24/24 NO DME 08/13/18 documented as of this encounter
--- OUTSIDE RECORDS SUMMARY | 2025-06-04 12:15 | XMS_ITS | Encounter Summary ---
Author Organization [facility] Address [address] [place] [address] Care Team Providers Care Auger Supervisor Name Role Phone Doretha Quiros MD Primary Care Provider [phone] Encounter Details Date Type Department Care Team (Late st Contact Info) Description 01/29/2008 Orders Only [facility] Internal Medicine Medical [place] A [facility] [address] [place] [phone] Nikos Recinos MD [address] [place] [address] [address] [place] [address] Social History Tobacco Use Types Packs/Day Years Used Date Smoking Tobacco: Never Assessed Comments Unknown Sex and Gender Information Value Date Recorded Sex Assigned at Not on file Legal Sex Female 3:37 AM CADD INSTRUCTOR Gender Identity Not on file Sexual Orientation Not on file documented as of this encounter Plan of Treatment Not on file documented as of this encounter Visit Diagnoses Not on filedocumented in this encounter Care Teams Auger Supervisor Relationship Specialty Start Date End Date Doretha Quiros MD PCP - General 11/27/06 12/24/24 NO DME 08/13/18 documented as of this encounter
--- OUTSIDE RECORDS SUMMARY | 2025-06-04 12:15 | XMS_ITS | Clinical Summary ---
Author Organization [facility] Address [address] [place] [address] Care Team Providers Care Lockstitch Lining Maker Name Role Phone Doretha Quiros MD Primary Care Provider [phone] Social History Tobacco Use Types Packs/Day Years [...] Td Vaccines ( 1 - Tdap) 1967 Pneumococcal Vaccine: 50+ Ye ars (1 of 1 - PCV) 1998 Zoster Vaccines (1 of 2) 1998 Annual Medicare Wellness Visit 2013 Dexa Scan (General) 2013 RSV Immunization or 60+ Years (1 [...] patient's age to complete this topic Insurance [facility] Care Teams Lockstitch Lining Maker Relationship Specialty Start Date End Date Doretha Quiros MD PCP - General INTERNAL MEDICINE 11/20/22
--- OUTSIDE RECORDS SUMMARY | 2025-06-04 12:15 | XMS_ITS | Encounter Summary ---
Author Organization [facility] Address [address] [place] [address] Care Team Providers Care Sanitation Lead Name Role Phone Doretha Quiros MD Primary Care Provider [phone] Encounter Details Date Type Department Care Team (Late st Contact Info) Description 01/29/2008 Outpatient Historical [facility] Internal Medicine Medical [place] [facility] [address] [address] Doretha Quiros MD [address] [place] [address] [address] [place] [address] Social History Tobacco Use Types Packs/Day Years Used Date Smoking Tobacco: Never Assessed Comments Unknown Sex and Gender Information Value Date Recorded Sex Assigned at Not on file Legal Sex Female 3:37 AM CAR WASH MANAGER Gender Identity Not on file Sexual Orientation Not on file documented as of this encounter Plan of Treatment Not on file documented as of this encounter Visit Diagnoses Not on filedocumented in this encounter Care Teams Sanitation Lead Relationship Specialty Start Date End Date Doretha Quiros MD PCP - General 11/27/06 12/24/24 NO DME 08/13/18 documented as of this encounter
--- OUTSIDE RECORDS SUMMARY | 2025-06-04 12:16 | XMS_ITS | Encounter Summary ---
Author Organization [facility] Address [address] [place] [address] Care Team Providers Care Seed Cone Picker Name Role Phone Doretha Quiros MD Primary Care Provider [phone] Encounter Details Date Type Department Care Team (Late st Contact Info) Description 12/01/2005 Outpatient Historical [facility] Internal Medicine Medical [place] [facility] [address] [facility] [address] [address] Doretha Quiros MD [facility]5 [facility] [address] [place] [address] Social History Tobacco Use Types Packs/Day Years Used Date Smoking Tobacco: Never Assessed Comments Unknown Sex and Gender Information Value Date Recorded Sex Assigned at Not on file Legal Sex Female 3:37 AM INVESTMENT REPRESENTATIVE Gender Identity Not on file Sexual Orientation Not on file documented as of this encounter Last Filed Vital Signs Vital Sign Reading Time Taken Comments Blood Pressure 140/78 12/01/2005 9:00 AM INVESTMENT REPRESENTATIVE Pulse 72 12/01/2005 9:00 AM INVESTMENT REPRESENTATIVE Temperature 36.6 C (97.8 F) 12/01/2005 9:00 AM INVESTMENT REPRESENTATIVE Respiratory Rate - - Oxygen Saturation - - Inhaled Oxygen Concentration - - Weight 90.7 kg (200 lb) 12/01/2005 9:00 AM INVESTMENT REPRESENTATIVE Height - - Body Mass Index - - documented in this encounter Plan of Treatment Not on file documented as of this encounter Visit Diagnoses Not on filedocumented in this encounter Care Teams Seed Cone Picker Relationship Specialty Start Date End Date Doretha Quiros MD PCP - General 11/27/06 12/24/24 NO DME 08/13/18 documented as of this encounter
--- OUTSIDE RECORDS SUMMARY | 2025-06-04 12:16 | XMS_ITS | Encounter Summary ---
Author Organization [facility] Address [address] [place] [address] Care Team Providers Care I&C Technician Name Role Phone Makr Cevallos MD Primary Care Provider [phone] Encounter Details Date Type Department Care Team (Latest Contact Info) Description 12/15/2008 Outpatient Historical HIS [facility] Mark Morrison MD [facility] [address] Other Screening Mammogram Social History Tobacco Use Types Packs/Day Years Used Date Smoking Tobacco: Never Alcohol Use Standard Drinks/Week Comments Not Asked 0 (1 standard drink = 0.6 oz pur e alcohol) Comments No Sex and Gender Information Value Date Recorded Sex Assigned at Not on file Legal Sex Female 3:37 AM PLYWOOD PATCHER Gender Identity Not on file Sexual Orientation Not on file documented as of this encounter Plan of Treatment Not on file documented as of this encounter Procedures Procedure Name Priority Date/Time Associated Diagnosis Comments MAMMO SCREEN BILAT W OR WO CAD Routine 12/15/2008 9:00 AM PLYWOOD PATCHER documented in this encounter Results * MAMMO DIGITAL SCREEN BILAT (12/15/2008 9:00 AM PLYWOOD PATCHER) Anatomical Region Laterality Modality Breast Bilateral Other 12/15/2008 9:00 AM PLYWOOD PATCHER Narrative 12/15/2008 9:46 AM PLYWOOD PATCHER [address] [address] Admit Date: 12/15/2008 YESENIA REILLY Sex: F Admit Prov: MARK CEVALLOS Date: 1950 Primary Care Prov: MARK CEVALLOS CMRN: [id number] Room: Carlita N: [address] [place] [address] IMAGING SERVICES Ordering Prov: MARK CEVALLOS Accession Number: [id number] Interpretation DIGITAL SCREENING MAMMOGRAM WITH COMPUTER-ASSISTED DIAGNOSIS [...] CXZ Procedure Note Kierra Sawyer - 12/15/2008 [facility] [address] [place] [address] Admit Date: 12/15/2008 YESENIA REILLY Sex: F Admit Prov: MARK CEVALLOS Date: 1950 Primary Care Prov: MARK CEVALLOS CMRN: [id number] [facility] [address] [place] [address] IMAGING SERVICES Ordering Prov: MARK CEVALLOS Interpretation [...] mammogram documented in this encounter Care Teams I&C Technician Relationship Specialty Start Date End Date Mark Cevallos MD PCP - General 11/27/06 12/24/24 NO DME 08/13/18 documented as of this encounter
--- OUTSIDE RECORDS SUMMARY | 2025-06-04 12:16 | XMS_ITS | Encounter Summary ---
Author Organization [facility] Address [address] [place] [address] Care Team Providers Care Theology Teacher Name Role Phone Doretha Quiros MD Primary Care Provider [phone] Encounter Details Date Type Department Care Team (Late st Contact Info) Description 07/06/2007 Outpatient Historical [facility] Internal Medicine Medical [place] [facility] [address] [facility] [address] [address] Doretha Quiros MD [address] [place] [address] [address] [place] [address] Social History Tobacco Use Types Packs/Day Years Used Date Smoking Tobacco: Never Assessed Comments Unknown Sex and Gender Information Value Date Recorded Sex Assigned at Not on file Legal Sex Female 3:37 AM NATUROPATHIC 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
--- OUTSIDE RECORDS SUMMARY | 2025-06-04 12:16 | XMS_ITS | Encounter Summary ---
Author Organization [employer] Address [address] [place] [address] Care Team Providers Care Glove Stitcher Name Role Phone Doretha Quiros MD Primary Care Provider [phone] Encounter Details Date Type Department Care Team (Late st Contact Info) Description 02/28/2018 Chart Note [facility] Radiation Therapy [address] [place] [address] [place] [address] [place] [address] Social History Tobacco Use Types Packs/Day Years Used Date Smoking Tobacco: Never Smokeless Tobacco: Never Alcohol Use Standard Drinks/Week Comments No 0 (1 standard drink = 0.6 oz pur e alcohol) Comments No Sex and Gender Information Value Date Recorded Sex Assigned at Not on file Legal Sex Female 3:37 AM CORRECTIONAL CASEWORK SPECIALIST Gender Identity Not on file Sexual [...] Total Score: 2 01/19/20 18 10:00 AM CORRECTIONAL CASEWORK SPECIALIST documented as of this encounter Care Teams Glove Stitcher Relationship Specialty Start Date End Date Doretha Quiros MD PCP - General 11/27/06 12/24/24 NO DME 08/13/18 documented as of this encounter
--- OUTSIDE RECORDS SUMMARY | 2025-06-04 12:16 | XMS_ITS | Encounter Summary ---
Author Organization [facility] Address [address] [place] [address] Care Team Providers Care Line Patroller Name Role Phone Doretha Quiros MD Primary Care Provider [phone] Reason for Visit * Reason Comments Medication Refill Encounter Details Date Type Department Care Team (Late st Contact Info) Description 05/20/2018 Refill [facility] Internal Medicine Medical [place] [facility] [address] [facility] [address] [address] Leigha Long, ANP [address] [place] [address] Gastroesophageal reflux disease without esophagitis; Essential hypertension Social History Tobacco Use Types Packs/Day Years Used Date Smoking Tobacco: Never Smokeless Tobacco: Never Alcohol Use Standard Drinks/Week Comments No 0 (1 standard drink = 0.6 oz pur e alcohol) Comments No Sex and Gender Information Value Date Recorded Sex Assigned at Not on file Legal Sex Female 3:37 AM DIRECTOR BUSINESS Gender Identity Not on file Sexual Orientation [...] Total Score: 2 01/19/20 18 10:00 AM DIRECTOR BUSINESS documented as of this encounter Care Teams Line Patroller Relationship Specialty Start Date End Date Doretha Quiros MD PCP - General 11/27/06 12/24/24 NO DME 08/13/18 documented as of this encounter
--- OUTSIDE RECORDS SUMMARY | 2025-06-04 12:16 | XMS_ITS | Encounter Summary ---
Author Organization [facility] Address [address] [place] [address] Care Team Providers Care School Psychology Professor Name Role Phone Doretha Quiros MD Primary Care Provider [phone] Encounter Details Date Type Department Care Team (Latest Contact Info) Description 09/09/2008 Outpatient Historical HIS [facility] Doretha Morrison MD [address] [place] [address] Restless Legs Syndrome (RLS) Social History Tobacco Use Types Packs/Day Years Used Date Smoking Tobacco: Never Assessed Comments No Sex and Gender Information Value Date Recorded Sex Assigned at Not on file Legal Sex Female 3:37 AM SYSTEM CONTROLLER Gender Identity Not on file Sexual Orientation Not on file documented as of this encounter Plan of Treatment Not on file documented as of this encounter Visit Diagnoses Diagnosis Restless legs syndrome (RLS) documented in this encounter Care Teams School Psychology Professor Relationship Specialty Start Date End Date Doretha Quiros MD PCP - General 11/27/06 12/24/24 NO DME 08/13/18 documented as of this encounter
--- OUTSIDE RECORDS SUMMARY | 2025-06-04 12:16 | XMS_ITS | Encounter Summary ---
Author Organization [facility] Address [address] [place] [address] Care Team Providers Care Manager Aviation Name Role Phone Doretha Quiros MD Primary Care Provider [phone] Encounter Details Date Type Department Care Team (Late st Contact Info) Description 06/17/2008 Outpatient Historical [facility] Iveth Cool MD [address] [place] [address] [place] [address] Social History Tobacco Use Types Packs/Day Years Used Date Smoking Tobacco: Never Assessed Comments Unknown Sex and Gender Information Value Date Recorded Sex Assigned at Not on file Legal Sex Female 3:37 AM LINING PARTS SEWER Gender Identity Not on file Sexual Orientation Not on file documented as of this encounter Plan of Treatment Not on file documented as of this encounter Procedures Procedure Name Priority Date/Time Associated Diagnosis Comments PATHOLOGY Routine 06/17/2008 3:18 PM CDT documented in this encounter Results * PATHOLOGY (06/17/2008 3:18 PM CDT) FINAL REPORT [address] [address] Patient: YESENIA REILLY : 1950 Procedure Date: 06/17/2008 Accession Date: 06/17/2008 Case No: [id number] Ordering Dr: IVETH COOL Case types AW, BW, FW, NW and SH are performed by [facility], [place], [place] SURGICAL PATHOLOGY & NON-GYNECOLOGIC CYTOPATHOLOGY REPORT DIAGNOSIS STOMACH, BIOPSY: - MILDLY ACTIVE CHRONIC GASTRITIS. Specimen Description: Gastric biopsy. Operative Procedure: Colonoscopy. Patient Information/History/Di agnosis: Gastritis. Rule out H. pylori infection. Duodenal ulcer. Gross: Received in one container labeled Yesenia Reilly., gastric biopsy are three briggs tissue fragments ranging from 0.2 to 0.4 cm in greatest dimension, which are submitted in block A1. [facility] 06.17.2008 07:03 pm Microscopic: The slides are labeled [id number], Yesenia Reilly. Sections of the gastric biopsy show [...] performance characteristic determined by [facility]. It has not been cleared or approved by the U.S. Food and Drug Administration. The FDA has determined that such clearance or approval is not necessary. The test is used for clinical purpose. It should not be regarded as investigational or for research. This laboratory is certified to perform high complexity clinical testing. /[facility] 06.18.2008 01:26 pm Staging Form: No. ELECTRONIC SIGNATURE FOR JAEL BRAVO MD- 06/18/08 03:30 pm INTERFACE SYSTEM 06/17/2008 3:18 PM CDT us Iveth Cool MD PATHOLOGY/CYTOLOGY ORDERABLE S Final Result INTERFACE SYSTEM Refer to clinic/hospital department documented in this encounter Visit Diagnoses Not on filedocumented in this encounter Care Teams Manager Aviation Relationship Specialty Start Date End Date Doretha Quiros MD PCP - General 11/27/06 12/24/24 NO DME 08/13/18 documented as of this encounter
--- OUTSIDE RECORDS SUMMARY | 2025-06-04 12:16 | XMS_ITS | Encounter Summary ---
Author Organization [facility] Address [address] [place] [address] Care Team Providers Care Sprigger Name Role Phone Doretha Quiros MD Primary Care Provider [phone] Encounter Details Date Type Department Care Team (Late st Contact Info) Description 06/10/[address] [facility] Internal Medicine Medical [place] [facility] [place] [address] [facility] [address] [address] Jace Greenwood MD [address] [place], [place] [id number] Social History Tobacco Use Types Packs/Day Years Used Date Smoking Tobacco: Never Assessed Comments Unknown Sex and Gender Information Value Date Recorded Sex Assigned at Not on file Legal Sex Female 3:37 AM COOKIE PADDER Gender Identity Not on file Sexual Orientation Not on file documented as of this encounter Plan of Treatment Not on file documented as of this encounter Visit Diagnoses Not on filedocumented in this encounter Care Teams Sprigger Relationship Specialty Start Date End Date Doretha Quiros MD PCP - General 11/27/06 12/24/24 NO DME 08/13/18 documented as of this encounter
--- OUTSIDE RECORDS SUMMARY | 2025-06-04 12:16 | XMS_ITS | Encounter Summary ---
Author Organization [facility] Address [address] [place] [address] Care Team Providers Care Mill Controller Name Role Phone Doretha Quiros MD Primary Care Provider [phone] Reason for Visit * Reason Comments Medication Refill Encounter Details Date Type Department Care Team (Late st Contact Info) Description 03/09/2020 Refill [facility] Internal Medicine Medical [facility] [address] [facility] [address] [address] Doretha Quiros MD [facility] [address] [place] [address] Essential hypertension; Primary insomnia Social History Tobacco Use Types Packs/Day Years Used Date Smoking Tobacco: Never Smokeless Tobacco: Never Alcohol Use Standard Drinks/Week Comments No 0 (1 standard drink = 0.6 oz pur e alcohol) Comments No Sex and Gender Information Value Date Recorded Sex Assigned at Not on file Legal Sex Female 3:37 AM CUSTOMER FACILITIES SUPERVISOR Gender Identity Not on file Sexual [...] documented as of this encounter Care Teams Mill Controller Relationship Specialty Start Date End Date Doretha Quiros MD PCP - General 11/27/06 12/24/24 NO DME 08/13/18 documented as of this encounter
--- OUTSIDE RECORDS SUMMARY | 2025-06-04 12:16 | XMS_ITS | Encounter Summary ---
Author Organization [facility] Address [address] [place] [address] Care Team Providers Care Office Secretary Name Role Phone Mark Cevallos MD Primary Care Provider [phone] Encounter Details Date Type Department Care Team (Late st Contact Info) Description 02/11/2008 Outpatient Historical [facility] Mark Cevallos MD [facility] [address] Abdominal Pain, Right Upper Quadrant Social History Tobacco Use Types Packs/Day Years Used Date Smoking Tobacco: Never Assessed Comments Unknown Sex and Gender Information Value Date Recorded Sex Assigned at Not on file Legal Sex Female 3:37 AM CREW TRUCK DRIVER Gender Identity Not on file Sexual Orientation [...] AM CDT Narrative 02/11/2008 11:48 AM CDT [address] [address] Admit Date: 02/11/2008 YESENIA REILLY Sex: F Admit Prov: MARK CEVALLOS Date: 1950 Primary Care Prov: MARK CEVALLOS CMRN: [id number] [facility] [address] [place] [address] IMAGING SERVICES Ordering Prov: N/A Accession Number: [id number] Interpretation Esophagram barium swallow 02/11/2008 Clinical history: [...] AMK Procedure Note Provider, Historical - 02/11/2008 [facility] [address] [place], [place] [address] Admit Date: 02/11/2008 YESENIA REILLY Sex: F Admit Prov: MARK CEVALLOS Date: 1950 Primary Care Prov: MARK CEVALLOS CMRN: [id number] [facility] [address] [place] [address] IMAGING SERVICES Ordering Prov: N/A Interpretation Esophagram [...] quadrant documented in this encounter Care Teams Office Secretary Relationship Specialty Start Date End Date Mark Cevallos MD PCP - General 11/27/06 12/24/24 NO DME 08/13/18 documented as of this encounter
--- OUTSIDE RECORDS SUMMARY | 2025-06-04 12:16 | XMS_ITS | Continuity of Care Document ---
Author Organization [employer] Address [address] [address] Insurance Providers Payer Plan Claims Address Claims Phone Policy Number Group Number Relation Employer Guarantor Name Guarantor Guarantor Address Guarantor Phone [facility] [address] [address], [place] [address] tel:[phone] Self Daniela Wells [address] [place] [address] MANAG ED MEDIC ARE ADV [address] [address], [place] [address] tel:[phone] Self Daniela Wells [address] [place] [address] AARP Medic are Compl ete HMO-P OS E2 [address] [address], [place] [id number] Self Daniela Wells [address] [place] [address] Problems Unknown Problems Results Test Result Date/Time Value / Unit Interp. Refere [facility] Range Lab Report Daniela Wells.pdf Allergies, adverse reactions, alerts No known allergies and adverse reactions Medications No administered medications reported Vital Signs No vital signs reported Social History No smoking Hx information available
--- OUTSIDE RECORDS SUMMARY | 2025-06-04 12:16 | XMS_ITS | Encounter Summary ---
Author Organization [facility] Address [address] [place] [address] Care Team Providers Care Torpedo Man Name Role Phone Doretha Quiros MD Primary Care Provider [phone] Encounter Details Date Type Department Care Team (Late st Contact Info) Description 03/24/2006 Outpatient Historical [facility] Internal Medicine Medical [place] A [facility] [address] [facility] [address] [address] Doretha Quiros MD [address] [place] [address] [address] [place] [address] Social History Tobacco Use Types Packs/Day Years Used Date Smoking Tobacco: Never Assessed Comments Unknown Sex and Gender Information Value Date Recorded Sex Assigned at Not on file Legal Sex Female 3:37 AM 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
--- OUTSIDE RECORDS SUMMARY | 2025-06-04 12:16 | XMS_ITS | Encounter Summary ---
Author Organization [facility] Address [address] [place] [address] Care Team Providers Care Byproducts Extractor Name Role Phone Doretha Quiros MD Primary Care Provider [phone] Encounter Details Date Type Department Care Team (Late st Contact Info) Description 07/25/2006 Orders Only [facility] Internal Medicine Medical [place] [facility] [address] [facility] [address] [address] Doretha Quiros MD [address] [place] [address] [address] [place] [address] Social History Tobacco Use Types Packs/Day Years Used Date Smoking Tobacco: Never Assessed Comments Unknown Sex and Gender Information Value Date Recorded Sex Assigned at Not on file Legal Sex Female 3:37 AM DETAIL MAKER AND FITTER Gender Identity Not on file Sexual Orientation Not on file documented as of this encounter Progress Notes * Doretha Quiros MD - 09/02/2008 4:46 PM CDT TIME:09:05 am PATIENT`S HOME PHONE: PATIENT`S WORK PHONE: PATIENT`S INSURANCE: [facility] [employer] [facility] WHO TOOK THE CALL: Angela Mckeon I [...] on filedocumented in this encounter Care Teams Byproducts Extractor Relationship Specialty Start Date End Date Doretha Quiros MD PCP - General 11/27/06 12/24/24 NO DME 08/13/18 documented as of this encounter
--- OUTSIDE RECORDS SUMMARY | 2025-06-04 12:16 | XMS_ITS | Encounter Summary ---
Author Organization [facility] Address [address] [place] [address] Care Team Providers Care Metal Furrer Name Role Phone Doretha Quiros MD Primary Care Provider [phone] Encounter Details Date Type Department Care Team (Late st Contact Info) Description 03/24/2006 Outpatient Historical [facility] Internal Medicine Medical [place] A [facility] [address] [facility] [address] [address] Doretha Quiros MD [address] [place] [address] [address] [place] [address] Social History Tobacco Use Types Packs/Day Years Used Date Smoking Tobacco: Never Assessed Comments Unknown Sex and Gender Information Value Date Recorded Sex Assigned at Not on file Legal Sex Female 3:37 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
--- OUTSIDE RECORDS SUMMARY | 2025-06-04 12:16 | XMS_ITS | Encounter Summary ---
Author Organization [facility] Address [address] [place] [address] Care Team Providers Care Contact Officer Name Role Phone Doretha Quiros MD Primary Care Provider [phone] Encounter Details Date Type Department Care Team (Late st Contact Info) Description 12/04/2006 Outpatient Historical [facility] Internal Medicine Medical [place] A [facility] [address] [address] [address] Doretha Quiros MD [address] [place] [address] [address] [place] [address] Social History Tobacco Use Types Packs/Day Years Used Date Smoking Tobacco: Never Assessed Comments Unknown Sex and Gender Information Value Date Recorded Sex Assigned at Not on file Legal Sex Female 3:37 AM SET UP MECHANIC STAMPING MACHINES Gender Identity Not on file Sexual Orientation Not on file documented as of this encounter Last Filed Vital Signs Vital Sign Reading Time Taken Comments Blood Pressure 140/70 12/04/2006 10:15 AM SET UP MECHANIC STAMPING MACHINES Pulse 76 12/04/2006 10:15 AM SET UP MECHANIC STAMPING MACHINES Temperature 36.4 C (97.6 F) 12/04/2006 10:15 AM SET UP MECHANIC STAMPING MACHINES Respiratory Rate - - Oxygen Saturation - - Inhaled Oxygen Concentration - - Weight 90.7 kg (200 lb) 12/04/2006 10:15 AM SET UP MECHANIC STAMPING MACHINES Height - - Body Mass Index 36.58 07/18/2006 1:00 PM CDT documented in this encounter Plan of Treatment Not on file documented as of this encounter Visit Diagnoses Not on filedocumented in this encounter Care Teams Contact Officer Relationship Specialty Start Date End Date Doretha Quiros MD PCP - General 11/27/06 12/24/24 NO DME 08/13/18 documented as of this encounter
--- OUTSIDE RECORDS SUMMARY | 2025-06-04 12:16 | XMS_ITS | Encounter Summary ---
Author Organization [facility] Address [address] [place] [address] Care Team Providers Care Cellophaner Name Role Phone Doretha Quiros MD Primary Care Provider [phone] Encounter Details Date Type Department Care Team (Late st Contact Info) Description 08/19/2005 Outpatient Historical [facility] Internal Medicine Medical [place] [facility] [address] [facility] [address] [address] Doretha Quiros MD [address] [place] [address] 100 [place] [address] Social History Tobacco Use Types Packs/Day Years Used Date Smoking Tobacco: Never Assessed Comments Unknown Sex and Gender Information Value Date Recorded Sex Assigned at Not on file Legal Sex Female 3:37 AM SECURITY AGENT Gender Identity Not on file Sexual Orientation Not on file documented as of this encounter Plan of Treatment Not on file documented as of this encounter Visit Diagnoses Not on filedocumented in this encounter Care Teams Cellophaner Relationship Specialty Start Date End Date Doretha Quiros MD PCP - General 11/27/06 12/24/24 NO DME 08/13/18 documented as of this encounter
--- OUTSIDE RECORDS SUMMARY | 2025-06-04 12:16 | XMS_ITS | Encounter Summary ---
Author Organization [facility] Address [address] [place] [address] Care Team Providers Care Clinical Nursing Professor Name Role Phone Doretha Quiros MD Primary Care Provider [phone] Encounter Details Date Type Department Care Team (Late st Contact Info) Description 08/19/2005 Outpatient Historical [facility] Internal Medicine Medical [place] A [facility] [address] [facility] [address] [address] Doretha Quiros MD [address] [place] [address] [address] [place] [address] Social History Tobacco Use Types Packs/Day Years Used Date Smoking Tobacco: Never Assessed Comments Unknown Sex and Gender Information Value Date Recorded Sex Assigned at Not on file Legal Sex Female 3:37 AM CEMENT SACK BREAKER Gender Identity Not on file Sexual Orientation Not on file documented as of this encounter Plan of Treatment Not on file documented as of this encounter Visit Diagnoses Not on filedocumented in this encounter Care Teams Clinical Nursing Professor Relationship Specialty Start Date End Date Doretha Quiros MD PCP - General 11/27/06 12/24/24 NO DME 08/13/18 documented as of this encounter
--- OUTSIDE RECORDS SUMMARY | 2025-06-04 12:16 | XMS_ITS | Encounter Summary ---
Author Organization [facility] Address [address] [place] [address] Care Team Providers Care Chicle Grinder Feeder Name Role Phone Doretha Quiros MD Primary Care Provider [phone] Encounter Details Date Type Department Care Team (Latest Contact Info) Description 11/28/2007 Outpatient Historical [facility] Doretha Morrison MD [address] [place] [address] Other Screening Mammogram Social History Tobacco Use Types Packs/Day Years Used Date Smoking Tobacco: Never Assessed Comments Unknown Sex and Gender Information Value Date Recorded Sex Assigned at Not on file Legal Sex Female 3:37 AM WEIGHTS AND 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
--- OUTSIDE RECORDS SUMMARY | 2025-06-04 12:16 | XMS_ITS | Encounter Summary ---
Author Organization [facility] Address [address] [place] [address] Care Team Providers Care Senior Net Developer Architect Name Role Phone Doretha Quiros MD Primary Care Provider [phone] Encounter Details Date Type Department Care Team (Latest Contact Info) Description 05/17/2006 Outpatient Historical [facility] RUDDY Lu, Ирина Lee MD NO ADDRESS ON FILE Abnormal Mammogram, Unspecified (Primary Dx) Social History Tobacco Use Types Packs/Day Years Used Date Smoking Tobacco: Never Assessed Comments Unknown Sex and Gender Information Value Date Recorded Sex Assigned at Not on file Legal Sex Female 3:37 AM GENERAL LABOR Gender Identity Not on file Sexual Orientation Not on file documented as of this encounter Plan of Treatment Not on file documented as of this encounter Visit Diagnoses Diagnosis Abnormal mammogram, unspecified- Primary documented in this encounter Care Teams Senior Net Developer Architect Relationship Specialty Start Date End Date Doretha Quiros MD PCP - General 11/27/06 12/24/24 NO DME 08/13/18 documented as of this encounter
--- OUTSIDE RECORDS SUMMARY | 2025-06-04 12:16 | XMS_ITS | Encounter Summary ---
Author Organization [facility] Address 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
--- OUTSIDE RECORDS SUMMARY | 2025-06-04 12:16 | XMS_ITS | Encounter Summary ---
Author Organization [employer] Address [address] [place] [address] Care Team Providers Care Chemistry Specialist Name Role Phone Doretha Quiros MD Primary Care Provider [phone] Encounter Details Date Type Department Care Team (Latest Contact Info) Description 12/19/2006 Outpatient Historical [facility] Doretha Quiros MD [address] [place] [address] Observation for Other Specified Suspected Conditions (Primary Dx) Social History Tobacco Use Types Packs/Day Years Used Date Smoking Tobacco: Never Assessed Comments Unknown Sex and Gender Information Value Date Recorded Sex Assigned at Not on file Legal Sex Female 3:37 AM SCREEN PRINTING PRESS OPERATOR Gender Identity Not on file Sexual Orientation Not on file documented as of this encounter Plan of Treatment Not on file documented as of this encounter Visit Diagnoses Diagnosis Observation for other specified suspected conditions- Primary documented in this encounter Care Teams Chemistry Specialist Relationship Specialty Start Date End Date Doretha Quiros MD PCP - General 11/27/06 12/24/24 NO DME 08/13/18 documented as of this encounter
--- OUTSIDE RECORDS SUMMARY | 2025-06-04 12:16 | XMS_ITS | Encounter Summary ---
Author Organization [facility] Address [address] [place] [address] Care Team Providers Care Wire Sawyer Name Role Phone Doretha Quiros MD Primary Care Provider [phone] Encounter Details Date Type Department Care Team (Late st Contact Info) Description 12/01/2005 Orders Only [facility] Internal Medicine Medical [place] A [facility] [address] [facility] [address] [address] Doretha Quiros MD [facility]5 [facility] [address] [place] [address] Social History Tobacco Use Types Packs/Day Years Used Date Smoking Tobacco: Never Assessed Comments Unknown Sex and Gender Information Value Date Recorded Sex Assigned at Not on file Legal Sex Female 3:37 AM BIZTALK ARCHITECT Gender Identity Not on file Sexual Orientation [...] but w/ symptoms LAB ORDERS: Order number: [id number] Test Ordered: TSH W/REFLEX TO [id number] Order number: [id number] Test Ordered: THYROID PEROXIDASE ANTIBODIES 5081 401.9-HYPERTENSION, [...] liver by bx- LAB ORDERS: Order number: [id number] Test Ordered: COMPREHENSIVE METABOLIC PANEL 62272 Order number: [id number] Test Ordered: FERRITIN 457 780.52-INSOMNIA some signs of MARY ANN LAB ORDERS: Order number: [id number] Test Ordered: SLEEP STUDY SPECIALTY REFERRAL: GENERAL SURGERY Dr. Ирина Lu ph: [phone]. HEALTH MAINTENANCE: LAST PAP DATE: 09.24. LAST MAMMOGRAM DATE: 09.24. LAST DATE COLONOSCOPY: 10.21. ( 10y) Electronically Signed by: Doretha Quiros MD on November documented in this encounter Plan of Treatment Not on file documented as of this encounter Visit Diagnoses Not on filedocumented in this encounter Care Teams Wire Sawyer Relationship Specialty Start Date End Date Doretha Quiros MD PCP - General 11/27/06 12/24/24 NO DME 08/13/18 documented as of this encounter
--- OUTSIDE RECORDS SUMMARY | 2025-06-04 12:16 | XMS_ITS | Encounter Summary ---
Author Organization [facility] Address [address] [place] [address] Care Team Providers Care Mechanical Drawing Teacher Name Role Phone Doretha Quiros MD Primary Care Provider [phone] Encounter Details Date Type Department Care Team (Latest Contact Info) Description 07/06/2007 Outpatient Historical [facility] Internal Medicine Medical [place] A [facility] [address] [facility] [address] [address] Doretha Quiros MD [address] [place] [address] 100 [place] [address] Cellulitis and Abscess of Upper Arm and Forearm (Primary Dx) Social History Tobacco Use Types Packs/Day Years Used Date Smoking Tobacco: Never Assessed Comments Unknown Sex and Gender Information Value Date Recorded Sex Assigned at Not on file Legal Sex Female 3:37 AM SMOKING PIPE COATER Gender Identity Not on file Sexual Orientation Not on file documented as of this encounter Plan of Treatment Not on file documented as of this encounter Visit Diagnoses Diagnosis Cellulitis and abscess of upper arm and forearm- Primary documented in this encounter Care Teams Mechanical Drawing Teacher Relationship Specialty Start Date End Date Doretha Quiros MD PCP - General 11/27/06 12/24/24 NO DME 08/13/18 documented as of this encounter
--- OUTSIDE RECORDS SUMMARY | 2025-06-04 12:16 | XMS_ITS | Patient Health Record ---
Author Organization [employer] Address [address] [place] [address] [address] Care Team Providers Care Superintendent Container Terminal Name Role Phone Doretha Quiros MD Primary Care Provider Unavail able Reason For Referral No Information Plan Of Treatment No Information Insurance Providers Payer Name Payer Address Payer Phone Subscriber Number Group Number Insured Name Patient Relationship to Insured Coverage Start Date Coverage End Date [employer] Medicare Complete Hmo-pos E2 [address] [address] [place] [address] [phone] [id number] Daniela Wells Self - patient is the insured 4
--- OUTSIDE RECORDS SUMMARY | 2025-06-04 12:16 | XMS_ITS | Encounter Summary ---
Author Organization [facility] Address [address] [place] [address] Care Team Providers Care Cart Driver Name Role Phone Doretha Quiros MD Primary Care Provider [phone] Encounter Details Date Type Department Care Team (Late st Contact Info) Description 01/29/2007 Outpatient Historical [facility] Internal Medicine Medical [place] [facility] [address] [address] Doretha Quiros MD [address] [place] [address] [address] [place] [address] Social History Tobacco Use Types Packs/Day Years Used Date Smoking Tobacco: Never Assessed Comments Unknown Sex and Gender Information Value Date Recorded Sex Assigned at Not on file Legal Sex Female 3:37 AM CRM COORDINATOR Gender Identity Not on file Sexual Orientation [...] on filedocumented in this encounter Care Teams Cart Driver Relationship Specialty Start Date End Date Doretha Quiros MD PCP - General 11/27/06 12/24/24 NO DME 08/13/18 documented as of this encounter
--- OUTSIDE RECORDS SUMMARY | 2025-06-04 12:16 | XMS_ITS | Encounter Summary ---
Author Organization [facility] Address [address] [place] [address] Care Team Providers Care Weapons Designer Name Role Phone Doretha Quiros MD Primary Care Provider [phone] Encounter Details Date Type Department Care Team (Latest Contact Info) Description 11/27/2006 Outpatient Historical [facility] RUDDY Lu, Ирина Lee MD NO ADDRESS ON FILE Other Screening Mammogram (Primary Dx) Social History Tobacco Use Types Packs/Day Years Used Date Smoking Tobacco: Never Assessed Comments Unknown Sex and Gender Information Value Date Recorded Sex Assigned at Not on file Legal Sex Female 3:37 AM CRYPTOANALYSIS TEACHER Gender Identity Not on file Sexual Orientation Not on file documented as of this encounter Plan of Treatment Not on file documented as of this encounter Visit Diagnoses Diagnosis Other screening mammogram- Primary documented in this encounter Care Teams Weapons Designer Relationship Specialty Start Date End Date Doretha Quiros MD PCP - General 11/27/06 12/24/24 NO DME 08/13/18 documented as of this encounter
--- OUTSIDE RECORDS SUMMARY | 2025-06-04 12:16 | XMS_ITS | Encounter Summary ---
Author Organization [facility] Address [address] [place] [address] Care Team Providers Care Operator Coating Furnace Name Role Phone Doretha Quiros MD Primary Care Provider [phone] Encounter Details Date Type Department Care Team (Late st Contact Info) Description 07/18/2006 Outpatient Historical [facility] Internal Medicine Medical [place] [facility] [address] [address] Doretha Quiros MD [address] [place] [address] [address] [place] [address] Social History Tobacco Use Types Packs/Day Years Used Date Smoking Tobacco: Never Assessed Comments Unknown Sex and Gender Information Value Date Recorded Sex Assigned at Not on file Legal Sex Female 3:37 AM ROADABILITY 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
--- OUTSIDE RECORDS SUMMARY | 2025-06-04 12:16 | XMS_ITS | Encounter Summary ---
Author Organization [employer] Address [address] [place] [address] Care Team Providers Care Candy Waffle Assembler Name Role Phone Doretha Quiros MD Primary Care Provider [phone] Encounter Details Date Type Department Care Team (Latest Contact Info) Description 12/15/2008 Outpatient Historical [facility], [address] Doretha Quiros MD [address] [place] [address] Routine Gynecological Examination Social History Tobacco Use Types Packs/Day Years Used Date Smoking Tobacco: Never Alcohol Use Standard Drinks/Week Comments Not Asked 0 (1 standard drink = 0.6 oz pur e alcohol) Comments No Sex and Gender Information Value Date Recorded Sex Assigned at Not on file Legal Sex Female 3:37 AM SUBCONTRACT MANAGER Gender Identity Not on file Sexual Orientation Not on file documented as of this encounter Plan of Treatment Not on file documented as of this encounter Procedures Procedure Name Priority Date/Time Associated Diagnosis Comments CERV/VAG CYTOPATH, THIN PREP LYMPHEDEMA THERAPIST AND HPV Routine 12/15/2008 8:45 AM SUBCONTRACT MANAGER documented in this encounter Results * CERV/VAG CYTOPATH, THIN PREP LYMPHEDEMA THERAPIST AND HPV (12/15/2008 8:45 AM SUBCONTRACT MANAGER) SOURCE Information not provided [facility] LAST MENSTRUAL PERIOD Information not provided [facility] HPV HIGH RISK DNA DETECTION NOT DETECTED [facility] Comment: REFERENCE RANGE: NOT DETECTED TESTED FOR HIGH RISK TYPES 16,18,31,33,35,39,45,51,52, 56,58,59,68. THE ANALYTICAL PERFORMANCE CHARACTERISTICS OF THIS ASSAY, WHEN USED TO TEST SUREPATH OR VAGINAL SPECIMENS, HAVE BEEN DETERMINED BY lang[facility]ojin. METHODOLOGY: HYBRID CAPTURE WITH SIGNAL AMPLIFICATION Lab test performed by: langtaojin [place] [address] [employer] [place] [address] JAMILA BALDWIN MD PREV BX: Information not provided [facility] HOME VISIT FIELD CARE MANAGER: LM, CT(ASCP) [facility] Comment: Lab test performed by: [facility] [address] [place] [address] JAMILA BALDWIN MD PAP INTERP Negative for intraepithelial lesion or malignancy. Atrophic pattern; predominantly parabasal cells [facility] REPORT STATUS [facility] PREV PAP: Information not provided [facility] Horse Rancher Pap Comment This Pap test has been evaluated with computer assisted technology. [facility] CLINICAL INFORMATION Information not provided [facility] ADEQUACY: SATISFACTORY FOR EVALUATION [facility] Specimen from uterine cervix (specimen) 12/15/2008 8:45 AM SUBCONTRACT MANAGER 12/16/2008 8:51 AM SUBCONTRACT MANAGER us Doretha Quiros MD PATHOLOGY/CYTOLOGY ORDERABLE S Edited INTERFACE SYSTEM Refer to clinic/hospital department [facility] CLIA# [id number] [address] [facility] [place] [address] documented in this encounter Visit Diagnoses Diagnosis Routine gynecological examination documented in this encounter Care Teams Candy Waffle Assembler Relationship Specialty Start Date End Date Doretha Quiros MD PCP - General 11/27/06 12/24/24 NO DME 08/13/18 documented as of this encounter
--- OUTSIDE RECORDS SUMMARY | 2025-06-04 12:16 | XMS_ITS | Encounter Summary ---
Author Organization [facility] Address [address] [place] [address] Care Team Providers Care Digital Product Manager Name Role Phone Doretha Quiros MD Primary Care Provider [phone] Encounter Details Date Type Department Care Team (Late st Contact Info) Description 07/31/2007 Orders Only [facility] Internal Medicine Medical [place] [facility] [address] [address] Doretha Quiros MD [address] [place] [address] [address] [place] [address] Social History Tobacco Use Types Packs/Day Years Used Date Smoking Tobacco: Never Assessed Comments Unknown Sex and Gender Information Value Date Recorded Sex Assigned at Not on file Legal Sex Female 3:37 AM DEDICATED REGIONAL DRIVER Gender Identity Not on file Sexual Orientation Not on file documented as of this encounter Plan of Treatment Not on file documented as of this encounter Visit Diagnoses Not on filedocumented in this encounter Care Teams Digital Product Manager Relationship Specialty Start Date End Date Doretha Quiros MD PCP - General 11/27/06 12/24/24 NO DME 08/13/18 documented as of this encounter
--- OUTSIDE RECORDS SUMMARY | 2025-06-04 12:16 | XMS_ITS | Encounter Summary ---
Author Organization [facility] Address [address] [place] [address] Care Team Providers Care Marine Engineering Consultant Name Role Phone Doretha Quiros MD Primary Care Provider [phone] Encounter Details Date Type Department Care Team (Late st Contact Info) Description 09/06/2007 Outpatient Historical [facility] Internal Medicine Medical [place] [facility] [address] [address] Jovon Fernandes MD [address] [place] [address] Social History Tobacco Use Types Packs/Day Years Used Date Smoking Tobacco: Never Assessed Comments Unknown Sex and Gender Information Value Date Recorded Sex Assigned at Not on file Legal Sex Female 3:37 AM MENTAL 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
--- OUTSIDE RECORDS SUMMARY | 2025-06-04 12:16 | XMS_ITS | Encounter Summary ---
Author Organization [facility] Address [address] [place] [address] Care Team Providers Care Conference Coordinator Name Role Phone Doretha Quiros MD Primary Care Provider [phone] Encounter Details Date Type Department Care Team (Late st Contact Info) Description 12/04/2006 Orders Only [facility] Internal Medicine Medical [place] [facility] [address] [address] Doretha Quiros MD [address] [place] [address] [address] [place] [address] Social History Tobacco Use Types Packs/Day Years Used Date Smoking Tobacco: Never Assessed Comments Unknown Sex and Gender Information Value Date Recorded Sex Assigned at Not on file Legal Sex Female 3:37 AM 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 ASSESSMENT/PLAN: 244.9-HYPOTHYROIDISM LAB ORDERS: Order number: [id number] Test Ordered: TSH 1720 272.4-HYPERLIPIDEMIA LAB ORDERS: Order number: [id number] Test Ordered: LIPID PANEL 1078 401.9-HYPERTENSION, UNSPECIFIED LAB ORDERS: Order number: [id number] Test Ordered: COMPREHENSIVE METABOLIC PANEL & GFR 1112 790.21-ABNORMAL FASTING BLOOD GLUCOSE LAB ORDERS: Order number: [id number] Test Ordered: HEMOGLOBIN A1C 1814 V72.31-ROUTINE GYNECOLOGICAL EXAMINATION ASSESSMENT: no problems found- will order BMD given family history and see back for check up next month. LAB ORDERS: Order number: [id number] Test Ordered: THINPREP RFX HPV 18198 V76.10-SCREENING FOR CA OF BREAST LAB ORDERS: Order number: [id number] Test Ordered: MAMMOGRAM BI-LATERAL (2 VIEWS) V82.81-SPECIAL SCREENING FOR OTHER CONDITIONS LAB ORDERS: Order number: [id number] Test Ordered: BONE DENSITY (HIP & SPINE) HEALTH MAINTENANCE: LAST PAP DATE: 11/26. LAST MAMMOGRAM DATE: 11/26. RETURN VISIT : Patient instructed to return in 1 month. Electronically Signed by: Doretha Quiros MD on Monday, December 04, 2006 documented in this encounter Plan of Treatment Not on file documented as of this encounter Visit Diagnoses Not on filedocumented in this encounter Care Teams Conference Coordinator Relationship Specialty Start Date End Date Doretha Quiros MD PCP - General 11/27/06 12/24/24 NO DME 08/13/18 documented as of this encounter
--- OUTSIDE RECORDS SUMMARY | 2025-06-04 12:16 | XMS_ITS | Clinical Summary ---
Author Organization [facility] Address [address] [place] [address] Care Team Providers Care School Age Teacher Name Role Phone Doretha Quiros MD Primary Care Provider [phone] Source Comments [facility],non-owned Affiliates and Associated Physician Practices is amultiple site organization consisting of ambulatory clinics and hospital sitesin [place], [place], [place] and [place]. This disclosure is being madepursuant to the Care Everywhere program and may not contain all information available regarding this patient. Last updated 18.[facility] Allergies No known active allergies Medications * Be aware that medications may not be up to date on this document. Alwaysverify current medications with the patient. lisinopril-hydr oCHLOROthiazide (PRINZIDE; ZESTORETIC) 20-12.5 MG tablet 7 Active baclofen (LIORESAL) 10 MG tablet 7 Active raNITIdine (ZANTAC) 150 MG tablet 7 Active omeprazole (PRILOSEC) 20 MG capsule 7 Active HYDROcodone-ivette taminophen (NORCO) 10-325 MG tablet TK 1-2 TS PO Q 4-6 H PRN P 0 8 Active metoprolol succinate XL 24hr (TOPROL XL) 100 MG tablet 8 Active simvastatin (ZOCOR) 40 MG tablet 8 Active traMADol (ULTRAM) 50 MG tablet Take 100 mg by mouth every 6 hours as needed Active Calcium Carbonate-Vit D-Min (CALCIUM 1200 PO) Active amLODIPine (NORVASC) 5 MG tablet 9 Active anastrozole (ARIMIDEX) 1 MG tablet TAKE 1 TABLET BY MOUTH DAILY. START AFTER RADIATION IS COMPLETED.. 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 Grade: IG (NH7) [...] unspecified site Hypercholesteremia 08/19/2005 Prediabetes 08/19/2005 Immunizations Immunization Administration Dates Next Due PNEUMOCOCCAL PPSV23 08/01/2017,12/26/2013 [...] = 0.6 oz pur e alcohol) Comments Unknown Sex and Gender Information Value Date Recorded Sex Assigned at Not on file Legal Sex Female 5:37 PM PRAWN TRAWLER HAND Gender Identity Not on file Sexual Orientation Not on file Last Filed Vital Signs Vital Sign Reading Time Taken Comments Blood Pressure 118/70 02/22/2019 1:36 PM CDT Pulse 60 02/22/2019 1:36 PM CDT Temperature - - Respiratory Rate - - Oxygen Saturation - - Inhaled Oxygen Concentration - - Weight 74.8 kg (165 lb) 02/22/2019 1:36 PM CDT Height 157.5 cm (5' 2) 02/22/2019 1:36 PM CDT Body Mass Index 30.18 02/22/2019 1:36 PM CDT Plan of Treatment Health Maintenance Due Date Last Done Comments BONE DENSITY TESTING 1950 HEPATITIS C SCREENING 11/20/1966 DTAP/TDAP/TD VACCINES (1 - Tdap) 1967 ZOSTER VACCINE (1 of 2) 1998 SCREENING FOR DIABETES 02/01/2022 9, 01/02/2019, 01/02/2019, Additional history exists Respiratory Syncytial Virus (RSV) Vaccine Pt: or over 60 yrs (1 - 1-dose 75+ series) 2023 COVID-19 VACCINE (2023- season) 2024 DEPRESSION SCREENING 11/20/2024 INFLUENZA VACCINE (#1) 2025 PNEUMOCOCCAL VACCINE 50+ Completed 017, 04/22/2015, 12/26/2013 [...] A/C/Y/W VACCINE Aged Out No longer eligible based on patient's age to complete this topic Insurance MANAGED MEDICARE ADV Care Teams School Age Teacher Relationship Specialty Start Date End Date Doretha Quiros MD [address] [place] [address] [facility] - General 03/16/16
--- OUTSIDE RECORDS SUMMARY | 2025-06-04 12:17 | XMS_ITS | Encounter Summary ---
Author Organization [facility] Address [address] [place] [address] Care Team Providers Care Piece Goods Clerk Name Role Phone Doretha Quiros MD Primary Care Provider [phone] Encounter Details Date Type Department Care Team (Latest Contact Info) Description 06/08/2004 Outpatient Historical [facility]UD[facility] [place], Jace Zazueta MD [address] [place] [address] JOINT PAIN-SHLDER (Primary Dx) Social History Tobacco Use Types Packs/Day Years Used Date Smoking Tobacco: Never Assessed Comments Unknown Sex and Gender Information Value Date Recorded Sex Assigned at Not on file Legal Sex Female 3:37 AM PMO MANAGER Gender Identity Not on file Sexual Orientation Not on file documented as of this encounter Plan of Treatment Not on file documented as of this encounter Visit Diagnoses Diagnosis Pain in joint, shoulder region- Primary documented in this encounter Care Teams Piece Goods Clerk Relationship Specialty Start Date End Date Doretha Quiros MD PCP - General 11/27/06 12/24/24 NO DME 08/13/18 documented as of this encounter
--- OUTSIDE RECORDS SUMMARY | 2025-06-04 12:17 | XMS_ITS | Encounter Summary ---
Author Organization [facility] Address [address] [place] [address] Care Team Providers Care Aircraft Worker Name Role Phone Doretha Quiros MD Primary Care Provider [phone] Encounter Details Date Type Department Care Team (Late st Contact Info) Description 08/26/2002 Outpatient Historical [facility] Internal Medicine Medical [place] [address] [address] Jace Greenwood MD [address] [place], [place] [id number] Social History Tobacco Use Types Packs/Day Years Used Date Smoking Tobacco: Never Assessed Comments Unknown Sex and Gender Information Value Date Recorded Sex Assigned at Not on file Legal Sex Female 3:37 AM SPINNER CONCRETE PIPE Gender Identity Not on file Sexual Orientation Not on file documented as of this encounter Plan of Treatment Not on file documented as of this encounter Visit Diagnoses Not on filedocumented in this encounter Care Teams Aircraft Worker Relationship Specialty Start Date End Date Doretha Quiros MD PCP - General 11/27/06 12/24/24 NO DME 08/13/18 documented as of this encounter
--- OUTSIDE RECORDS SUMMARY | 2025-06-04 12:17 | XMS_ITS | Encounter Summary ---
Author Organization [facility] Address 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
--- OUTSIDE RECORDS SUMMARY | 2025-06-04 12:17 | XMS_ITS | Clinical Summary ---
Author Organization [facility] Address [address] [place] [address] Phone Care Team Providers Care Hat Parts Cutter Machine Name Role Phone Unavailable Primary Care Provider Unavailabl e Allergies Active Allergy Reactions Criticality Noted Date Comments Metformin Diarrhea Low 02/18/2021 Medications calcium carbonate + vitamin D (CALTRATE+D) 600 mg-10 mcg (400 unit) Tablet Take 1 Tab by mouth 2 times daily. 0 Active baclofen (LIORESAL) 10 mg tablet Muscle spasm 0 Active latanoprost (XALATAN) 0.005 % solution INSTILL 1 DROP BOTH EYES EVERY NIGHT AT BEDTIME 2 Active traMADoL (ULTRAM) 50 mg tabletIndication s:Lumbosacral spondylosis without myelopathy Take 1 Tablet (50 mg) by mouth every 8 hours as needed for Pain. 2 Active omega-3 fatty acids-fish oil 300 mg-1,000 mg capsule Take 1 Capsule by mouth daily. Active naloxone (NARCAN) 4 mg/spray [place], Non-Aerosol EMERGENCY USE ONLY: Administer 1 spray (4 mg) in one nostril one time. May repeat in alternating nostrils every 2-3 min until responsive or EMS arrives. 2 Each 3 3 Active acetaminophen-co deine (TYLENOL #4) 300-60 mg tablet Take 1 Tablet by mouth 3 times daily. 3 Active oxyCODONE-acetam inophen (PERCOCET) 7.5-325 mg Tablet Take 1 Tablet by mouth every 6 hours. 3 Active lisinopril-hydro CHLOROthiazide (ZESTORETIC) 20-12.5 mg tabletIndication s:Essential hypertension Take 1 Tablet by mouth daily. 180 Tablet 3 3 Active metoprolol succinate (TOPROL XL) 100 mg Extended Release 24 hour tabletIndication s:Essential hypertension TAKE 1 TABLET BY MOUTH DAILY 90 Tablet 3 3 Active pantoprazole (PROTONIX) 40 mg Tablet, Delayed Release (E.C.)Indication s:Gastroesophage al reflux disease without esophagitis Take 1 Tablet (40 mg) by mouth daily. 90 Tablet 2 3 Active sertraline (ZOLOFT) 100 mg tabletIndication s:Moderate episode of recurrent major depressive disorder (CMS/HCC) Take 1 Tablet (100 mg) by mouth daily. 90 Tablet 3 3 Active traZODone (DESYREL) 100 mg tabletIndication s:Primary insomnia TAKE 1 TABLET BY MOUTH DAILY AT BEDTIME 90 Tablet 3 3 Active amLODIPine (NORVASC) 10 mg tabletIndication s:Essential hypertension TAKE 1 TABLET BY MOUTH DAILY 90 Tablet 2 3 Active alendronate (FOSAMAX) 70 mg tabletIndication s:Age-related osteoporosis with current pathological fracture with routine healing TAKE 1 TABLET BY MOUTH EVERY 7 DAYS. TAKE ON AN EMPTY STOMACH BEFORE OTHER MEDICATIONS. TAKE WITH 8 OUNCES OF WATER. STAY UPRIGHT FOR 30 MINUTES. 12 Tablet 3 4 Active atorvastatin (LIPITOR) 40 mg tabletIndication s:Hypercholester emia TAKE 1 TABLET(40 MG) BY MOUTH DAILY 30 Tablet 5 Active Active Problems Patient Care Coordination No te Formatting of this note migh t be different from the original. Primary Care: Doretha Quiros MD Referring Provider: No referring provider defined for this encounter. Other: Dr. Cayla Sarabia MD Ophthalmology Dr Loyloa PMJono- Dr Canchola Problem Noted Date Diagnosed Date Complication of surgical procedure 05/23/2022 Type 2 diabetes mellitus wit h diabetic peripheral angiopathy without gangrene, without long-term current use of insulin 02/18/2021 Overview (08/16/2021): Based on [facility] Home viist results 07/2021 Moderate episode [...] Encounters Date Type Department Care Team Description 06/03/2025 External Device Data STL ABSTRACTION Provider, Abstract 04/10/2025 External Device Data STL ABSTRACTION Provider, Abstract 04/09/2025 External Device Data STL ABSTRACTION Provider, Abstract 04/08/2025 External Device Data STL ABSTRACTION Provider, Abstract 03/26/[facility] [place] [facility] [address] [facility] [address] [address] Doretha Quiros MD Hypercholesteremia from Last 3 Months Immunizations Immunization Administration Dates Next Due (PFIZER)(12 YR UP) COVID-19 VACCINE - EMERGENCY USE AUTHORIZATION, MRNA, [id number]) 30 MCG/0.3 ML IM SUSP 07/01/2021,06/03/2021 (PNEUMOVAX [...] on file Legal Sex Female 3:37 AM BILL HIKER Gender Identity Not on file Sexual Orientation Not on file Occupation Industry Job Start Date Job End Date Not on file Not on file Not on file Not on file Last Filed Vital Signs Vital Sign Reading Time Taken Comments Blood Pressure 146/76 10/24/2023 8:41 AM BILL HIKER Pulse 75 10/24/2023 8:41 AM BILL HIKER Temperature 36.7 C (98 F) 10/24/2023 8:41 AM BILL HIKER Respiratory Rate 12 10/24/2023 8:41 AM BILL HIKER Oxygen Saturation 98% 10/24/2023 8:41 AM BILL HIKER Inhaled Oxygen Concentration - - Weight 54.9 kg (121 lb) 10/24/2023 8:41 AM BILL HIKER Height 157.5 cm (5' 2) 10/24/2023 8:41 AM BILL HIKER Body Mass Index 22.13 10/24/2023 8:41 AM BILL HIKER Plan of Treatment Health Maintenance Due Date Last Done Comments DTAP/TDAP/TD VACCINES (1 - Tdap) 1967 ZOSTER VACCINE (1 of 2) 1998 DIABETES MICROALBUMIN ANNUAL SCREEN 08/09/2022 08/09/2021, 10/20/2020 LDL CHOLESTEROL ANNUAL 08/09/2022 , 08/09/2021, 07/16/2020, Additional history exists DIABETES HBA1C Q 6 MONTHS 09/15/20222021, 08/09/2021, 02/18/2021, Additional history exists DIABETES ANNUAL RETINAL EXAM 05/24/202303/2022, 10/21/2020, 06/15/2020 RSV VACCINE (60+ or ) (1 - 1-dose 75+ series) 2023 DIABETES ANNUAL FOOT EXAM 03/16/2024 03/16/2023, 11/2020 COVID-19 Vaccine (2023-2 5 season) 2024 07/01/2021, 06/03/2021 OSTEOPOROSIS SCREENING 01/19/2025 0, 10/27/2014, 09/14/2010, Additional history exists INFLUENZA VACCINE (#1) 2025 2, 08/14/2020, 08/09/2019 COLORECTAL SCREENING Discontinued 10/10/2013, 10/10/2013, 11/15/2002 PNEUMOCOCCAL VACCINE 50+ YEARS Completed 0 08/01/2017, 04/22/2015, 12/26/2013 Colorectal Cancer Screening Discontinued FIT/FOBT Q 1 year Discontinued 04/16/2021, , 10/25/2016 FIT-DNA Q 3 years Discontinued Flex Sig/CT Colonography Q 5 years Discontinued Medical Devices Implanted Type Area Property Analyst Device Identifier Shelf Expiration Date Model / Serial / Lot Infuse Protein Kit [id number] - [id number] Implanted:Qt y: 1 on 05/09/2014 by Jose Cooper MD at [facility] Biological N/A: Spine Cervical Anterior [employer]- SOFAMOR DANEK 02/19/2016 [id number] / / [id number] Cement Rally Hv 40gm 0976-3760 - [id number] Implanted:Qt y: 2 on 09/21/2018 by Troy Dill MD at [facility] Cement Left: Knee JIMENEZ NEPHEW ORTHO 02/17/2023 [id number] / / [id number] Description:REQUISITION # [id number]. Hemostatic Surgicel 4x8in 1953 - [id number] Implanted:Qt y: 1 on 02/19/2018 by Cayla Sarabia MD at [facility] Hemostatic Left: Breast [employer] 08/19/20221951 / / [id number] Comp Fem Jrny2 [facility] Sz4 9812-3466 - [id number] Implanted:Qt y: 1 on 09/21/2018 by Troy Dill MD at [facility] Knee Left: Knee JIMENEZ NEPHEW ORTHO [id number] 02/24/2028 [id number] / / [id number] Patella Jrny Resurf Std 4095-3340 - [id number] Implanted:Qt y: 1 on 09/21/2018 by Troy Dill MD at [facility] Knee Left: Knee JIMENEZ NEPHEW ORTHO 07/15/2028 [id number] / / [id number] Comp Tib Jrny Bcs Npor Sz4 Lt [id number] - [id number] Implanted:Qt y: 1 on 09/21/2018 by Troy Dill MD at [facility] Knee Left: Knee JIMENEZ NEPHEW ORTHO [id number] 05/08/2028 [id number] / / [id number] Ins Jrny2 Sz3-4 Lt 9mm 2860-6133 - [id number] Implanted:Qt y: 1 on 09/21/2018 by Troy Dill MD at [facility] Knee Left: Knee JIMENEZ NEPHEW ORTHO 07/01/2028 [id number] / / [id number] Assure Plate Implanted:Qt y: 1 on 05/09/2014 by Jose Cooper MD at [facility] Plate N/A: Spine Cervical Anterior [facility] 110.234 / / Description:load # 210 Apr 202013 Assure Screw Implanted:Qt y: 4 on 05/09/2014 by Jose Cooper MD at [facility] Screw N/A: Spine Cervical Anterior [facility] 110.812 / / Description:load # 210 Apr 202013 Sealant Floseal W/ Adptr 10ml [id number] - [id number] Implanted:Qt y: 1 on 05/09/2014 by Jose Cooper MD at [facility] Sealant N/A: Spine Cervical Anterior GORE- BIOSCIENCE 06/19/2015 [id number] / / [id number] Sealant Floseal W/ Adptr 10ml [id number] - [id number] Implanted:Qt y: 1 on 05/09/2014 by Jose Cooper MD at [facility] Sealant N/A: Spine Cervical Anterior GORE- BIOSCIENCE 07/19/2015 [id number] / / [id number] Fortify 12mm Core, Height 19-25mm Implanted:Qt y: 1 on 05/09/2014 by Jose Cooper MD at [facility] N/A: Spine Cervical Anterior 151.051 / / Description:LOAD # 210; STER ILIZED 05-08-2014 Fortify 12mm Upper Endplate, [id number] Footprint Implanted:Qt y: 1 on 05/09/2014 by Jose Cooper MD at [facility] N/A: Spine Cervical Anterior 151.701 / / Description:LOAD # 210; STER ILIZED 05/08/2014 Fortify 12mm Lower Endplate, [id number] Footprint Implanted:Qt y: 1 on 05/09/2014 by Jose Copoer MD at [facility] N/A: Spine Cervical Anterior 151.751 / / Description:LOAD #210, STERI LIZED 05/08/2014 Procedures Procedure Name Priority Date/Time Associated Diagnosis Comments HEMOGLOBIN A1C Routine 03/16/2022 MICROALBUMIN/CREATIN INE RATIO, RANDOM UR Routine 08/09/2021 9:39 AM CDT Type 2 diabetes mellitus without complication, without long-term current use of insulin ([facility]) LIPID PANEL Routine 08/09/2021 9:39 AM CDT Hypercholesteremia OCCULT BLOOD IMMUNOASSAY, COLORECTAL SCREEN Routine 04/16/2021 5:37 PM CDT Screen for colon cancer HM DIABETES EYE EXAM Routine 10/21/2020 XR DEXA BONE DENSITY AXIAL 1 OR MORE SITES Routine 01/20/2020 10:35 AM BILL HIKER Hyperparathyroidism , primary Menopause ENDOSCOPY, COLON, DIAGNOSTIC Routine 10/10/2013 from Last 3 Months or Most Recently Relevant to Health Maintenance Results * HEMOGLOBIN A1C (03/16/2022) Pathologist [facility] ABSTRACTED HGB A1C 5.6 Blood us Abstract Provider CHEMISTRY ORDERABLES Edited Re sult - Final * (ABNORMAL) MICROALBUMIN/CREATININE RATIO, RANDOM UR (08/09/2021 9:39 AM CDT) MICROALBUMIN/C REAT RATIO, UR 7.0 <=25.0 mg/g [facility] CREATININE, URINE 398.2(A) 29.0 - 226.0 mg/dL [facility] MICROALBUMIN, URINE 29.8(A) 0.0 - 16.6 mg/dL [facility] Urine URINE SPECIMEN OBTAINED BY CLEAN CATCH PROCEDURE / Unknown 08/09/2021 9:39 AM CDT Doretha Quiros MD URINE ORDERABLES Final Resul t Performing Organization Address City/[facility]/ZIP Co de Phone Number [facility] [address] [place] [address] * (ABNORMAL) LIPID PANEL (08/09/2021 9:39 AM CDT) Pathologist [facility] CHOLESTEROL 159 <=200 mg/dL [facility] TRIGLYCERIDE 60 <=150 mg/dL [facility] HDL 44 40 - 59 mg/dL [facility] LDL CALCULATED 103(A) <=100 mg/dL [facility] Blood 08/09/2021 9:39 AM CDT Doretha Quiros MD CHEMISTRY ORDERABLES Final R esult Performing Organization Address [facility] Co de Phone Number [facility] [address] [place] [address] * OCCULT BLOOD IMMUNOASSAY, COLORECTAL SCREEN (04/16/2021 5:37 PM CDT) Pathologist [facility] OCCULT BLOOD, STOOL Negative Negative 04/28/2021 6:41 PM CDT [facility] Stool STOOL SPECIMEN / Unknown Collection / Unknown 04/16/2021 5:37 PM CDT 04/28/2021 5:37 PM CDT Doretha Quiros MD BODY FLUIDS AND STOOLS Final Result Performing Organization Address City/[facility] Co de Phone Number [facility] Cleverlize [facility] CLIA# [id number] [address] [place] [address] * DIABETES EYE EXAM (10/21/2020) us St Other HEALTH MAINTENANCE Edited Result - Final [facility] SUPA KERN MD [facility]# [id number] [address] [address] * XR DEXA BONE DENSITY AXIAL 1 OR MORE SITES (01/20/2020 10:35 AM BILL HIKER) Anatomical Region Laterality Modality Digital Radiogra phy 01/20/2020 10:3 5 AM BILL HIKER Narrative 01/20/2020 11:09 AM BILL HIKER XR DEXA BONE DENSITY AXIAL 1 OR MORE SITES DATE: 01/20/2020 10:35 AM HISTORY: 69 years old Female with post menopausal symptoms. PROCEDURE: Planar images of the lumbar spine and hip(s) using a MyCube DEXA scanner for bone mineral density determination [...] Paredes DO DICTATION LOCATION: Location 1 - [facility] Procedure Note Crow Paredes DO - 01/20/2020 XR DEXA BONE DENSITY AXIAL 1 OR MORE SITES DATE: 01/20/2020 10:35 AM HISTORY: 69 years old Female with post menopausal symptoms. PROCEDURE: Planar images of the lumbar spine and hip(s) using a MyCube DEXA scanner for bone mineral density determination [...] years thereafter Dictated by Dr. Crow Paredes, DICTATION LOCATION: Location 1 - [facility] Doretha Quiros MD DIAGNOSTIC IMAGING ORDERABLE S Final Result * ENDOSCOPY, COLON, DIAGNOSTIC (10/10/2013) Doretha Quiros MD GI PROCEDURE ORDERABLES Nancy l Result [facility] from Last 3 Months or Most Recently Relevant to Health Maintenance [place] [address] [address] [place] [id number] MEDICA[place] RX [employer] RX Member Subscriber Plan / Payer (Ef fective for All Dates) Name:Daniela Wells Relation to Subscriber:Self Name:Daniela Wells Subscriber ID:Not on file Payer ID:Not on file Group ID:[id number] Type:RX Medicare Part D Address: [place] RX OPT[employer] RX Member Subscriber Plan / Payer (Ef fective for All Dates) Name:Daniela Wells Relation to Subscriber:Self Name:Daniela Wells Payer ID:Not on file Group ID:[id number] Type:RX Medicare Part D Address: [address] [place] [place] RX LINDA PLANS (INTERNAL) [facility] Plans Advance Directives For more information, please contact: [phone] * Full Code (Latest Code Status on [...] 12:10 PM 05/11/2014 1:07 PM Care Teams Hat Parts Cutter Machine Relationship Specialty Start Date End Date NO DME 08/13/18
--- OUTSIDE RECORDS SUMMARY | 2025-06-04 12:17 | XMS_ITS | Encounter Summary ---
Author Organization [employer] Address [address] [place] [address] Care Team Providers Care Automat Car Attendant Name Role Phone Doretha Quiros MD Primary Care Provider [phone] Encounter Details Date Type Department Care Team (Latest Contact Info) Description 08/25/2003 Outpatient [facility] Haile Gonsales MD [address] [address] HEMATURIA (Primary Dx) Social History Tobacco Use Types Packs/Day Years Used Date Smoking Tobacco: Never Assessed Comments Unknown Sex and Gender Information Value Date Recorded Sex Assigned at Not on file Legal Sex Female 3:37 AM BUFFING WHEEL PRESSER Gender Identity Not on file Sexual Orientation Not on file documented as of this encounter Plan of Treatment Not on file documented as of this encounter Visit Diagnoses Diagnosis Hematuria- Primary documented in this encounter Care Teams Automat Car Attendant Relationship Specialty Start Date End Date Doretha Quiros MD PCP - General 11/27/06 12/24/24 NO DME 08/13/18 documented as of this encounter
--- OUTSIDE RECORDS SUMMARY | 2025-06-04 12:17 | XMS_ITS | Encounter Summary ---
Author Organization [facility] Address [address] [place] [address] Care Team Providers Care Meat Processor Name Role Phone Doretha Quiros MD Primary Care Provider [phone] Encounter Details Date Type Department Care Team (Latest Contact Info) Description 10/06/2003 Outpatient Historical HIS [facility] RUDDY Greenwood, Jace Zazueta MD [address] [place] [address] CHEST PAIN NEC (Primary Dx) Social History Tobacco Use Types Packs/Day Years Used Date Smoking Tobacco: Never Assessed Comments Unknown Sex and Gender Information Value Date Recorded Sex Assigned at Not on file Legal Sex Female 3:37 AM NEWS LIBRARY DIRECTOR Gender Identity Not on file Sexual Orientation Not on file documented as of this encounter Plan of Treatment Not on file documented as of this encounter Visit Diagnoses Diagnosis Other chest pain- Primary documented in this encounter Care Teams Meat Processor Relationship Specialty Start Date End Date Doretha Quiros MD PCP - General 11/27/06 12/24/24 NO DME 08/13/18 documented as of this encounter
--- OUTSIDE RECORDS SUMMARY | 2025-06-04 12:17 | XMS_ITS | Encounter Summary ---
Author Organization [facility] Address [address] [place] [address] Care Team Providers Care Handle Finisher Name Role Phone Doretha Quiros MD Primary Care Provider [phone] Encounter Details Date Type Department Care Team (Latest Contact Info) Description 10/10/2003 Outpatient Historical HIS [facility] RUDDY Greenwood, Jace Zazueta MD [address] [place] [address] JOINT PAIN-UNSPEC (Primary Dx) Social History Tobacco Use Types Packs/Day Years Used Date Smoking Tobacco: Never Assessed Comments Unknown Sex and Gender Information Value Date Recorded Sex Assigned at Not on file Legal Sex Female 3:37 AM RESOURCE MANAGER FORESTER Gender Identity Not on file Sexual Orientation Not on file documented as of this encounter Plan of Treatment Not on file documented as of this encounter Visit Diagnoses Diagnosis Pain in joint, site unspecified- Primary documented in this encounter Care Teams Handle Finisher Relationship Specialty Start Date End Date Doretha Quiros MD PCP - General 11/27/06 12/24/24 NO DME 08/13/18 documented as of this encounter
--- OUTSIDE RECORDS SUMMARY | 2025-06-04 12:17 | XMS_ITS | Encounter Summary ---
Author Organization [facility] Address [address] [place] [address] Care Team Providers Care Supervisor Esters And Emulsifiers Name Role Phone Doretha Quiros MD Primary Care Provider [phone] Encounter Details Date Type Department Care Team (Latest Contact Info) Description 11/05/2002 Outpatient Historical HIS [facility] RUDDY Greenwood, Jace Zazueta MD [address] [place] [address] ROUTINE MEDICAL EXAM (Primary Dx) Social History Tobacco Use Types Packs/Day Years Used Date Smoking Tobacco: Never Assessed Comments Unknown Sex and Gender Information Value Date Recorded Sex Assigned at Not on file Legal Sex Female 3:37 AM SENIOR APPLICATIONS ANALYST Gender Identity Not on file Sexual Orientation Not on file documented as of this encounter Plan of Treatment Not on file documented as of this encounter Visit Diagnoses Diagnosis Routine general medical examination at a health care facility- Primary documented in this encounter Care Teams Supervisor Esters And Emulsifiers Relationship Specialty Start Date End Date Doretha Quiros MD PCP - General 11/27/06 12/24/24 NO DME 08/13/18 documented as of this encounter
--- OUTSIDE RECORDS SUMMARY | 2025-06-04 12:17 | XMS_ITS | Encounter Summary ---
Author Organization [facility] Address [address] [place] [address] Care Team Providers Care Hydroelectric Plant Maintainer Name Role Phone Doretha Quiros MD Primary Care Provider [phone] Encounter Details Date Type Department Care Team (Latest Contact Info) Description 10/19/2002 Outpatient Historical HIS [facility] RUDDY Greenwood, Jace Zazueta MD [address] [place] [address] SCREENING MAMM-MAILG NEOPL-OTHER (Primary Dx) Social History Tobacco Use Types Packs/Day Years Used Date Smoking Tobacco: Never Assessed Comments Unknown Sex and Gender Information Value Date Recorded Sex Assigned at Not on file Legal Sex Female 3:37 AM BARREL BUNG REMOVER AND DUMPER Gender Identity Not on file Sexual Orientation Not on file documented as of this encounter Plan of Treatment Not on file documented as of this encounter Visit Diagnoses Diagnosis Other screening mammogram- Primary documented in this encounter Care Teams Hydroelectric Plant Maintainer Relationship Specialty Start Date End Date Doretha Quiros MD PCP - General 11/27/06 12/24/24 NO DME 08/13/18 documented as of this encounter
--- OUTSIDE RECORDS SUMMARY | 2025-06-04 12:17 | XMS_ITS | Encounter Summary ---
Author Organization [facility] Address [address] [place] [address] Care Team Providers Care Program Manager Transportation Name Role Phone Doretha Quiros MD Primary Care Provider [phone] Encounter Details Date Type Department Care Team (Latest Contact Info) Description 07/18/2003 Outpatient Historical HIS [facility] RUDDY Greenwood, Jace Zazueta MD [address] [place] [address] HYPERTENSION NOS (Primary Dx) Social History Tobacco Use Types Packs/Day Years Used Date Smoking Tobacco: Never Assessed Comments Unknown Sex and Gender Information Value Date Recorded Sex Assigned at Not on file Legal Sex Female 3:37 AM FOOD SAFETY SPECIALIST Gender Identity Not on file Sexual Orientation Not on file documented as of this encounter Plan of Treatment Not on file documented as of this encounter Visit Diagnoses Diagnosis Unspecified essential hypertension- Primary documented in this encounter Care Teams Program Manager Transportation Relationship Specialty Start Date End Date Doretha Quiros MD PCP - General 11/27/06 12/24/24 NO DME 08/13/18 documented as of this encounter
--- OUTSIDE RECORDS SUMMARY | 2025-06-04 12:17 | XMS_ITS ---
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
--- OUTSIDE RECORDS SUMMARY | 2025-06-04 12:17 | XMS_ITS | Encounter Summary ---
Author Organization [facility] Address [address] [place] [address] Care Team Providers Care Aircraft Powerplant Repairer Name Role Phone Doretha Quiros MD Primary Care Provider [phone] Encounter Details Date Type Department Care Team (Latest Contact Info) Description 04/17/2003 Outpatient Historical HIS [facility] RUDDY Greenwood, Jace Zazueta MD [address] [place] [address] OTHER MALAISE AND FATIGUE (Primary Dx) Social History Tobacco Use Types Packs/Day Years Used Date Smoking Tobacco: Never Assessed Comments Unknown Sex and Gender Information Value Date Recorded Sex Assigned at Not on file Legal Sex Female 3:37 AM ENDO TECH Gender Identity Not on file Sexual Orientation Not on file documented as of this encounter Plan of Treatment Not on file documented as of this encounter Visit Diagnoses Diagnosis Other malaise and fatigue- Primary documented in this encounter Care Teams Aircraft Powerplant Repairer Relationship Specialty Start Date End Date Doretha Quiros MD PCP - General 11/27/06 12/24/24 NO DME 08/13/18 documented as of this encounter
--- OUTSIDE RECORDS SUMMARY | 2025-06-04 12:17 | XMS_ITS | Encounter Summary ---
Author Organization [facility] Address [address] [place] [address] Care Team Providers Care Paper Testing Supervisor Name Role Phone Doretha Quiros MD Primary Care Provider [phone] Encounter Details Date Type Department Care Team (Late st Contact Info) Description 04/30/2003 Outpatient Historical [facility] Internal Medicine Medical [place] [address] [facility] [address] [address] Jace Greenwood MD [address] [place], [place] [id number] Social History Tobacco Use Types Packs/Day Years Used Date Smoking Tobacco: Never Assessed Comments Unknown Sex and Gender Information Value Date Recorded Sex Assigned at Not on file Legal Sex Female 3:37 AM RN ELIGIBILITY Gender Identity Not on file Sexual Orientation Not on file documented as of this encounter Plan of Treatment Not on file documented as of this encounter Visit Diagnoses Not on filedocumented in this encounter Care Teams Paper Testing Supervisor Relationship Specialty Start Date End Date Doretha Quiros MD PCP - General 11/27/06 12/24/24 NO DME 08/13/18 documented as of this encounter
--- OUTSIDE RECORDS SUMMARY | 2025-06-04 12:17 | XMS_ITS | Encounter Summary ---
Author Organization [facility] Address [address] [place] [address] Care Team Providers Care Farmhand Name Role Phone Doretha Quiros MD Primary Care Provider [phone] Encounter Details Date Type Department Care Team (Late st Contact Info) Description 10/10/2003 Outpatient Historical [facility] Internal Medicine Medical [place] A [address] [address] Jace Greenwood MD [address] [place], [place] [id number] Social History Tobacco Use Types Packs/Day Years Used Date Smoking Tobacco: Never Assessed Comments Unknown Sex and Gender Information Value Date Recorded Sex Assigned at Not on file Legal Sex Female 3:37 AM MINT MACHINE OPERATOR Gender Identity Not on file Sexual Orientation Not on file documented as of this encounter Plan of Treatment Not on file documented as of this encounter Visit Diagnoses Not on filedocumented in this encounter Care Teams Farmhand Relationship Specialty Start Date End Date Doretha Quiros MD PCP - General 11/27/06 12/24/24 NO DME 08/13/18 documented as of this encounter
--- OUTSIDE RECORDS SUMMARY | 2025-06-04 12:17 | XMS_ITS | Encounter Summary ---
Author Organization [facility] Address [address] [place] [address] Care Team Providers Care Student Activities Director Name Role Phone Unavailable Primary Care Provider Kiara e Encounter Details Date Type Department Care Team (Late st Contact Info) Description 06/03/2025 External Device Data STL ABSTRACTION Provider, Abstract NO ADDRESS ON FILE Social History Tobacco Use Types Packs/Day Years Used Date Smoking Tobacco: Never Smokeless Tobacco: Never Alcohol Use Standard Drinks/Week Comments No 0 (1 standard drink = 0.6 oz pur e alcohol) Comments No Sex and Gender Information Value Date Recorded Sex Assigned at Not on file Legal Sex Female 3:37 AM MULTIPLE TUBE WINDING MACHINE OPERATOR Gender Identity Not on file [...] Noted Time PHQ-9 Depression Total Score: 2 08/19/20 22 2:10 PM CDT documented as of this encounter Care Teams Student Activities Director Relationship Specialty Start Date End Date NO DME 08/13/18 documented as of this encounter
--- OUTSIDE RECORDS SUMMARY | 2025-06-04 12:17 | XMS_ITS | Encounter Summary ---
Author Organization [employer] Address [address] [place] [address] Care Team Providers Care Arabic Translator Name Role Phone Doretha Quiros MD Primary Care Provider [phone] Encounter Details Date Type Department Care Team (Latest Contact Info) Description 10/10/2003 Outpatient Historical [facility]-PATIENT Haile Gonsales MD [address] [address] HEMATURIA (Primary Dx) Social History Tobacco Use Types Packs/Day Years Used Date Smoking Tobacco: Never Assessed Comments Unknown Sex and Gender Information Value Date Recorded Sex Assigned at Not on file Legal Sex Female 3:37 AM TAR DISTRIBUTOR OPERATOR Gender Identity Not on file Sexual Orientation Not on file documented as of this encounter Plan of Treatment Not on file documented as of this encounter Visit Diagnoses Diagnosis Hematuria- Primary documented in this encounter Care Teams Arabic Translator Relationship Specialty Start Date End Date Doretha Quiros MD PCP - General 11/27/06 12/24/24 NO DME 08/13/18 documented as of this encounter
--- OUTSIDE RECORDS SUMMARY | 2025-06-04 12:17 | XMS_ITS | Encounter Summary ---
Author Organization [employer] Address [address] [place] [address] Care Team Providers Care Mainframe Systems Engineer Name Role Phone Doretha Quiros MD Primary Care Provider [phone] Encounter Details Date Type Department Care Team (Late st Contact Info) Description 11/15/2002 Outpatient Historical [facility] Nic Cool MD [address] [place] [address] [address] [place] [address] SCREENING MAL NEOP-COLON (Primary Dx) Social History Tobacco Use Types Packs/Day Years Used Date Smoking Tobacco: Never Assessed Comments Unknown Sex and Gender Information Value Date Recorded Sex Assigned at Not on file Legal Sex Female 3:37 AM SUPPLY COORDINATOR Gender Identity Not on file Sexual Orientation Not on file documented as of this encounter Plan of Treatment Not on file documented as of this encounter Visit Diagnoses Diagnosis Special screening for malignant neoplasms, colon- Primary documented in this encounter Care Teams Mainframe Systems Engineer Relationship Specialty Start Date End Date Doretha Quiros MD PCP - General 11/27/06 12/24/24 NO DME 08/13/18 documented as of this encounter
--- OUTSIDE RECORDS SUMMARY | 2025-06-04 12:17 | XMS_ITS | Encounter Summary ---
Author Organization [facility] Address [address] [place] [address] Care Team Providers Care Line Assembler Name Role Phone Doretha Quiros MD Primary Care Provider [phone] Encounter Details Date Type Department Care Team (Late st Contact Info) Description 08/11/2003 Outpatient Historical [facility] Internal Medicine Medical [place] A [address] [facility] [address] [address] Jace Greenwood MD [address] [place], [place] [id number] Social History Tobacco Use Types Packs/Day Years Used Date Smoking Tobacco: Never Assessed Comments Unknown Sex and Gender Information Value Date Recorded Sex Assigned at Not on file Legal Sex Female 3:37 AM STUDENT FINANCIAL AID MANAGER Gender Identity Not on file Sexual Orientation Not on file documented as of this encounter Plan of Treatment Not on file documented as of this encounter Visit Diagnoses Not on filedocumented in this encounter Care Teams Line Assembler Relationship Specialty Start Date End Date Doretha Qiuros MD PCP - General 11/27/06 12/24/24 NO DME 08/13/18 documented as of this encounter
--- OUTSIDE RECORDS SUMMARY | 2025-06-04 12:17 | XMS_ITS | Encounter Summary ---
Author Organization [employer] Address [address] [place] [address] Care Team Providers Care Online Marketing Coordinator Name Role Phone Doretha Quiros MD Primary Care Provider [phone] Encounter Details Date Type Department Care Team (Latest Contact Info) Description 12/20/2002 Outpatient Historical [facility] CARD PHARMACOLOGISTEleuterio Rogel MD Department of Radiology [address] [place] [address] Nic Cool MD [address] [place] [address] [address] [place] [address] CHRONIC LIVER DIS NEC (Primary Dx) Social History Tobacco Use Types Packs/Day Years Used Date Smoking Tobacco: Never Assessed Comments Unknown Sex and Gender Information Value Date Recorded Sex Assigned at Not on file Legal Sex Female 3:37 AM HOSPICE EXECUTIVE DIRECTOR Gender Identity Not on file Sexual Orientation Not on file documented as of this encounter Plan of Treatment Not on file documented as of this encounter Visit Diagnoses Diagnosis Other chronic nonalcoholic liver disease- Primary documented in this encounter Care Teams Online Marketing Coordinator Relationship Specialty Start Date End Date Doretha Quiros MD PCP - General 11/27/06 12/24/24 NO DME 08/13/18 documented as of this encounter
--- OUTSIDE RECORDS SUMMARY | 2025-06-04 12:17 | XMS_ITS | Encounter Summary ---
Author Organization [facility] Address [address] [place] [address] Care Team Providers Care High Energy Forming Equipment Operator Name Role Phone Doretha Quiros MD Primary Care Provider [phone] Encounter Details Date Type Department Care Team (Late st Contact Info) Description 03/10/2003 Outpatient Historical [facility] Internal Medicine Medical [place] A [address] [facility] [address] [address] Jace Greenwood MD [address] [place], [place] [id number] Social History Tobacco Use Types Packs/Day Years Used Date Smoking Tobacco: Never Assessed Comments Unknown Sex and Gender Information Value Date Recorded Sex Assigned at Not on file Legal Sex Female 3:37 AM CRNP Gender Identity Not on file Sexual Orientation Not on file documented as of this encounter Plan of Treatment Not on file documented as of this encounter Visit Diagnoses Not on filedocumented in this encounter Care Teams High Energy Forming Equipment Operator Relationship Specialty Start Date End Date Doretha Quiros MD PCP - General 11/27/06 12/24/24 NO DME 08/13/18 documented as of this encounter
--- OUTSIDE RECORDS SUMMARY | 2025-06-04 12:17 | XMS_ITS | Encounter Summary ---
Author Organization [employer] Address [address] [place] [address] Care Team Providers Care Secy Name Role Phone Doretha Quiros MD Primary Care Provider [phone] Encounter Details Date Type Department Care Team (Late st Contact Info) Description 08/19/2003 Outpatient Historical [facility] Support Serv. (Adt Cardiology-[facility]) [address] [place] [address] Troy Contreras MD [address] [facility] [facility] [address] [place] [address] Social History Tobacco Use Types Packs/Day Years Used Date Smoking Tobacco: Never Assessed Comments Unknown Sex and Gender Information Value Date Recorded Sex Assigned at Not on file Legal Sex Female 3:37 AM PAGE DESIGNER Gender Identity Not on file Sexual Orientation Not on file documented as of this encounter Plan of Treatment Not on file documented as of this encounter Visit Diagnoses Not on filedocumented in this encounter Care Teams Secy Relationship Specialty Start Date End Date Doretha Quiros MD PCP - General 11/27/06 12/24/24 NO DME 08/13/18 documented as of this encounter
--- OUTSIDE RECORDS SUMMARY | 2025-06-04 12:17 | XMS_ITS | Encounter Summary ---
Author Organization [employer] Address [address] [place] [address] Care Team Providers Care Encoding Clerk Name Role Phone Doretha Quiros MD Primary Care Provider [phone] Encounter Details Date Type Department Care Team (Latest Contact Info) Description 08/19/2003 Outpatient Historical [facility] Jace Greenwood MD [address] [place] [address] CHEST PAIN NOS (Primary Dx) Social History Tobacco Use Types Packs/Day Years Used Date Smoking Tobacco: Never Assessed Comments Unknown Sex and Gender Information Value Date Recorded Sex Assigned at Not on file Legal Sex Female 3:37 AM HEARING THERAPY DIRECTOR Gender Identity Not on file Sexual Orientation Not on file documented as of this encounter Plan of Treatment Not on file documented as of this encounter Visit Diagnoses Diagnosis Chest pain, unspecified- Primary documented in this encounter Care Teams Encoding Clerk Relationship Specialty Start Date End Date Doretha Quiros MD PCP - General 11/27/06 12/24/24 NO DME 08/13/18 documented as of this encounter
--- OUTSIDE RECORDS SUMMARY | 2025-06-04 12:17 | XMS_ITS | Data Portability ---
Author Organization [facility] [employer], Main Office Address [address] [place] [address] Care Team Providers Care Historical Site Guide Name Role Phone MARK CEVALLOS Primary Care Provider Unavailabl MARK Ram Referring Provider Unavailable Assessment Encounter Date Assessment [...] than half of this time spent in [id number] care. [email or web address] Not available 05/21/2023 10:25:26 05/30/2023 [...] tavarez am No observ ation record ed. [id number] Not Available 01/18/2023 22:05:49 04/28/20 23 01/16/2023 XR, knee No observ ation record ed. [email or web address] Not Available 2022 15:31:18 Result Notes None recorded. Problems Name Problem SNOMED Code Status Onset Date Resolution Date Notes Provider Name and Address Organization Details Recorded Time Pain of right knee joint 87552327175978 0 Active 2022 LELE Dunaway null, [employer] [employer] 3 11:38:52 Pain due to varicose veins of lower extremity 976259559 Active 2022 Omid blanc MD [address], [address], [employer] 3 13:57:40 Varicose veins of lower extremity 30136863 Active 2022 Omid blanc MD [address], [address], [employer] 3 14:02:41 Problem Notes None recorded. Procedures Surgical History Date Name Laterality Status Provider Name and Address Organization Details Recorded Time Breast Surgery completed Not Available [facility] 01/18/2023 22:04:44 Neck Surgeries completed Not Available [facility] 01/18/2023 22:04:44 Knee Surgery completed Not Available [facility] 01/18/2023 22:04:44 operation on retina completed Not Available [facility] 01/18/2023 22:04:44 procedure on skin completed Not Available [facility] 01/18/2023 22:04:44 Knee Replacement completed Not Available [facility] 01/18/2023 22:04:44 Knee Surgery completed Not Available [facility] 01/18/2023 22:04:44 Imaging Results None recorded. Procedure Notes None recorded. Medical Equipment None [...] administe red by the provider 04/28 completed [facility]: 0003- 0494- 20 Not Available Not Available [...] administe red by the provider 04/28 completed [facility]: 0409- [id number]- 17 Not Available Not Available [...] Not Available Vitals Date Recorded Body height Body mass index (BMI) Body weight Provider Name and Address Organization Details Last Updated DateTime 04/28/2023 154.94 cm 24.2 kg/m2 59883.82 g LELE Dunaway [facility] [employer] 04/28/2023 12:03:16 Date Recorded Body height Body mass index (BMI) Body weight Heart rate Body temperature Respiratory rate Oxygen saturation Oxygen saturation in Arterial blood by Pulse oximetry Systolic And Diastolic Provider Name and Address Organization Details Last Updated DateTime 3 154.94 cm 24.2 kg/m2 65525.8 2 g 100 /min 97.9 [degF] 14 /min 97 % 97 % 130/78 mm[Hg] Cindy Bishop [place] [employer] [facility] [employer] 3 11:11:49 Date Recorded Body height Body mass index (BMI) Body weight Body temperature Respiratory rate Oxygen saturation Oxygen saturation in Arterial blood by Pulse oximetry Systolic And Diastolic Provider Name and Address Organization Details Last Updated DateTime 3 154.94 cm 24.2 kg/m2 06573.8 2 g 98.6 [degF] 14 /min 98 % 98 % 130/76 mm[Hg] Jenny Jackson MA [place] [facility] [employer] 3 10:27:23 Date Recorded Body height Provider Name an d Address Organization Details Last Updated DateTime 10/28/2021 152.4 cm Not Available [facility] 3 22:05:01 Date Recorded Body height Provider Name an d Address Organization Details Last Updated DateTime 11/18/2021 152.4 cm Not Available [facility] 3 22:05:01 Social History None recorded. Functional Status Question Answer Note LastModified by Organizat ion Details LastModified Time What is your level of alcohol consumption? None [id number] Information not available 01/18/2023 Mental Status None recorded. Family History Relationship Description Onset Age of this Age Resolved Age Notes LastModified by Organization Details LastModified Time Unspecified Relation Family history of malignant neoplasm [id number] Not available 01/18/2023 22:04:45 Unspecified Relation Hypertensive disorder [id number] Not available 01/18/2023 22:04:45 Medical History Condition Response BLINDNESS N KIDNEY STONES N CARPAL TUNNEL SYNDROME N MRSA N LUNG DISEASE/DISORDER N HISTORY OF DRUG ABUSE N RADIATION / CHEMOTHERAPY N COPD N SPORTS INJURY N ANKLE PAIN N BLOOD DISEASES N PAST SPINAL SURGERY N SCHIZOPHRENIA N SHINGLES N BOWEL PROBLEMS N SHOULDER PAIN N DEPRESSION (INCLUDING POST ) N FAILED BACK SYNDROME N STROKE/TIA N KNEE PAIN N ULCERS N OTHER MODALITIES N BENIGN PROSTATIC HYPERPLASIA N OBESITY N [...] N NEUROPATHY N AIDS/HIV N FRACTURES N ELBOW PAIN N HYPERTENSION Y TOURETTE'S N ANXIETY DISORDER N Metal allergy N BLOOD TRANSFUSION N ANEMIA/BLOOD DISORDER N BIPOLAR DISORDER N BRONCHITIS N OSTEOARTHRITIS N TUBERCULOSIS N FOOT PROBLEM N HEART VALVE DISORDERS N SLEEP APNEA N ALLERGIES/HAYFEVER N SOFT TISSUE INJURY N BACK INJECTIONS N INFECTIOUS DISEASE N HEART ARRHYTHMIA N INSOMNIA N ESRD N PAST INTERVENTIONAL PAIN MANAGEMENT HIST ORY N HIGH CHOLESTEROL / HYPERLIPIDEMIA Y RHEUMATOID ARTHRITIS N PAST MEDICATION HISTORY N PVD N EDEMA N CHRONIC PAIN SYNDROME N CAROTID BLOCKAGE N BACK / NECK PROBLEMS N HAVE YOU BEEN HOSPITALIZED OR SEEN IN [facility] ER IN THE PAST YEAR ? N BURSITIS N HERNIATED DISC N DIALYSIS N POLYCYSTIC OVARIES N FIBROMYALGIA N OSTEOPOROSIS N ARTHRITIS Y RESPIRATORY PROBLEMS N NO SIGNIFICANT PAST MEDICAL HISTORY N PAST HISTORY OF FALL N PERIPHERAL NEUROPATHY N DIABETES, TYPE N VON WILLIBRAND'S DISEASE N HEARTBURN / REFLUX N POST LAMINECTOMY SYNDROME N HEPATITIS / LIVER DISEASE N GOUT N SLEEP DISORDER N ALZHEIMER'S DISEASE N HERPES N HEADACHES/MIGRAINES N SEIZURES/EPILEPSY N VASCULAR DISEASE N Blood Disorder N HIP PAIN N DIZZINESS N HEAD TRAUMA OR INJURY [...] SNOMED-CT Code Diagnosis ICD10 Code Diagnosis Note [id number] Felipe Cantrell MD [facility] [address] [address] 07/22/2021 00:00:00 07/22/2021 11:03:36 [id number] MD ANGEL Barnes_MARCY [address] [address] 08/19/2021 00:00:00 08/29/2021 20:46:49 [id number] Felipe Cantrell MD [facility] [address] [address] 10/28/2021 00:00:00 11/28/2021 18:55:28 [id number] MD ANGEL Barnes_MARCY [address] [address] 11/18/2021 00:00:00 11/18/2021 14:22:39 [id number] MD GEO BarnesS_GMG [facility] [place] [place] [address] 04/28/2023 11:11:22 05/22/2023 09:28:17 Pain of right knee joint 8857683007 53511 M25.561 [id number] Omid crawford MD [facility] General Surgery [address] [address] 05/30/2023 10:55:04 05/30/2023 13:41:17 Pain due to varicose veins of lower extremity 364545883 I83.813 Bilateral Legs [id number] Omid crawford MD [facility] General Surgery [address] [address] 06/27/2023 10:25:46 06/28/2023 10:34:08 Varicose veins of lower extremity 91260068 I83.893 Bilat Legs Health Concerns Section Related Observation LastModified by Organization Detai ls LastModified Time None Recorded Concern Status LastModified by Organization Details LastModified Time None Recorded Advance Directives Directive None Recorded Payers Insurance Date Sequence Insurance Name Policy Number Policy Hansen Covered Member ID Hansen Member ID Guarantor Name 11/29/2023 1 [facility] (MEDICARE REPLACEMENT/A DVANTAGE - HMO) [id number] Daniela Wells [id number] Daniela Wells 08/08/2024 2 [place] WHEN MEDICARE OR MEDICARE REPLACEMENT PRIMARY) Daniela Wells [id number] Daniela Wells 11/29/2023 2 [employer] [place] - [place] ON OR AFTER 2020 (MEDICAID REPLACEMENT - HMO) Daniela Wells [id number] Daniela Wells Notes Date Note Type Note Provider [...] in the past. Felipe Cantrell MD [address], [address], [employer] [facility] [employer] 05/21/2023 10:25:41 05/30/2023 text/html Presents to clin ic to discuss bilateral lower leg aching. States she thinks she has varicose veins, notices bulging veins on BLEs. L > R. Wears compression stockings without relief. Omid Arroyo MD [address] [address], [place], [address], [employer] 05/30/2023 13:57:59 06/27/2023 text/html Presents to clin ic to discuss bilateral lower leg aching. States she thinks she has varicose veins, notices bulging veins on BLEs. L > R. Wears compression stockings without relief. No reflux on US, but she does have diameter of 0.6 cm of R SFJ and 0.8 cm of L SFJ Omid Arroyo MD [address] [address], [place], [address], [employer] [facility] [employer] 06/27/2023 14:02:57 OBGyn Episode No OBEpisode recorded.
--- OUTSIDE RECORDS SUMMARY | 2025-06-04 12:17 | XMS_ITS | Encounter Summary ---
Author Organization [facility] Address 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
--- OUTSIDE RECORDS SUMMARY | 2025-06-04 12:17 | XMS_ITS | Encounter Summary ---
Author Organization [facility] Address [address] [place] [address] Care Team Providers Care Buttonhole Machine Operator Name Role Phone Doretha Quiros MD Primary Care Provider [phone] Encounter Details Date Type Department Care Team (Latest Contact Info) Description 11/14/2002 Outpatient Historical HIS [facility] RUDDY Greenwood, Jace Zazueta MD [address] [place] [address] ABN BLOOD CHEMISTRY NEC (Primary Dx) Social History Tobacco Use Types Packs/Day Years Used Date Smoking Tobacco: Never Assessed Comments Unknown Sex and Gender Information Value Date Recorded Sex Assigned at Not on file 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
== END 2025-06-04 12:02 | disposition home or self-care (01) ==
PROVIDERS: PCP Nurse Practitioner Family; Visit Provider Pain Medicine Interventional Pain Medicine
DX: M43.8X4 Other specified deforming dorsopathies, thoracic region (principal); M43.8X6 Other specified deforming dorsopathies, lumbar region
CPT/HCPCS: 72072; 72100